=== PATIENT | male | born 1945 | race Caucasian/White ===

== ENCOUNTER 2017-08-15 11:19 | Emergency (ER) | payer OTHER ==
[2017-08-15 13:20] LABS: Basophils % (Auto) 0.5 % (0.0-1.8); Hematocrit 39.9 % (35.5-45.6); Hemoglobin 13.6 gm/dl (11.8-15.2); Mean Corpuscular HGB Conc 34 % (32-34); Mean Corpuscular Hemoglobin 30 pg (28-32); Mean Corpuscular Volume 89 fl (84-94); Platelet Count 288 K/mm3 (140-440); Red Blood Count 4.47 M/mm3 (3.65-5.03); Red Cell Distribution Width 12.5 % (13.2-15.2)
[2017-08-15 13:39] LABS: Bilirubin,Urine NEG (Negative); Blood,Urine MOD (Negative); Ketones,Urine NEG (Negative); Leukocyte Esterase,Urine TR (Negative); Nitrite,Urine NEG (Negative); Urobilinogen,Urine < 2.0 mg/dL (<2.0)
[2017-08-15 13:41] LABS: Bacteria,Urine 1+ /HPF (Negative)
[2017-08-15 13:42] LABS: RBC,Urine > 182.0 /HPF (0.0-6.0)
[2017-08-15 13:45] LABS: Alanine Aminotransferase 9 units/L (7-56); Albumin 4.1 g/dL (3.9-5); Albumin/Globulin Ratio 1.3 %; Alkaline Phosphatase 72 units/L (35-129); Anion Gap 18 mmol/L; BUN/Creatinine Ratio 18.88; Blood Urea Nitrogen 17 mg/dL (9-20); Calcium 8.8 mg/dL (8.4-10.2); Carbon Dioxide 25 mmol/L (22-30); Chloride 100.9 mmol/L (98-107); Glucose 85 mg/dL (75-100); Potassium 4.3 mmol/L (3.6-5.0); Sodium 140 mmol/L (137-145); Total Protein 7.3 g/dL (6.3-8.2)
[2017-08-15 15:31] VITALS: BP 170/85
[2017-08-15] MEDS ORDERED: MACROBID PO ONE (16:14)
--- NOTE | 2017-08-15 16:53 | Emergency Department Report ---
HPI - General Chief Complaint: Urogenital-Male Time Seen by Provider: 08/15/17 16:09 - HPI HPI: This is a 71-year-old male who presents to the emergency department with complaint of a few days of gross blood seen during urination. He will occasionally have some pain in the lower abdomen and/or pelvis but currently does not complain of any. He does not have any trouble urinating. He cannot tell me what surgery he had but says that this happened to him one time after a surgical procedure about 10 or 15 years ago. That is also last time that he appears to have seen a physician. He has not taken anything for his symptoms prior to presentation. He denies any fever, nausea, vomiting, back pain. No recent travel or sick contacts at home. No known aggravating or alleviating factors. The patient speaks some Hebrew but there is a ring which barrier and translation is done by the patient's [id number] over the phone. ED Past Medical Hx - Past Medical History Previous Medical History?: Yes Additional medical history: blood in urine with surgery - Surgical History Additional Surgical History: blood in urine with surgery - Social History Smoking Status: Never Smoker Substance Use Type: None - Medications Home Medications: Home Medications Medication Instructions Recorded Confirmed Last Taken Type Nitrofurantoin Kings/M-Cryst 100 mg PO Q12HR #14 capsule 08/15/17 Unknown Rx [Macrobid CAP] ED Review of Systems ROS: Stated complaint: BLOOD IN URINE Other details as noted in HPI Comment: All other systems reviewed and negative Constitutional: denies: chills, fever Eyes: denies: eye pain, eye discharge, vision change ENT: denies: ear pain, throat pain Respiratory: denies: cough, shortness of breath, wheezing Cardiovascular: denies: chest pain, palpitations Gastrointestinal: denies: nausea, vomiting Genitourinary: hematuria. denies: discharge Musculoskeletal: denies: back pain, joint swelling, arthralgia Skin: denies: rash, lesions Neurological: denies: headache, weakness, paresthesias Physical Exam - Physical Exam Vital Signs: Vital Signs 08/15/17 08/15/17 08/15/17 12:13 15:28 15:30 Temperature 98.2 F Pulse Rate 77 74 Respiratory 16 16 16 Rate Blood Pressure 174/90 Blood Pressure 170/85 [Left] O2 Sat by Pulse 98 100 Oximetry Physical Exam: GENERAL: The patient is well-developed well-nourished. HENT: Normocephalic. Atraumatic. Patient has moist mucous membranes. EYES: Extraocular motions are intact. Pupils equal reactive to light bilaterally. NECK: Supple. Trachea is midline. CHEST/LUNGS: Clear to auscultation. There is no respiratory distress noted. HEART/CARDIOVASCULAR: Regular. There is no tachycardia. There is no gallop rub or murmur. ABDOMEN: Abdomen is soft, nontender. Patient has normal bowel sounds. There is no abdominal distention. SKIN: Skin is warm and dry. NEURO: The patient is awake, alert, and oriented. The patient is cooperative. The patient has no focal neurologic deficits. The patient has normal speech and gait. MUSCULOSKELETAL: There is no tenderness or deformity. There is no limitation range of motion. There is no evidence of acute injury. ED Course Vital Signs 08/15/17 08/15/17 08/15/17 12:13 15:28 15:30 Temperature 98.2 F Pulse Rate 77 74 Respiratory 16 16 16 Rate Blood Pressure 174/90 Blood Pressure 170/85 [Left] O2 Sat by Pulse 98 100 Oximetry ED Medical Decision Making - Lab Data Result diagrams: 08/15/17 13:09 08/15/17 13:09 - Radiology Data Radiology results: report reviewed PROCEDURE: CT ABDOMEN PELVIS W CON TECHNIQUE: Computerized axial tomography of the abdomen and pelvis was performed after the IV injection of iodinated nonionic contrast. HISTORY: low abdominal pain, gross hematuria COMPARISON: No prior studies are available for comparison. FINDINGS: Visualized lower thorax: No significant abnormality. Liver: Normal size and attenuation. Spleen: Normal size and attenuation. Gallbladder and biliary system: Gallbladder is present. Pancreas: Normal. Adrenals: Normal. Kidneys: 6 millimeter low-density cyst in the right kidney midpole. GI tract: Appendix is visualized and does not appear inflamed. No bowel obstruction or inflammation. Lymph nodes and mesentery: Normal. Vasculature: Normal. Bladder: There is a lobular high density intraluminal filling defect, possibly related to soft tissue mass. This could also be related to blood clot. This measures up to 3.7 centimeters in maximum dimension. Reproductive organs: The prostate gland is heterogeneously enhancing and enlarged, measuring up to 5.9 centimeters transverse x 4.9 centimeters AP x 4.1 centimeters craniocaudal. Peritoneum: No free fluid. Musculoskeletal structures: Degenerative disc changes of the lumbar spine. Other: None. IMPRESSION: High density lobular filling defect within the urinary bladder may be related to blood clot or soft tissue mass. Pre contrast images could be obtained to determine if this area is enhancing or high density related to blood products. Recommend urology follow-up. Enlarged heterogeneous prostate gland. Recommend further evaluation - Medical Decision Making 71-year-old male presents with a few days of gross hematuria. He doesn't have any significant discomfort but is concerned about the hematuria and has not had followed up with a primary care physician about 10-15 years. His labs are mostly unremarkable except for the urinalysis which does show a urinary tract infection as well as the hematuria. Vital signs stable including being afebrile. A CT of the abdomen and pelvis was done that showed a filling defect of the bladder that could be a blood clot versus a soft tissue mass as well as showing some enlarged prostate. He was started on antibiotics for a urinary tract infection, which could be the source of the hematuria as well. However the patient understands that he will need to follow up with urology to make sure that the hematuria is not secondary to any type of malignancy or any other underlying condition. Using a family member as translation, all the questions were answered. - Differential Diagnosis UTI, malignancy, interstitial cystitis, nephrolithiasis Critical Care Time: No Critical care attestation.: If time is entered above; I have spent that time in minutes in the direct care of this critically ill patient, excluding procedure time. ED Disposition Clinical Impression: Gross hematuria, Enlarged prostate Hypertension Qualifiers: Hypertension type: essential hypertension Qualified Code(s): I10 - Essential ( primary) hypertension Disposition: DC- TO HOME OR SELFCARE Is pt being admited?: No Condition: Stable Instructions: Urinary Tract Infection in Men (ED), Acute Hematuria (ED), Hypertension (ED) Additional Instructions: Please follow up with a urologist as soon as possible. I have given you a referral for a local urologist, Dr. Seaman. Return to the emergency Department with any worsening of your symptoms or any acute distress. Take the antibiotics as prescribed. I have also given you a referral for some primary care physician's regarding your elevated blood pressure and to establish care for yearly annual physicals. Prescriptions: Nitrofurantoin Kings/M-Cryst [Macrobid CAP] 100 mg PO Q12HR #14 capsule Referrals: PRIMARY CARE, [Primary Care Provider] - 3-5 Days SALBADOR SEAMAN MD [Staff Physician] - 3-5 Days RUBINA BLACK JR, MD [Staff Physician] - 3-5 Days Forms: Work/School Release Form(ED) Time of Disposition: 19:35
[2017-08-15] MEDS ORDERED: NACL ONE (17:56)
--- NOTE | 2017-08-15 19:19 | Cat Scan Report ---
FINAL REPORT PROCEDURE: CT ABDOMEN PELVIS W CON TECHNIQUE: Computerized axial tomography of the abdomen and pelvis was performed after the IV injection of iodinated nonionic contrast. HISTORY: low abdominal pain, gross hematuria COMPARISON: No prior studies are available for comparison. FINDINGS: Visualized lower thorax: No significant abnormality. Liver: Normal size and attenuation. Spleen: Normal size and attenuation. Gallbladder and biliary system: Gallbladder is present. Pancreas: Normal. Adrenals: Normal. Kidneys: 6 millimeter low-density cyst in the right kidney midpole. GI tract: Appendix is visualized and does not appear inflamed. No bowel obstruction or inflammation. Lymph nodes and mesentery: Normal. Vasculature: Normal. Bladder: There is a lobular high density intraluminal filling defect, possibly related to soft tissue mass. This could also be related to blood clot. This measures up to 3.7 centimeters in maximum dimension. Reproductive organs: The prostate gland is heterogeneously enhancing and enlarged, measuring up to 5.9 centimeters transverse x 4.9 centimeters AP x 4.1 centimeters craniocaudal. Peritoneum: No free fluid. Musculoskeletal structures: Degenerative disc changes of the lumbar spine. Other: None. IMPRESSION: High density lobular filling defect within the urinary bladder may be related to blood clot or soft tissue mass. Pre contrast images could be obtained to determine if this area is enhancing or high density related to blood products. Recommend urology follow-up. Enlarged heterogeneous prostate gland. Recommend further evaluation
== END 2017-08-15 20:06 | disposition home or self-care (01) ==
LOC: ED 11:19
DX: R31.0 Gross hematuria (principal); I10 Essential (primary) hypertension; N40.0 Benign prostatic hyperplasia without lower urinary tract symptoms
CPT/HCPCS: 36415; 74177; 80053; 81001; 85025; 85730; 99284; Q9967

== ENCOUNTER 2017-08-23 07:09 | Day surgery (SDC) | payer OTHER ==
[2017-08-23] MEDS ORDERED: NACL BACTERIOSTATIC INFILTRATI ONE (07:28)
[2017-08-23] MEDS ORDERED: PEPCID PO NR (08:00)
[2017-08-23] MEDS ORDERED: NACL 0.9% 1000 ML 1,000 ML IV SCH (08:00)
--- NOTE | 2017-08-23 08:13 | Anesthesia Consultation ---
Anesthesia Consult and Med Hx Date of service: 08/23/17 - Airway Anesthetic Teeth Evaluation: Caps ROM Head & Neck: Adequate Mental/Hyoid Distance: Adequate Mallampati Class: Class II Intubation Access Assessment: Possibly Difficult - Pulmonary Exam CTA: Yes - Cardiac Exam Cardiac Exam: RRR - Pre-Operative Health Status ASA Pre-Surgery Classification: ASA1 Proposed Anesthetic Plan: General - Pulmonary Hx Smoking: No Hx Sleep Apnea: No (BECKI PRE SCREEN HIGH RISK) - Cardiovascular System Hx Hypertension: Yes (patient denies) - Central Nervous System Hx Neuromuscular Disorder: No (patient has redness and swelling left big toe - gout???) - Other Systems Hx Cancer: No - Additional Comments Anesthesia Medical History Comments: has had GA in past with no problems; speaks Maltese only
--- NOTE | 2017-08-23 08:14 | Anesthesia Day of Surgery ---
Anesthesia Day of Surgery - Day of Surgery Patient Examined: Yes Patient H&P Reviewed: Yes Patient is NPO: Yes
[2017-08-23 08:51] LABS: INR 0.94 (0.87-1.13)
[2017-08-23] MEDS: DILAUDID IV PRN ×4 (08:55→11:35)
[2017-08-23] MEDS ORDERED: DILAUDID ONE (09:58)
[2017-08-23] MEDS ORDERED: XYLOCAINE MPF 2% ONE (09:59)
[2017-08-23] MEDS ORDERED: DIPRIVAN 10 MG/ML IV ONE (09:59)
[2017-08-23] MEDS ORDERED: GARAMYCIN 120 MG in NACL 0.9% 100 ML IV SCH (10:00)
[2017-08-23] MEDS ORDERED: ANCEF/STERILE WATER 2 GM/20 ML IV NR (10:00)
[2017-08-23] MEDS ORDERED: GARAMYCIN/NS 120MG/100ML 120 MG/100 ML BAG IV SCH (10:30)
[2017-08-23] MEDS ORDERED: ZOFRAN ONE (10:38)
[2017-08-23] MEDS ORDERED: LASIX ONE (11:00)
[2017-08-23] MEDS ORDERED: WATER FOR IRRIG STERILE IR ONE (11:00)
[2017-08-23] MEDS ORDERED: ANCEF/STERILE WATER 2 GM/20 ML 2 GM/20 ML SYRINGE IV NR (11:00)
--- NOTE | 2017-08-23 11:08 | Discharge Summary ---
Short Stay Discharge Plan Activity: other (no straining ) Weight Bearing Status: Full Weight Bearing Diet: low fat, low cholesterol Special Instructions: other (teach [facility] care ) Durable Medical Equipment Needed Upon Discharge: other (castle ) Follow up with: PRIMARY CARE, [Primary Care Provider] - 7 Days OLAYINKA MALDONADO MD [Staff Physician] - 3 Days
--- NOTE | 2017-08-23 11:09 | Post Operative Note ---
Date of procedure: 08/23/17 Pre-op diagnosis: hematuria inc psa Post-op diagnosis: same Findings: nodular gland vascuklar Procedure: cysto rpg bipsies Anesthesia: GETA Surgeon: OLAYINKA MALDONADO Estimated blood loss: minimal Pathology: list (prostate) Specimen disposition: to lab Condition: stable Disposition: PACU
--- NOTE | 2017-08-23 11:39 | Fluoroscopy Report ---
RETROGRADE PYELOGRAM: History: Gross hematuria, elevated PSA. There is adequate filling of the ureters and intrarenal collecting systems with no filling defects or anatomic abnormalities identified. Please correlate with the procedural report by Dr. Murphy. Impression: No abnormality detected.
--- NOTE | 2017-08-23 12:08 | Post Anesthesia Evaluation ---
- Post Anesthesia Evaluation Patient Participated: Yes Airway Patent: Yes Stable Respiratory Function: Yes Nausea/Vomiting: No Temp > 96.8F: Yes Pain Manageable: Yes Adequeate Hydration: Yes Anesthesia Complications: No Block Receding Appropriately: Not Applicable Patient on Ventilator: No
[2017-08-23] MEDS ORDERED: NORCO 5/325 PO ONE (13:00)
--- NOTE | 2017-08-23 13:06 | Operative Report ---
PREOPERATIVE DIAGNOSES: Elevated PSA, enlarged prostate, possible bladder mass, hematuria. POSTOPERATIVE DIAGNOSES: Elevated PSA, enlarged prostate, possible bladder mass, hematuria with a very large irregular/nodular prostate. PROCEDURE: Cystoscopy, retrograde; prostate biopsy. SURGEON: Eric Murphy MD ANESTHESIA: General. FINDINGS: The gentleman from [facility] with a questionable previous urological history, who now presents for cystoscopy with hematuria and elevated PSA. DESCRIPTION OF PROCEDURE: The patient brought to the operating room and placed on the operating table. Following induction of anesthesia, placed in lithotomy position, prepped and draped in usual sterile fashion. Cystourethroscopy showed a very nodular prostate with inflammatory changes, open bladder neck, as if he had some sort of previous procedure. It was irregular and nodular. Bladder was 2+ trabeculated. There were no bladder tumors noted and the prostate was very vascular with large varices on the prostate. Retrograde showed good filling, good drainage. At this point, the ultrasound probe was placed, 6 biopsies on the right and 5 on the left was carried out. The patient tolerated the procedure well. Good core biopsies were obtained. No significant complication. The patient tolerated the procedure well and brought to recovery in stable condition. He has a 22-Maxwell. We let the family know have the Maxwell for a few days, need to await the pathology and see if there is any previous history that is relevant for this patient. JOB# [id number] CLAIRE/ISABEL
[2017-08-23] MEDS ORDERED: TRANSDERM-SCOP TD NR (14:36)
[2017-08-23] MEDS ORDERED: REGLAN IM ONE (16:59)
[2017-08-24 11:20] VITALS: BP 139/81
--- NOTE | 2017-08-24 12:02 | Ultrasound Report ---
ULTRASOUND GUIDANCE INTRAOPERATIVE - TRANSRECTAL: HISTORY: Prostate biopsy. Increased PSA. COMPARISON: None similar. FINDINGS: Transabdominal ultrasound guidance provided for Dr. Murphy for prostate biopsy. Prostate estimated at 45.5 cc. CONCLUSION: Prostate biopsy performed under ultrasound guidance. Thank you for the opportunity to participate in this patient's care.
== END 2017-08-23 17:37 | disposition home or self-care (01) ==
LOC: OR 07:09
PROVIDERS: ATTEND Urology
DX: N40.1 Benign prostatic hyperplasia with lower urinary tract symptoms (principal); R31.9 Hematuria, unspecified; N32.89 Other specified disorders of bladder; I10 Essential (primary) hypertension
CPT/HCPCS: 36415; 52005; 55700; 74420; 76998; 85610; 86850; 86900; 86901; 88305; 88341; 88342; 88344; A4217; J1170; J1580; J1940; J2405; J2704; J2765; J7030; Q9967

== ENCOUNTER 2022-07-13 00:52 | Inpatient (IN) | payer OTHER, MEDICARE ==
[2022-07-13] MEDS: NORepinephrine/NS 8 MG-250 ML 8 MG/250 ML INFUS..BTL IV SCH ×3 (00:58→16:31)
[2022-07-13] MEDS ORDERED: SODIUM CHLORIDE 0.9% 1000 ML 1,000 ML IV ONE (01:01)
--- NOTE | 2022-07-13 01:29 | XRay Report ---
Chest single view INDICATION: Chest pain IMPRESSION: Severe bilateral multifocal pneumonia especially within the right upper lobe where it is most severe. Endotracheal tube terminates at the level the mayra near the junction with the right ma instem bronchus and should be withdrawn 3 to 4 cm. Esophagogastric tube terminates within the stomach . Signer Name: López Chandler MD Signed: 07/13/2022 1:25 AM Workstation Name: [id number]
[2022-07-13 01:31] LABS: ABG Base Excess -20.8 mmol/L (-2.0-3.0); ABG HCO3 10.8 mmol/L (20.0-26.0); ABG Methemoglobin 0.8 % (0.0-1.5); ABG Oxygen Saturation 98.8 % (95.0-99.0); ABG PCO2 50.4 mm Hg; ABG PO2 197.4 mm Hg (80.0-90.0)
[2022-07-13 01:37] LABS: ABG PH 6.95 pH Units (7.350-7.450)
[2022-07-13 01:46] LABS: Mean Corpuscular HGB Conc 31 % (32-34); Mean Corpuscular Volume 97 fl (84-94); Platelet Count 211 K/mm3 (140-440); Red Cell Distribution Width 15.7 % (13.2-15.2)
[2022-07-13 01:48] LABS: Creatine Kinase MB 8.9 ng/mL (0.0-4.0)
[2022-07-13 01:50] LABS: Hematocrit 38.9 % (35.5-45.6); Hemoglobin 11.9 gm/dl (11.8-15.2)
[2022-07-13] MEDS ORDERED: SODIUM BICARBONATE 50 MEQ in SODIUM CHLORIDE 0.9% 1000 ML 1,000 ML IV SCH (02:00)
[2022-07-13] MEDS ORDERED: NORepinephrine/NS 8 MG-250 ML 8 MG/250 ML INFUS..BTL IV SCH (02:00)
[2022-07-13 02:02] LABS: INR 1.59 (0.87-1.13)
[2022-07-13 02:10] LABS: C-Reactive Protein 57.8 mg/dL (0.00-1.30)
[2022-07-13 02:22] LABS: Band Neutrophils # (Manual) 1.3 K/mm3; Basophils % (Manual) 0 % (0.0-1.8); Eosinophils % (Manual) 0 % (0.0-4.3); Platelet Estimate Consistent w Auto; Total Cells Counted 100
[2022-07-13 02:23] LABS: Albumin 2.7 g/dL (3.9-5); Calcium 8.3 mg/dL (8.4-10.2)
[2022-07-13 02:37] LABS: Color,Urine Yellow (Yellow)
[2022-07-13 02:41] LABS: Granular Casts,Urine 13 /LPF; Sperm,Urine 3+ /HPF (NP); WBC,Urine < 1.0 /HPF (0.0-6.0)
[2022-07-13 02:47] LABS: Amphetamine Screen,Urine Negative; Benzodiazepines Screen,Urine Negative; Cannabinoid Screen,Urine Negative; Cocaine Screen,Urine Negative; Methadone Screen,Urine Negative; Opiate Screen,Urine Negative
[2022-07-13] MEDS ORDERED: PIPERACILLIN/TAZOBACTAM 3.375 3.375 GM/50 ML BAG IV ONE (03:13)
--- NOTE | 2022-07-13 03:18 | Emergency Department Report ---
ED General Adult HPI - General Chief complaint: Cardiac Arrest/CPR Stated complaint: CARDIC ARREST PUI?: No Time Seen by Provider: 07/13/22 01:01 Source: EMS Mode of arrival: Stretcher Limitations: Other - History of Present Illness Initial comments: Per [facility] med 3, pt was using bathroom and went unresponsive. Down time 5 mins prior to EMS arrival. Pt was asystole on EMS arrival and compressions started. 2 rounds epi and 1 bicarb given and pt converted to sinus tach. Epi drip was started at 4 mcg/min by EMS. BG 162. 7.0 ETT established en route. Pt arrived to ED, EMS actively bagging pt. -: Sudden, minutes(s) Worsens with: none Associated Symptoms: denies: denies other symptoms, confusion, chest pain - Related Data Home Medications Medication Instructions Recorded Confirmed Last Taken No Known Home Medications [No 08/23/17 08/23/17 Unknown Reported Home Medications] Allergies Allergy/AdvReac Type Severity Reaction Status Date / Time No Known Allergies Allergy Verified 08/19/17 12:06 ED Review of Systems ROS: Stated complaint: CARDIC ARREST Other details as noted in HPI Comment: Unobtainable due to pts medical conditions ED Past Medical Hx - Past Medical History Previous Medical History?: Yes Hx Hypertension: Yes (patient denies) Additional medical history: blood in urine with surgery. enlarged prostate. bladder cancer? - Surgical History Past Surgical History?: Yes Additional Surgical History: blood in urine with surgery - Social History Smoking Status: Never Smoker - Medications Home Medications: Home Medications Medication Instructions Recorded Confirmed Last Taken Type No Known Home Medications [No 08/23/17 08/23/17 Unknown History Reported Home Medications] ED Physical Exam - General Limitations: Other General appearance: other (unresponisve intubated ) - Head Head exam: Present: atraumatic, normocephalic - Eye Eye exam: Present: other (irreactive ) - ENT ENT exam: Present: mucous membranes moist - Neck Neck exam: Present: normal inspection - Respiratory Respiratory exam: Present: wheezes, rales. Absent: respiratory distress - Cardiovascular Cardiovascular Exam: Present: normal rhythm, tachycardia. Absent: systolic murmur, diastolic murmur, rubs, gallop - GI/Abdominal GI/Abdominal exam: Present: soft, normal bowel sounds - Rectal Rectal exam: Present: deferred - Extremities Exam Extremities exam: Present: normal inspection - Back Exam Back exam: Present: normal inspection - Expanded Neurological Exam Expanded Best Eye Response (Tabor): (1) no response Best Motor Response (Erick): (1) no motor response Best Verbal Response (Tabor): (1) no verbal response Tabor Total: 3 - Skin Skin exam: Present: warm, dry, intact, normal color. Absent: rash ED Course Vital Signs 07/13/22 07/13/22 07/13/22 00:51 00:56 01:00 Temperature 97.5 F L Pulse Rate 98 H 105 H 111 H Respiratory 22 22 22 Rate Blood Pressure 68/28 Blood Pressure 52/31 [Left] O2 Sat by Pulse 94 94 92 Oximetry 07/13/22 07/13/22 07/13/22 01:06 01:10 01:15 Temperature Pulse Rate 134 H 133 H 138 H Respiratory 22 22 22 Rate Blood Pressure 155/70 154/63 164/83 Blood Pressure [Left] O2 Sat by Pulse 99 100 100 Oximetry 07/13/22 07/13/22 07/13/22 01:20 01:26 01:29 Temperature Pulse Rate 148 H 123 H 113 H Respiratory 22 22 Rate Blood Pressure 172/77 122/59 68/28 Blood Pressure [Left] O2 Sat by Pulse 100 100 98 Oximetry 07/13/22 07/13/22 07/13/22 01:30 01:36 01:40 Temperature Pulse Rate 131 H 111 H 94 H Respiratory 22 22 28 H Rate Blood Pressure 156/80 110/47 45/27 Blood Pressure [Left] O2 Sat by Pulse 100 99 93 Oximetry 07/13/22 07/13/22 07/13/22 01:46 01:50 01:55 Temperature Pulse Rate 72 140 H Respiratory 28 H 27 H 28 H Rate Blood Pressure 249/161 Blood Pressure [Left] O2 Sat by Pulse 86 82 L Oximetry 07/13/22 07/13/22 07/13/22 02:00 02:06 02:10 Temperature Pulse Rate 127 H 105 H 97 H Respiratory 28 H 28 H 28 H Rate Blood Pressure 249/161 72/43 74/43 Blood Pressure [Left] O2 Sat by Pulse 94 100 100 Oximetry 07/13/22 07/13/22 02:16 02:20 Temperature Pulse Rate 88 83 Respiratory 28 H 28 H Rate Blood Pressure 80/44 81/44 Blood Pressure [Left] O2 Sat by Pulse 100 100 Oximetry - ABG Interpretation Ph: 6.9 PCO2: 50 PO2: 195 Interpretation: metabolic acidosis - Central Line Placement Right IJ Consent Obtained: emergent situation Time Out Performed: Yes Patient Placed on Monitor/Pulse Ox: Yes Prep: mask, gown, gloves Central Line Prep: Chlorhexidine scrub Local Anesthesia Used: Lidocaine 1% Ultrasound Used for Placement: Yes Central Line Lumen Inserted: triple Reason for Insertion: Emergency Venous Access Bloods Obtained for Lab: No Central Line Position: good blood return, all ports aspirated, flus, sutured in place with 3-0, sutured in place with nyl Dressing Applied: Tegaderm, sterile gauze/tape Post Procedure X-Ray: tip of catheter in good p Patient Tolerated Procedure: well, no complications Complications: none ED Medical Decision Making - Lab Data Result diagrams: 07/13/22 01:06 07/13/22 01:06 - EKG Data -: EKG Interpreted by Me EKG shows normal: sinus rhythm Rate: tachycardia - EKG Data Interpretation: nonspecific ST-T wave yordan, other (RBBB) - Radiology Data Radiology results: report reviewed, image reviewed - Medical Decision Making work up showed : respiratory failure : intubated acidosis : 2ry to sepsis and ANA MARIA , bicarb and drip - Oneumonia cultures and abx - abnormal ekg : spoke with dr gilbert sent him a pict of EKG , will rule him out for PE gfr is low, will get v/q scan in am will start heparin untill then after ruling out ICH Critical Care Time: Yes Critical care time in (mins) excluding proc time.: 120 Critical care attestation.: If time is entered above; I have spent that time in minutes in the direct care of this critically ill patient, excluding procedure time. Critical Care Time: 120 ED Disposition Clinical Impression: Cardiac arrest, Sepsis, ANA MARIA (acute kidney injury), Pneumonia Disposition: ADMITTED INPATIENT Is pt being admited?: Yes Does the pt Need Aspirin: No Condition: Critical Instructions: Bacterial Pneumonia (ED) Referrals: LAURO CAMP MD [Primary Care Provider] - 3-5 Days
[2022-07-13] MEDS ORDERED: HEPARIN 10,000 UNITS/10 ML VIAL IV ONE (03:20)
--- NOTE | 2022-07-13 03:27 | XRay Report ---
Chest single view INDICATION: Chest pain IMPRESSION: Right IJ central venous line terminates at the SVC/right atrial junction. Severe bilatera l airspace pneumonia. No pneumothorax. Signer Name: López Chandler MD Signed: 07/13/2022 3:23 AM Workstation Name: [id number]
--- NOTE | 2022-07-13 03:55 | Cat Scan Report ---
CT head without contrast INDICATION : Cardiac arrest with altered mental status. TECHNIQUE: Axial imaging performed from the skull apex through the skull base without the use of con trast. All CT examinations performed at this facility utilize dose modulation, iterative reconstruct ion or weight-based dosing, when appropriate, to reduce radiation dose to as low as reasonably achiev able. COMPARISON: None FINDINGS: There is complete loss of pang-white differentiation throughout the cerebral cortex. There is effacement of the sulci diffusely. There is diffuse cerebral edema also involving the posterior cr anial fossa. No evidence of hydrocephalus. There is nonspecific periventricular white matter hypodens ities. There is hypodensity involving both basal ganglia. There is moderate opacities involving the right maxillary and ethmoid sinuses. IMPRESSION: Severe loss of pang-white differentiation with diffuse cerebral edema concerning for peter re anoxic brain injury. Signer Name: López Chandler MD Signed: 07/13/2022 3:51 AM Workstation Name: [facility]
[2022-07-13 04:11] LABS: ABG Base Excess -15.1 mmol/L (-2.0-3.0); ABG HCO3 11.1 mmol/L (20.0-26.0); ABG Methemoglobin 0.7 % (0.0-1.5); ABG Oxygen Saturation 93.9 % (95.0-99.0); ABG PCO2 27.7 mm Hg; ABG PH 7.221 pH Units (7.350-7.450); ABG PO2 78.2 mm Hg (80.0-90.0)
[2022-07-13] MEDS ORDERED: ALBUTEROL 2.5 MG/3 ML NEBU IH PRN (04:25)
[2022-07-13] MEDS ORDERED: ACETAMINOPHEN 325 MG TAB PO PRN (04:25)
[2022-07-13] MEDS ORDERED: ONDANSETRON 4 MG/2 ML INJ IV PRN (04:25)
[2022-07-13] MEDS ORDERED: MORPHINE 4 MG/1 ML INJ IV PRN (04:25)
[2022-07-13] MEDS ORDERED: MORPHINE 2 MG/1 ML INJ IV PRN (04:25)
[2022-07-13] MEDS ORDERED: hydrALAZINE 20 MG/1 ML INJ IV PRN (04:31)
--- NOTE | 2022-07-13 04:37 | History and Physical Report ---
History of Present Illness Date of examination: 07/13/22 Date of admission: 07/13/22 Chief complaint: Cardiac arrest History of present illness: 76 years old male with past medical history of bladder cancer, blood in the urine, prostate problem was brought to the hospital status post cardiac arrest. Pt was using bathroom and found unresponsive. Down time 5 mins prior to EMS arrival. Pt was asystole on EMS arrival . CPR was given and patient was given 2 rounds epi and 1 bicarb given and pt converted to sinus tach. Epi drip was started at 4 mcg/min by EMS. BG 162. Patient was intubated and brought to the emergency room. EMS actively bagging pt. In the emergency room patient EKG was abnormal. Subsequently Case was discussed with on-call cardiology. Patient CT scan of the head also shows severe anoxic brain injury. Also chest x-ray shows severe bilateral pneumonia.'s were going to admit the patient we will put the patient on ICU. We consult cardiology, critical care, neurology for evaluation. Past History Past Medical History: hypertension, other (blood in urine with surgery. enlarged prostate. bladder cancer?) Past Surgical History: Other (blood in urine with surgery) Social history: no significant social history Family history: hypertension Medications and Allergies Allergies Allergy/AdvReac Type Severity Reaction Status Date / Time No Known Allergies Allergy Verified 08/19/17 12:06 Home Medications Medication Instructions Recorded Confirmed Last Taken Type No Known Home Medications [No 08/23/17 08/23/17 Unknown History Reported Home Medications] Active Meds: Active Medications Acetaminophen (Acetaminophen 325 Mg Tab) 650 mg PO Q4H PRN PRN Reason: Pain MILD(1-3)/Fever >100.5/FORD Albuterol (Albuterol 2.5 Mg/3 Ml Nebu) 2.5 mg IH Q3HRT PRN PRN Reason: Shortness Of Breath Albuterol/Ipratropium (Ipratropium/Albuterol Sulfate 3 Ml Ampul.Neb) 1 ampul IH Q6HRT SUSY Famotidine (Famotidine 20 Mg/2 Ml Inj) 20 mg IV BID USSY Hydralazine HCl (Hydralazine 20 Mg/1 Ml Inj) 10 mg IV Q6H PRN PRN Reason: Blood Pressure NORepinephrine/NS 8 MG-250 ML (Norepinephrine/Ns 8 Mg-250 Ml (Double Conc)) 8 mg in 250 mls @ 3.75 mls/hr IV TITRATE SUSY; Protocol Last Titration: 07/13/22 04:25 Dose: 20 mcg/min, 37.5 mls/hr Sodium Bicarbonate 50 meq/ (Sodium Chloride) 1,050 mls @ 100 mls/hr IV DIRE CT SUSY Last Admin: 07/13/22 02:17 Dose: 100 mls/hr Dextrose/Sodium Chloride (D5ns) 1,000 mls @ 100 mls/hr IV DIRECT SSUY Vancomycin HCl (Vancomycin/Ns 1 Gm/250 Ml) 1 gm in 250 mls @ 166.667 mls/hr IV Q12H SUSY; Protocol Piperacillin Sod/Tazobactam Sod (Zosyn/Ns 4.5gm/100ml) 4.5 gm in 100 mls @ 200 mls/hr IV Q8H SUSY; Protocol Morphine Sulfate (Morphine 2 Mg/1 Ml Inj) 2 mg IV Q4H PRN PRN Reason: Pain, Moderate (4-6) Morphine Sulfate (Morphine 4 Mg/1 Ml Inj) 4 mg IV Q4H PRN PRN Reason: Pain , Severe (7-10) Ondansetron HCl (Ondansetron 4 Mg/2 Ml Inj) 4 mg IV Q8H PRN PRN Reason: Nausea And Vomiting Sodium Chloride (Sodium Chloride 0.9% 10 Ml Flush Syringe) 10 ml IV BID SUSY Sodium Chloride (Sodium Chloride 0.9% 10 Ml Flush Syringe) 10 ml IV PRN PRN PRN Reason: LINE FLUSH Review of Systems All systems: negative Constitutional: other (Unresponsive, cardiac arrest) Exam - Constitutional Vitals: Temp Pulse Resp BP Pulse Ox 97.5 F L 85 28 H 114/57 97 07/13/22 00:51 07/13/22 03:59 07/13/22 03:46 07/13/22 03:59 07/13/22 03:59 General appearance: Present: severe distress - EENT Eyes: Present: PERRL ENT: hearing intact, clear oral mucosa - Neck Neck: Present: supple, normal ROM - Respiratory Respiratory effort: normal Respiratory: bilateral: CTA - Cardiovascular Heart Sounds: Present: S1 & S2. Absent: rub, click - Extremities Extremities: pulses symmetrical, No edema Peripheral Pulses: within normal limits - Abdominal General gastrointestinal: Present: soft, non-tender, non-distended, normal bowel sounds Male genitourinary: Present: normal - Integumentary Integumentary: Present: clear, warm, dry - Musculoskeletal Musculoskeletal: gait normal, strength equal bilaterally - Psychiatric Psychiatric: other (Patient is unresponsive on vent) - Neurologic Neurologic: CNII-XII intact, moves all extremities, other (Patient is unresponsive on vent) HEART Score - HEART Score Troponin: Troponin T 0.014 ng/mL (0.00-0.029) 07/13/22 01:06 Results - Labs CBC & Chem 7: 07/13/22 01:06 07/13/22 01:06 Labs: Laboratory Last Values WBC 11.0 K/mm3 (4.5-11.0) 07/13/22 01:06 RBC 4.00 M/mm3 (3.65-5.03) 07/13/22 01:06 Hgb 11.9 gm/dl (11.8-15.2) 07/13/22 01:06 Hct 38.9 % (35.5-45.6) 07/13/22 01:06 MCV 97 fl (84-94) H 07/13/22 01:06 MCH 30 pg (28-32) 07/13/22 01:06 MCHC 31 % (32-34) L 07/13/22 01:06 RDW 15.7 % (13.2-15.2) H 07/13/22 01:06 Plt Count 211 K/mm3 (140-440) 07/13/22 01:06 Add Manual Diff Complete 07/13/22 01:06 Total Counted 100 07/13/22 01:06 Seg Neuts % (Manual) 61.0 % (40.0-70.0) 07/13/22 01:06 Band Neutrophils % 12.0 % 07/13/22 01:06 Lymphocytes % (Manual) 13.0 % (13.4-35.0) L 07/13/22 01:06 Reactive Lymphs % (Man) 0 % 07/13/22 01:06 Monocytes % (Manual) 3.0 % (0.0-7.3) 07/13/22 01:06 Eosinophils % (Manual) 0 % (0.0-4.3) 07/13/22 01:06 Basophils % (Manual) 0 % (0.0-1.8) 07/13/22 01:06 Metamyelocytes % 11.0 % 07/13/22 01:06 Myelocytes % 0 % 07/13/22 01:06 Promyelocytes % 0 % 07/13/22 01:06 Blast Cells % 0 % 07/13/22 01:06 Nucleated RBC % Not Reportable 07/13/22 01:06 Seg Neutrophils # Man 6.7 K/mm3 (1.8-7.7) 07/13/22 01:06 Band Neutrophils # 1.3 K/mm3 07/13/22 01:06 Lymphocytes # (Manual) 1.4 K/mm3 (1.2-5.4) 07/13/22 01:06 Abs React Lymphs (Man) 0.0 K/mm3 07/13/22 01:06 Monocytes # (Manual) 0.3 K/mm3 (0.0-0.8) 07/13/22 01:06 Eosinophils # (Manual) 0.0 K/mm3 (0.0-0.4) 07/13/22 01:06 Basophils # (Manual) 0.0 K/mm3 (0.0-0.1) 07/13/22 01:06 Metamyelocytes # 1.2 K/mm3 07/13/22 01:06 Myelocytes # 0.0 K/mm3 07/13/22 01:06 Promyelocytes # 0.0 K/mm3 07/13/22 01:06 Blast Cells # 0.0 K/mm3 07/13/22 01:06 WBC Morphology Not Reportable 07/13/22 01:06 Hypersegmented Neuts Not Reportable 07/13/22 01:06 Hyposegmented Neuts Not Reportable 07/13/22 01:06 Hypogranular Neuts Not Reportable 07/13/22 01:06 Smudge Cells Not Reportable 07/13/22 01:06 Toxic Granulation Not Reportable 07/13/22 01:06 Toxic Vacuolation Not Reportable 07/13/22 01:06 Dohle Bodies Not Reportable 07/13/22 01:06 Pelger-Huet Anomaly Not Reportable 07/13/22 01:06 Merlin Rods Not Reportable 07/13/22 01:06 Platelet Estimate Consistent w auto 07/13/22 01:06 Clumped Platelets Not Reportable 07/13/22 01:06 Plt Clumps, EDTA Not Reportable 07/13/22 01:06 Large Platelets Not Reportable 07/13/22 01:06 Giant Platelets Not Reportable 07/13/22 01:06 Platelet Satelliting Not Reportable 07/13/22 01:06 Plt Morphology Comment Not Reportable 07/13/22 01:06 RBC Morphology Not Reportable 07/13/22 01:06 Dimorphic RBCs Not Reportable 07/13/22 01:06 Polychromasia Not Reportable 07/13/22 01:06 Hypochromasia Not Reportable 07/13/22 01:06 Poikilocytosis Not Reportable 07/13/22 01:06 Anisocytosis Not Reportable 07/13/22 01:06 Microcytosis Not Reportable 07/13/22 01:06 Macrocytosis Not Reportable 07/13/22 01:06 Spherocytes Not Reportable 07/13/22 01:06 Pappenheimer Bodies Not Reportable 07/13/22 01:06 Sickle Cells Not Reportable 07/13/22 01:06 Target Cells Not Reportable 07/13/22 01:06 Tear Drop Cells Not Reportable 07/13/22 01:06 Ovalocytes Not Reportable 07/13/22 01:06 Helmet Cells Not Reportable 07/13/22 01:06 Myers-Costilla Bodies Not Reportable 07/13/22 01:06 Loring Rings Not Reportable 07/13/22 01:06 Trang Cells Not Reportable 07/13/22 01:06 Bite Cells Not Reportable 07/13/22 01:06 Crenated Cell Not Reportable 07/13/22 01:06 Elliptocytes Not Reportable 07/13/22 01:06 Acanthocytes (Spur) Not Reportable 07/13/22 01:06 Rouleaux Not Reportable 07/13/22 01:06 Hemoglobin C Crystals Not Reportable 07/13/22 01:06 Schistocytes Not Reportable 07/13/22 01:06 Malaria parasites Not Reportable 07/13/22 01:06 Vincenzo Bodies Not Reportable 07/13/22 01:06 Hem Pathologist Commnt No 07/13/22 01:06 PT 20.9 Sec. (12.2-14.9) H 07/13/22 01:06 INR 1.59 (0.87-1.13) H 07/13/22 01:06 ABG pH 7.221 pH Units (7.350-7.450) L 07/13/22 03:23 ABG pCO2 27.7 mm Hg 07/13/22 03:23 ABG pO2 78.2 mm Hg (80.0-90.0) L 07/13/22 03:23 ABG HCO3 11.1 mmol/L (20.0-26.0) L 07/13/22 03:23 ABG O2 Saturation 93.9 % (95.0-99.0) L 07/13/22 03:23 ABG O2 Content 15.8 (0.0-44) 07/13/22 03:23 ABG Base Excess -15.1 mmol/L (-2.0-3.0) L 07/13/22 03:23 ABG Hemoglobin 12.1 gm/dl (14.0-18.0) L 07/13/22 03:23 ABG Carboxyhemoglobin 1.0 % (0.0-5.0) 07/13/22 03:23 ABG Methemoglobin 0.7 % (0.0-1.5) 07/13/22 03:23 Oxyhemoglobin 92.3 % (95.0-99.0) L 07/13/22 03:23 FiO2 60 % 07/13/22 03:23 Sodium 133 mmol/L (137-145) L 07/13/22 01:06 Potassium 5.1 mmol/L (3.6-5.0) H 07/13/22 01:06 Chloride 90.2 mmol/L (98-107) L 07/13/22 01:06 Carbon Dioxide 10 mmol/L (22-30) L 07/13/22 01:06 Anion Gap 38 mmol/L 07/13/22 01:06 BUN 44 mg/dL (9-20) H 07/13/22 01:06 Creatinine 2.8 mg/dL (0.8-1.3) H 07/13/22 01:06 Estimated GFR 22 ml/min 07/13/22 01:06 BUN/Creatinine Ratio 16 % 07/13/22 01:06 Glucose 197 mg/dL (75-100) H 07/13/22 01:06 Lactic Acid 18.20 mmol/L (0.7-2.0) H* 07/13/22 01:06 Calcium 8.3 mg/dL (8.4-10.2) L 07/13/22 01:06 Magnesium 3.00 mg/dL (1.7-2.3) H 07/13/22 01:06 Total Bilirubin 0.90 mg/dL (0.1-1.2) 07/13/22 01:06 AST 432 units/L (5-40) H 07/13/22 01:06 ALT 101 units/L (7-56) H 07/13/22 01:06 Alkaline Phosphatase 123 units/L (35-129) 07/13/22 01:06 Total Creatine Kinase 342 units/L (55-170) H 07/13/22 01:06 Total Creatine Kinase 422 units/L (55-170) H 07/13/22 01:06 CK-MB (CK-2) 8.9 ng/mL (0.0-4.0) H 07/13/22 01:06 CK-MB (CK-2) Rel Index 2.1 (0-4) 07/13/22 01:06 Troponin T 0.014 ng/mL (0.00-0.029) 07/13/22 01:06 C-Reactive Protein 57.80 mg/dL (0.00-1.30) H 07/13/22 01:06 NT-Pro-B Natriuret Pep 3661 pg/mL (0-900) H 07/13/22 01:06 Total Protein 4.8 g/dL (6.3-8.2) L 07/13/22 01:06 Albumin 2.7 g/dL (3.9-5) L 07/13/22 01:06 Albumin/Globulin Ratio 1.3 % 07/13/22 01:06 Lipase 11 units/L (13-60) L 07/13/22 01:06 Urine Color Yellow (Yellow) 07/13/22 01:47 Urine Turbidity Slightly cloudy (Clear) 07/13/22 01:47 Specific [place] (Man) 1.020 (1.003-1.030) 07/13/22 01:47 Ur Protein (Man) 2+ mg/dL (Negative) 07/13/22 01:47 Ur Ketones (Man) Negative (Negative) 07/13/22 01:47 Ur Nitrite (Man) Negative (Negative) 07/13/22 01:47 Urine Bilirubin (Man) Negative (Negative) 07/13/22 01:47 Leukocyte Esterase (Man) Negative (Negative) 07/13/22 01:47 Urine WBC (Auto) < 1.0 /HPF (0.0-6.0) 07/13/22 01:47 Urine RBC (Auto) 4.0 /HPF (0.0-6.0) 07/13/22 01:47 Urine RBC (Manual) 3+ (Negative) 07/13/22 01:47 Granular Casts 13 /LPF 07/13/22 01:47 Urine Yeast (Budding) Few /HPF 07/13/22 01:47 Urine Sperm 3+ /HPF (HSE ADVISOR) 07/13/22 01:47 Urine Opiates Screen Negative 07/13/22 01:47 Urine Methadone Screen Negative 07/13/22 01:47 Ur Barbiturates Screen Negative 07/13/22 01:47 Ur Phencyclidine Scrn Negative 07/13/22 01:47 Ur Amphetamines Screen Negative 07/13/22 01:47 U Benzodiazepines Scrn Negative 07/13/22 01:47 Urine Cocaine Screen Negative 07/13/22 01:47 U Marijuana (THC) Screen Negative 07/13/22 01:47 Drugs of Abuse Note Disclamer 07/13/22 01:47 - Imaging and Cardiology Chest x-ray: report reviewed CT Scan - head: report reviewed Assessment and Plan VTE prophylaxis?: Mechanical Plan of care discussed with patient/family: Yes - Patient Problems (1) Acute respiratory failure Current Visit: Yes Status: Acute Plan to address problem: Admit the patient to the ICU. Patient is status post intubation. DuoNeb by ne bulizer every 4 hours. Albuterol via nebulizer every 4 hours as needed. Reconsult critical care evaluation (2) Cardiac arrest Current Visit: Yes Status: Acute Plan to address problem: Admit the patient to ICU. We will do the serial cardiac enzymes. Echocardiogram. Cardiology evaluation (3) Anoxic brain injury Current Visit: Yes Status: Acute Plan to address problem: Patient CT scan of the head shows anoxic brain injury. Patient is unresponsive. We will monitor the patient closely. Reconsult neurology for evaluation and treatment (4) Bladder cancer Current Visit: Yes Status: Acute Plan to address problem: We will continue the home medication outpatient follow-up with urology (5) ANA MARIA (acute kidney injury) Current Visit: Yes Status: Acute Plan to address problem: Avoid nephrotoxic drug. Renally dose medication. D5 normal saline at the rate of 100 cc/h. Recheck BMP in the morning. Consult nephrology if needed (6) Pneumonia Current Visit: Yes Status: Acute Plan to address problem: Vancomycin 1 g IV every 12 hours. Zosyn 4.5 g IV every 8 hours. We will do the blood culture and sputum culture. Recheck CBC BMP in the morning. Pulmonary evaluation (7) Sepsis Current Visit: Yes Status: Acute Plan to address problem: D5 normal saline at the rate of 100 cc/h.Vancomycin 1 g IV every 12 hours. Zosyn 4.5 g IV every 8 hours. We will do the blood culture and sputum culture. Recheck CBC BMP and lactic acid in the morning. Critical care evaluation (8) DVT prophylaxis Current Visit: Yes Status: Acute Plan to address problem: SCD for DVT prophylaxis because of severe anoxic brain injury. Pepcid 20 mg IV every 12 hours for GI prophylaxis. Patient is a full code
[2022-07-13 04:58] LABS: Hematocrit 36.3 % (35.5-45.6); Hemoglobin 11.3 gm/dl (11.8-15.2)
[2022-07-13] MEDS ORDERED: PIPERACIL/TAZOBACTA 4.5/NS 100 4.5 GM/100 ML VIAL IV SCH (05:00)
[2022-07-13] MEDS ORDERED: VANCOMYCIN PHARMACY TO DOSE IV SCH (05:00)
[2022-07-13] MEDS ORDERED: VANCOMYCIN/NS 1 GM/250 ML 1 GM/250 ML BAG IV ONE (05:00)
[2022-07-13] MEDS ORDERED: D5W/0.9% NACL 1,000 ML IV SCH (05:00)
[2022-07-13] MEDS ORDERED: VANCOMYCIN/NS 1 GM/250 ML 1 GM/250 ML BAG IV SCH (05:00)
[2022-07-13 05:02] LABS: INR 1.92 (0.87-1.13)
[2022-07-13 05:11] LABS: Partial Thromboplastin Time 94.4 Sec. (24.2-36.6)
[2022-07-13] MEDS ORDERED: CALCIUM CHLORIDE 1,000 MG/10 ML SYRINGE IV ONE (09:00)
[2022-07-13] MEDS ORDERED: EPINEPHrine 1 MG/10 ML SYRINGE ONE (09:00)
[2022-07-13] MEDS ORDERED: cefTRIAXone/NS 2 GM/100 ML 2 GM/100 ML BAG IV SCH (09:00)
[2022-07-13] MEDS ORDERED: AZITHROMYCIN/NS 500 MG/250 ML 500 MG/250 ML BAG IV SCH (09:00)
[2022-07-13] MEDS ORDERED: VASOPRESSIN 20 UNIT in SODIUM CHLORIDE 0.9% 100 ML IV SCH (09:00)
[2022-07-13] MEDS ORDERED: SODIUM BICARB 8.4% 50 MEQ/50 ML SYRINGE IV ONE (09:00)
[2022-07-13] MEDS: IPRATROPIUM/ALBUTEROL SULFATE 3 ML AMPUL.NEB IH SCH ×3 (09:12→20:50)
[2022-07-13] MEDS: FAMOTIDINE 20 MG/2 ML INJ IV SCH (09:34)
[2022-07-13 10:00] LABS: Hematocrit 39.3 % (35.5-45.6); Hemoglobin 12.6 gm/dl (11.8-15.2); Mean Corpuscular HGB Conc 32 % (32-34); Mean Corpuscular Volume 92 fl (84-94); Platelet Count 164 K/mm3 (140-440); Red Blood Count 4.26 M/mm3 (3.65-5.03)
[2022-07-13] MEDS ORDERED: FAMOTIDINE 20 MG/2 ML INJ IV SCH (10:00)
[2022-07-13 10:23] LABS: Calcium 6.3 mg/dL (8.4-10.2)
--- NOTE | 2022-07-13 11:11 | Consultation ---
History of Present Illness Consult date: 07/13/22 Requesting physician: LIZ FERNANDO Reason for consult: other (out of hospital cardiac arrest) History of present illness: 76 y/o male out of hospital cardiac arrest. Per report on down for 5 minutes prior to EMS arrival and CPR was being done but patient was in asystole per documentation when EMS arrived. After 2 epi and a bicarb rosc obtained. intubated and transferred to the ED. In the ED, central line placed and started on pressors. Patient was already on an epi drip started by EMS. Head CT in the ED is consistent with anoxic brain injury, severe. This am he is not responsive. Not breathing over the vent but rate set at 28. On 60% FiO2. Past History Past Medical History: hypertension, other (blood in urine with surgery. enlarged prostate. ) Past Surgical History: Other (blood in urine with surgery) Social history: no significant social history Family history: hypertension Medications and Allergies Allergies Allergy/AdvReac Type Severity Reaction Status Date / Time No Known Allergies Allergy Verified 08/19/17 12:06 Home Medications Medication Instructions Recorded Confirmed Last Taken Type No Known Home Medications [No 08/23/17 08/23/17 Unknown History Reported Home Medications] Active Meds: Active Medications Acetaminophen (Acetaminophen 325 Mg Tab) 650 mg PO Q4H PRN PRN Reason: Pain MILD(1-3)/Fever >100.5/FORD Albuterol (Albuterol 2.5 Mg/3 Ml Nebu) 2.5 mg IH Q3HRT PRN PRN Reason: Shortness Of Breath Albuterol/Ipratropium (Ipratropium/Albuterol Sulfate 3 Ml Ampul.Neb) 1 ampul IH Q6HRT SUSY Last Admin: 07/13/22 09:12 Dose: 1 ampul Famotidine (Famotidine 20 Mg/2 Ml Inj) 20 mg IV DAILY SUSY Last Admin: 07/13/22 09:34 Dose: 20 mg Hydralazine HCl (Hydralazine 20 Mg/1 Ml Inj) 10 mg IV Q6H PRN PRN Reason: SBP >/=160; DBP >/=100 NORepinephrine/NS 8 MG-250 ML (Norepinephrine/Ns 8 Mg-250 Ml (Double Conc)) 8 mg in 250 mls @ 3.75 mls/hr IV TITRATE SUSY; Protocol Last Titration: 07/13/22 10:26 Dose: 16 mcg/min, 30 mls/hr Vasopressin 20 unit/ Sodium (Chloride) 101 mls @ 9.09 mls/hr IV TITR SUSY; Protocol Sodium Bicarbonate 150 meq/ (Sterile Water) 1,150 mls @ 100 mls/hr IV DIRECT SUSY Morphine Sulfate (Morphine 2 Mg/1 Ml Inj) 2 mg IV Q4H PRN PRN Reason: Pain, Moderate (4-6) Ondansetron HCl (Ondansetron 4 Mg/2 Ml Inj) 4 mg IV Q8H PRN PRN Reason: Nausea And Vomiting Sodium Chloride (Sodium Chloride 0.9% 10 Ml Flush Syringe) 10 ml IV BID SUSY Last Admin: 07/13/22 09:38 Dose: 10 ml Sodium Chloride (Sodium Chloride 0.9% 10 Ml Flush Syringe) 10 ml IV PRN PRN PRN Reason: LINE FLUSH Review of Systems ROS unobtainable: due to endotracheal tube, due to mental status Physical Examination Vital signs: Vital Signs Temp Pulse Resp BP Pulse Ox 97.5 F L 98 H 22 52 94 07/13/22 00:51 07/13/22 00:51 07/13/22 00:51 07/13/22 00:51 07/13/22 00:51 General appearance: comatose Eyes: non-icteric ENT: other (orally intubated) Ascultation: Bilateral: rales Results - Laboratory Findings CBC and BMP: 07/13/22 Unknown 07/13/22 Unknown ABG ABG pH 7.221 pH Units (7.350-7.450) L 07/13/22 03:23 ABG pCO2 27.7 mm Hg 07/13/22 03:23 ABG pO2 78.2 mm Hg (80.0-90.0) L 07/13/22 03:23 ABG O2 Saturation 93.9 % (95.0-99.0) L 07/13/22 03:23 PT/INR, D-dimer PT 24.4 Sec. (12.2-14.9) H 07/13/22 04:25 INR 1.92 (0.87-1.13) H 07/13/22 04:25 Abnormal lab findings: Abnormal Labs 07/13/22 07/13/22 07/13/22 01:02 01:06 01:06 WBC Hgb MCV 97 H MCHC 31 L RDW 15.7 H Lymphocytes % (Manual) 13.0 L PT INR APTT ABG pH 6.950 L* ABG pO2 197.4 H ABG HCO3 10.8 L ABG O2 Saturation ABG Base Excess -20.8 L ABG Hemoglobin 11.3 L Oxyhemoglobin Sodium 133 L Potassium 5.1 H Chloride 90.2 L Carbon Dioxide 10 L BUN 44 H Creatinine 2.8 H Glucose 197 H Lactic Acid Calcium 8.3 L Magnesium 3.00 H AST 432 H ALT 101 H Total Creatine Kinase CK-MB (CK-2) C-Reactive Protein NT-Pro-B Natriuret Pep Total Protein 4.8 L Albumin 2.7 L Lipase 11 L 07/13/22 07/13/22 07/13/22 01:06 01:06 01:06 WBC Hgb MCV MCHC RDW Lymphocytes % (Manual) PT 20.9 H INR 1.59 H APTT ABG pH ABG pO2 ABG HCO3 ABG O2 Saturation ABG Base Excess ABG Hemoglobin Oxyhemoglobin Sodium Potassium Chloride Carbon Dioxide BUN Creatinine Glucose Lactic Acid 18.20 H* Calcium Magnesium AST ALT Total Creatine Kinase 422 H CK-MB (CK-2) 8.9 H C-Reactive Protein NT-Pro-B Natriuret Pep Total Protein Albumin Lipase 07/13/22 07/13/22 07/13/22 01:06 03:23 04:25 WBC Hgb MCV MCHC RDW Lymphocytes % (Manual) PT INR APTT ABG pH 7.221 L ABG pO2 78.2 L ABG HCO3 11.1 L ABG O2 Saturation 93.9 L ABG Base Excess -15.1 L ABG Hemoglobin 12.1 L Oxyhemoglobin 92.3 L Sodium Potassium Chloride Carbon Dioxide BUN Creatinine Glucose Lactic Acid 10.50 H* Calcium Magnesium AST ALT Total Creatine Kinase 342 H CK-MB (CK-2) C-Reactive Protein 57.80 H NT-Pro-B Natriuret Pep 3661 H Total Protein Albumin Lipase 07/13/22 07/13/22 07/13/22 04:25 04:25 Unknown WBC Hgb 11.3 L MCV MCHC RDW Lymphocytes % (Manual) PT 24.4 H INR 1.92 H APTT 94.4 H* ABG pH ABG pO2 ABG HCO3 ABG O2 Saturation ABG Base Excess ABG Hemoglobin Oxyhemoglobin Sodium Potassium Chloride Carbon Dioxide BUN Creatinine Glucose Lactic Acid 8.80 H* Calcium Magnesium AST ALT Total Creatine Kinase CK-MB (CK-2) C-Reactive Protein NT-Pro-B Natriuret Pep Total Protein Albumin Lipase 07/13/22 07/13/22 Unknown Unknown WBC 4.0 L Hgb MCV MCHC RDW Lymphocytes % (Manual) PT INR APTT ABG pH ABG pO2 ABG HCO3 ABG O2 Saturation ABG Base Excess ABG Hemoglobin Oxyhemoglobin Sodium Potassium Chloride Carbon Dioxide 11 L BUN 51 H Creatinine 3.1 H Glucose 215 H Lactic Acid Calcium 6.3 L D Magnesium AST ALT Total Creatine Kinase CK-MB (CK-2) C-Reactive Protein NT-Pro-B Natriuret Pep Total Protein Albumin Lipase - Diagnostic Findings Chest x-ray: image reviewed Additional studies: reviewed CT of head Assessment and Plan 76 y/o male with out of hospital cardiac arrest, ROSC achieved but with severe anoxic brain injury on CT and comatose on exam. 1. Neuro-no cough no gag. Pupil not reactive. Severe anoxic brain injury. Likelihood of recovery is slim to none. Discussed this with daughter and (the two females are not related as this is the step mother). Daughter tearful as she is the only one who speaks italian. Discussed family dynamics with CM, a nd will follow later. Can consider neurology consult. 2. Pulm-Vent dependent, not breathing over vent. High FiO2 requirements and abnormal CXR. Possible aspiration based on pattern. Hold abx for this currently. Continue vent support 3. CV-pressor dependent, possible underlying cardiovascular disease. Continue pressors and wean for MAPs >65. Consider Echo 4. Renal-renal failure, possibly atn from cardiac arrest vs acute on chronic renal disease. Needs FENA checked and renal ultrasound 5. GI- hold on feeds for now given high pressor requirement although only one now. Once lower can start trickle feeds. GI prophylaxis 6. Overall prognosis is very very poor, especially given neurologic exam and imaging. Discussed this with the daughter at bedside as she understands and spe aks [place]. CCT 31 minutes.
[2022-07-13] MEDS ORDERED: PIPERACILLIN/TAZOBACTAM 3.375 3.375 GM/50 ML BAG IV SCH (12:00)
[2022-07-13] MEDS: SODIUM BICARBONATE 150 MEQ in WATER FOR INJECTION (PF) 1,000 ML IV SCH (12:20)
--- NOTE | 2022-07-13 13:52 | Consultation ---
History of Present Illness Consult reason: cardiac arrest History of present illness: Patient is intubated and sedated and cannot provide history. Per HPI " 76 years old male with past medical history of bladder cancer, blood in the urine, prostate problem was brought to the hospital status post cardiac arrest. Pt was using bathroom and found unresponsive. Down time 5 mins prior to EMS arrival. Pt was asystole on EMS arrival . CPR was given and patient was given 2 rounds epi and 1 bicarb given and pt converted to sinus tach. Epi drip was started at 4 mcg/min by EMS. BG 162. Patient was intubated and brought to the emergency room. EMS actively bagging pt. In the emergency room patient EKG was abnormal. Subsequently Case was discussed with on-call cardiology. Patient CT scan of the head also shows severe anoxic brain injury. Also chest x-ray shows severe bilateral pneumonia.'s were going to admit the patient we will put the patient on ICU. We consult cardiology, critical care, neurology for evaluation." He is found to be in ANA MARIA with possible anoxic brain injury, lactic acidosis and respiratory failure. He has been unresponsive since being admitted to the ICU. Past History Past Medical History: hypertension, other (blood in urine with surgery. enlarged prostate. ) Past Surgical History: Other (blood in urine with surgery) Social history: no significant social history Family history: hypertension Medications and Allergies Allergies Allergy/AdvReac Type Severity Reaction Status Date / Time No Known Allergies Allergy Verified 08/19/17 12:06 Home Medications Medication Instructions Recorded Confirmed Last Taken Type No Known Home Medications [No 08/23/17 08/23/17 Unknown History Reported Home Medications] Active Meds: Active Medications Acetaminophen (Acetaminophen 325 Mg Tab) 650 mg PO Q4H PRN PRN Reason: Pain MILD(1-3)/Fever >100.5/FORD Albuterol (Albuterol 2.5 Mg/3 Ml Nebu) 2.5 mg IH Q3HRT PRN PRN Reason: Shortness Of Breath Albuterol/Ipratropium (Ipratropium/Albuterol Sulfate 3 Ml Ampul.Neb) 1 ampul IH Q6HRT [facility] Last Admin: 07/13/22 09:12 Dose: 1 ampul Famotidine (Famotidine 20 Mg/2 Ml Inj) 20 mg IV DAILY [facility] Last Admin: 07/13/22 09:34 Dose: 20 mg Hydralazine HCl (Hydralazine 20 Mg/1 Ml Inj) 10 mg IV Q6H PRN PRN Reason: SBP >/=160; DBP >/=100 NORepinephrine/NS 8 MG-250 ML (Norepinephrine/Ns 8 Mg-250 Ml (Double Conc)) 8 mg in 250 mls @ 3.75 mls/hr IV TITRATE SUSY; Protocol Last Titration: 07/13/22 13:26 Dose: 10 mcg/min, 18.75 mls/hr Vasopressin 20 unit/ Sodium (Chloride) 101 mls @ 9.09 mls/hr IV TITR SUSY; Protocol Sodium Bicarbonate 150 meq/ (Sterile Water) 1,150 mls @ 100 mls/hr IV DIRECT S[facility] Last Admin: 07/13/22 12:20 Dose: 100 mls/hr Morphine Sulfate (Morphine 2 Mg/1 Ml Inj) 2 mg IV Q4H PRN PRN Reason: Pain, Moderate (4-6) Ondansetron HCl (Ondansetron 4 Mg/2 Ml Inj) 4 mg IV Q8H PRN PRN Reason: Nausea And Vomiting Sodium Chloride (Sodium Chloride 0.9% 10 Ml Flush Syringe) 10 ml IV BID SUSY Last Admin: 07/13/22 09:38 Dose: 10 ml Sodium Chloride (Sodium Chloride 0.9% 10 Ml Flush Syringe) 10 ml IV PRN PRN PRN Reason: LINE FLUSH Review of Systems ROS unobtainable: due to endotracheal tube, due to mental status Physical Examination Vital Signs Temp Pulse Resp BP Pulse Ox 97.5 F L 98 H 22 52/31 94 07/13/22 00:51 07/13/22 00:51 07/13/22 00:51 07/13/22 00:51 07/13/22 00:51 General appearance: no acute distress, cachectic Neck: Negative: JVD/HJR Cardiac: Positive: S1/S2 (Tachycardia) Lungs: Positive: Normal Breath Sounds, Rhonchi Neuro: Positive: Other (Intubated and sedated no purposeful movements) Abdomen: Positive: Soft Skin: Negative: Rash Extremities: Absent: edema Results 07/13/22 Unknown 07/13/22 Unknown Cardiac Enzymes 07/13/22 07/13/22 Range/Units 01:06 01:06 AST 432 H (5-40) units/L CK-MB (CK-2) 8.9 H (0.0-4.0) ng/mL Coagulation 07/13/22 07/13/22 Range/Units 01:06 04:25 PT 20.9 H 24.4 H (12.2-14.9) Sec. INR 1.59 H 1.92 H (0.87-1.13) APTT 94.4 H* (24.2-36.6) Sec. CBC 07/13/22 07/13/22 07/13/22 Range/Units 01:06 04:25 Unknown WBC 11.0 4.0 L (4.5-11.0) K/mm3 RBC 4.00 4.26 (3.65-5.03) M/mm3 Hgb 11.9 11.3 L 12.6 (11.8-15.2) gm/dl Hct 38.9 36.3 39.3 (35.5-45.6) % Plt Count 211 182 164 (140-440) K/mm3 Comprehensive Metabolic Panel 07/13/22 07/13/22 Range/Units 01:06 Unknown Sodium 133 L 138 (137-145) mmol/L Potassium 5.1 H 4.2 (3.6-5.0) mmol/L Chloride 90.2 L 102.7 (98-107) mmol/L Carbon Dioxide 10 L 11 L (22-30) mmol/L BUN 44 H 51 H (9-20) mg/dL Creatinine 2.8 H 3.1 H (0.8-1.3) mg/dL Glucose 197 H 215 H (75-100) mg/dL Calcium 8.3 L 6.3 L D (8.4-10.2) mg/dL AST 432 H (5-40) units/L ALT 101 H (7-56) units/L Alkaline Phosphatase 123 (35-129) units/L Total Protein 4.8 L (6.3-8.2) g/dL Albumin 2.7 L (3.9-5) g/dL - Imaging and Cardiology Echo: image reviewed (Normal EF, right heart not well visualized, trace TR trace MR) EKG interpretations - Telemetry EKG Rhythm: Sinus Tachycardia (Diffuse ST depression, global ischemia) Assessment and Plan Patient was found to have cardiac arrest, asystole resuscitated with anoxic brain injury lactic acidosis. His ejection fraction is normal. The etiology is likely noncardiac. He is in sinus rhythm on telemetry. No further cardiac work-up needed at this time. Prognosis is guarded given his anoxic brain injury. - Patient Problems (1) Cardiac arrest Current Visit: Yes Status: Acute
--- NOTE | 2022-07-13 17:11 | Event Note ---
Date: 07/13/22 This is a 76-year-old male with bladder cancer, hematuria, BPH and hypertension who presented to hospital on 07/13 s/p cardiac arrest via EMS. Per documentation patient was using the bathroom and was found unresponsive by and downtime prior to EMS arrival was 5 minutes. Upon EMS arrival patient was found to be in asystole and CPR was initiated and patient was given epinephrine x2, bicarb and ROSC was achieved. Patient was started on epinephrine drip via EMS and intubated in the emergency department. Upon arrival to the emergency room patient had abnormal EKG and case was discussed with on-call cardiology. CT scan of the head showed severe anoxic brain injury and CXR revealed bilateral pneumonia. Patient was admitted to the hospitalist service with consults to CCM, cardiology s/p cardiac arrest, anoxic brain injury, acute hypoxic respiratory failure, ANA MARIA, and lactic acidosis on Levophed. Hospital course to date: 07/13: Patient was started on vasopressin, extensive discussion at bedside with family and by CCM. Antibiotics discontinued. Continue supportive care. This is a 76-year-old male with bladder cancer, here for dysuria, BPH, HTN admitted s/p cardiac arrest with acute hypoxic respiratory failure, anoxic brain injury, acute kidney injury and hypotension Neuro: Anoxic brain injury -Neck supine injury evident on CT head -No cough/gag, pupillary response -No response to painful stimuli -Reorientation as needed Cardiac: s/p cardiac arrest, h/o htn -Cardiology consulted, appreciate recommendations -s/p OSH cardiac arrest with ROSC -Blood pressure monitoring per protocol -Vasopressor support with levophed and vasopressin -MAP goal greater than 65 -Echocardiogram shows LVEF greater than 55% Respiratory: Acute hypoxic respiratory failure -CCM consulted, appreciate recommendations -Intubated on 07/12 with 7.0 OETT at 24 lips -A.m. vent settings: AC/PRVC Rate 22, TV 450, PEEP 8, 100% -See RT notes for titration -A.m. ABG and CXR noted -VAP bundle -SPO2 monitoring GI: Transaminitis, moderate protein calorie malnutrition -PPI -BR: senakot s -Trend LFT : Acute kidney injury likely secondary to vasomotor nephropathy, h/o BPH -Nephrology consulted, appreciate recommendations -Sodium bicarb drip -Monitor intake and output -Renally dose medications -Avoid nephrotoxic medications -Urine lites pending -Renal US pending -Trend BMP ID: Sepsis -Hypotension, lactic acidosis, leukopenia, CXR shows severe bilateral multifocal pneumonia -COVID-19 PCR negative -f/u blood culture -Monitor WBC and temperature curve Endo: NAD -Avoid hypoglycemia -Accu-Cheks q. 6 Heme: Leukopenia -Trend CBC -Transfuse hemoglobin less than 7 -SCDs to BLE while in bed Oncology: Bladder cancer -Supportive care The high probability of a clinically significant, sudden or life threatening deterioration of the [multi] system(s) required my full and direct attention, intervention and personal management. The aggregate critical care time was [60] minutes. This time is in addition to time spent performing reported procedures but includes the following: [x] Data Review and interpretation [x] Patient assessment and monitoring of vital signs [x] Documentation [x] Medication orders and management
--- NOTE | 2022-07-13 18:05 | Ultrasound Report ---
ULTRASOUND RENAL INDICATION: sariah COMPARISON: CT abdomen and pelvis 08/15/2017. FINDINGS: RIGHT KIDNEY: Size: 9.1 cm. Echogenicity: Moderately echogenic. Parenchymal thickness: Normal. Stones: None. Hydronephrosis: None. Cyst or mass: At least 2 small cysts measuring up to 2.3 cm, the larger of the 2 simple and the 8 mm lesion possibly mildly complex.. LEFT KIDNEY: Size: 9.5 cm. Echogenicity: Moderately echogenic. Parenchymal thickness: Normal. Stones: None. Hydronephrosis: None. Cyst or mass: None. Urinary Bladder: Decompressed by Maxwell catheter. Free Fluid: None. Additional Findings: None. IMPRESSION: 1. No acute sonographic abnormality of the kidneys 2. Moderately echogenic bilateral renal parenchyma as can be seen with medical renal disease though w ithout obvious atrophy 3. Right renal simple cyst and tiny indeterminate cyst Signer Name: Ashish Solis MD Signed: 07/13/2022 6:01 PM Workstation Name: [email or web address]
[2022-07-13 19:34] LABS: Creatinine,Urine 82.2 mg/dL (0.1-20.0)
[2022-07-14] MEDS: SODIUM BICARBONATE 150 MEQ in WATER FOR INJECTION (PF) 1,000 ML IV SCH ×3 (00:49→23:44)
[2022-07-14] MEDS: IPRATROPIUM/ALBUTEROL SULFATE 3 ML AMPUL.NEB IH SCH ×5 (02:17→20:38)
[2022-07-14 03:43] LABS: Hematocrit 38.6 % (35.5-45.6); Hemoglobin 12.7 gm/dl (11.8-15.2); Mean Corpuscular HGB Conc 33 % (32-34); Mean Corpuscular Volume 91 fl (84-94); Red Blood Count 4.26 M/mm3 (3.65-5.03); Red Cell Distribution Width 15.3 % (13.2-15.2)
[2022-07-14 04:00] LABS: Platelet Count 130 K/mm3 (140-440)
[2022-07-14 04:53] LABS: Band Neutrophils # (Manual) 1.2 K/mm3; Basophils % (Manual) 0 % (0.0-1.8); Eosinophils % (Manual) 0 % (0.0-4.3); Total Cells Counted 100
[2022-07-14 04:54] LABS: Anisocytosis 1+; Crenated RBC Few; Hypochromasia 1+; Platelet Estimate Consistent w Auto
[2022-07-14 05:13] LABS: ABG Base Excess -10.5 mmol/L (-2.0-3.0); ABG HCO3 13.8 mmol/L (20.0-26.0); ABG Methemoglobin 0.5 % (0.0-1.5); ABG Oxygen Saturation 98.4 % (95.0-99.0); ABG PCO2 26.8 mm Hg; ABG PH 7.331 pH Units (7.350-7.450); ABG PO2 126.6 mm Hg (80.0-90.0)
[2022-07-14] MEDS ORDERED: LIP THERAPY VASELINE TP PRN (08:48)
[2022-07-14] MEDS ORDERED: MINERAL OIL/PETROLATUM, WHITE OPHTH OINT 3.5 GM OU PRN (08:48)
[2022-07-14] MEDS ORDERED: DEXTROSE 50% IN WATER (25GM) 50 ML SYRINGE IV PRN (08:48)
--- NOTE | 2022-07-14 09:01 | XRay Report ---
. CHEST - 1 VIEW 0843 hours INDICATION: Follow up respiratory failure COMPARISON: Yesterday FINDINGS: Support devices: Stable support device positioning. Heart: Stable cardiomediastinal silhouette. Lungs/pleura: Bibasilar infiltrates, right greater than left, appear decreased by 25%. No pleural ef fusion or pneumothorax. Additional findings: None. IMPRESSION: Minimal to mild improvement in the bibasilar infiltrates. Signer Name: Alfred Lim Jr, MD Signed: 07/14/2022 8:57 AM Workstation Name: [id number]
[2022-07-14] MEDS: SENNOSIDES/DOCUSATE SODIUM 8.6/50 MG TAB FEEDTUBE SCH ×2 (10:19→21:59)
[2022-07-14] MEDS: FAMOTIDINE 20 MG/2 ML INJ IV SCH (10:19)
[2022-07-14] MEDS: NORepinephrine/NS 8 MG-250 ML 8 MG/250 ML INFUS..BTL IV SCH (10:21)
--- NOTE | 2022-07-14 11:21 | Consultation ---
History of Present Illness - Reason for Consult acute renal failure - History of Present Illness 76-year-old male brought in status post cardiac arrest at home who is currently intubated and on pressor support with Levophed at 6 mcg/kg/min. Nephrology consult at this time secondary to acute kidney injury likely secondary to severe prerenal versus ATN in the setting of aforementioned cardiac arrest. No previous documented history of kidney disease in the past. He does have documented history of hypertension on charts that were reviewed. No family at bedside and history was obtained by review of records and discussion with primary team. Patient underwent CT of the head which unfortunately shows severe anoxic brain injury. Poor neurologic reflexes noted. Patient does have a Maxwell catheter in place with minimal urine output and essentially is an uric this morning. Past History Past Medical History: hypertension, other (blood in urine with surgery. enlarged prostate. ) Past Surgical History: Other (blood in urine with surgery) Social history: no significant social history Family history: hypertension Medications and Allergies Allergies Allergy/AdvReac Type Severity Reaction Status Date / Time No Known Allergies Allergy Verified 08/19/17 12:06 Home Medications Medication Instructions Recorded Confirmed Last Taken Type No Known Home Medications [No 08/23/17 08/23/17 Unknown History Reported Home Medications] Active Meds: Active Medications Acetaminophen (Acetaminophen 325 Mg Tab) 650 mg PO Q4H PRN PRN Reason: Pain MILD(1-3)/Fever >100.5/FORD Albuterol (Albuterol 2.5 Mg/3 Ml Nebu) 2.5 mg IH Q3HRT PRN PRN Reason: Shortness Of Breath Albuterol/Ipratropium (Ipratropium/Albuterol Sulfate 3 Ml Ampul.Neb) 1 ampul IH Q6HRT [facility] Last Admin: 07/14/22 07:30 Dose: 1 ampul Dextrose (Dextrose 50% In Water (25gm) 50 Ml Syringe) 50 ml IV Q30MIN PRN; Protocol PRN Reason: Hypoglycemia Famotidine (Famotidine 20 Mg/2 Ml Inj) 20 mg IV DAILY [facility] Last Admin: 07/14/22 10:19 Dose: 20 mg Hydralazine HCl (Hydralazine 20 Mg/1 Ml Inj) 10 mg IV Q6H PRN PRN Reason: SBP >/=160; DBP >/=100 Hydrophilic Ointment (Lip Therapy Vaseline) 1 applic TP Q2HR PRN PRN Reason: Dry Lips NORepinephrine/NS 8 MG-250 ML (Norepinephrine/Ns 8 Mg-250 Ml (Double Conc)) 8 mg in 250 mls @ 3.75 mls/hr IV TITRATE SUSY; Protocol Last Admin: 07/14/22 10:21 Dose: 6 mcg/min, 11.25 mls/hr Vasopressin 20 unit/ Sodium (Chloride) 101 mls @ 9.09 mls/hr IV TITR SUSY; Protocol Sodium Bicarbonate 150 meq/ (Sterile Water) 1,150 mls @ 100 mls/hr IV DIRECT [facility] Last Admin: 07/14/22 00:49 Dose: 100 mls/hr Insulin Human Regular (Insulin Regular, Human 100 Units/1 Ml) 0 units SUB-Q Q6H SUSY; Protocol Multi-Ingred Cream/Lotion/Oil/Oint (Mineral Oil/Petrolatum, White Ophth Oint 3.5 Gm) 1 applic OU Q4HR PRN PRN Reason: Dry Eye(s) Ondansetron HCl (Ondansetron 4 Mg/2 Ml Inj) 4 mg IV Q8H PRN PRN Reason: Nausea And Vomiting Senna/Docusate Sodium (Sennosides/Docusate Sodium 8.6/50 Mg Tab) 1 tab FEEDTUBE BID [facility] Last Admin: 07/14/22 10:19 Dose: 1 tab Sodium Chloride (Sodium Chloride 0.9% 10 Ml Flush Syringe) 10 ml IV BID [facility] Last Admin: 07/14/22 10:19 Dose: 10 ml Sodium Chloride (Sodium Chloride 0.9% 10 Ml Flush Syringe) 10 ml IV PRN PRN PRN Reason: LINE FLUSH Review of Systems ROS unobtainable: due to endotracheal tube Exam - Vital Signs Vital signs: Vital Signs Temp Pulse Resp BP Pulse Ox 97.5 F L 98 H 22 52/31 94 07/13/22 00:51 07/13/22 00:51 07/13/22 00:51 07/13/22 00:51 07/13/22 00:51 - General Appearance General appearance: appears stated age, intubated EENT: ATNC Neck: Present: neck supple, trachea midline Respiratory: Clear to Ascultation Heart: regular Gastrointestinal: Present: normal Integumentary: no rash Neurologic: other (comatose) Musculoskeletal: Present: deferred Results - Lab Results 07/14/22 03:20 07/14/22 03:20 Most recent lab results ABG pH 7.331 pH Units (7.350-7.450) L 07/14/22 04:15 ABG pCO2 26.8 mm Hg 07/14/22 04:15 ABG pO2 126.6 mm Hg (80.0-90.0) H 07/14/22 04:15 ABG HCO3 13.8 mmol/L (20.0-26.0) L 07/14/22 04:15 ABG O2 Saturation 98.4 % (95.0-99.0) 07/14/22 04:15 Calcium 6.0 mg/dL (8.4-10.2) L 07/14/22 03:20 Magnesium 3.00 mg/dL (1.7-2.3) H 07/13/22 01:06 Urine Creatinine 82.2 mg/dL (0.1-20.0) H 07/13/22 17:05 Urine Sodium 76 mmol/L 07/13/22 17:05 Assessment and Plan - Patient Problems (1) ANA MARIA (acute kidney injury) Current Visit: Yes Status: Acute Plan to address problem: likely prerenal injury versus possible underlying acute tubular necrosis in the setting of cardiac arrest. CT of the head concerning for severe anoxic brain injury and patient has poor neurologic reflexes at present time. Essentially comatose and unresponsive. Very poor prognosis at present time. Agree with gentle IV fluid hydration and pressor support in order to maintain mean arterial pressure above 65 mmHg. Avoid all nephrotoxins. Renal ultrasound reviewed and patient may have underlying chronic kidney disease at baseline. We will continue to monitor closely. (2) Acute respiratory failure Current Visit: Yes Status: Acute Plan to address problem: ventilator management per ICU team (3) Anoxic brain injury Current Visit: Yes Status: Acute Plan to address problem: CT of the head concerning for severe anoxic brain injury. (4) Cardiac arrest Current Visit: Yes Status: Acute Plan to address problem: patient currently on norepinephrine at 6 mcg/kg/min. Management per primary team at this time.
--- NOTE | 2022-07-14 11:39 | Progress Note ---
Assessment and Plan 76 y/o male with out of hospital cardiac arrest, ROSC achieved but with severe anoxic brain injury on CT and comatose on exam. : Still awaiting family to show supportive documents to determine who decision maker is. Continue supportive measures. Poor prognosis. 1. Neuro-no cough no gag. Pupil not reactive. Severe anoxic brain injury. Likelihood of recovery is slim to none. Discussed this with daughter and (the two females are not related as this is the step mother). Daughter tearful as she is the only one who speaks [place] island[place]. Discussed family dynamics with CM, and will follow later. Can consider neurology consult. 2. Pulm-Vent dependent, not breathing over vent. High FiO2 requirements and abnormal CXR. Possible aspiration based on pattern. Hold abx for this currently. Continue vent support 3. CV-pressor dependent, possible underlying cardiovascular disease. Continue pressors and wean for MAPs >65. Consider Echo 4. Renal-renal failure, possibly atn from cardiac arrest vs acute on chronic renal disease. Needs FENA checked and renal ultrasound 5. GI- hold on feeds for now given high pressor requirement although only one now. Once lower can start trickle feeds. GI prophylaxis 6. Overall prognosis is very very poor, especially given neurologic exam and imaging. Discussed this with the daughter at bedside as she understands and speaks [place]. CCT 31 minutes. Subjective Date of service: 07/14/22 Interval history: Clinically no changed. Still unresponsive, on pressors. Objective Vital Signs - 12hr 07/13/22 07/13/22 07/14/22 23:40 23:50 00:00 Temperature 98 F Pulse Rate 85 85 85 Pulse Rate [ Bilateral Throughout] Pulse Rate [ 83 From Monitor] Respiratory 28 H 28 H 28 H Rate Respiratory Rate [Bilateral Throughout] Blood Pressure 106/69 106/71 106/71 O2 Sat by Pulse 98 98 96 Oximetry 07/14/22 07/14/22 07/14/22 00:10 00:20 00:30 Temperature Pulse Rate 85 86 86 Pulse Rate [ Bilateral Throughout] Pulse Rate [ From Monitor] Respiratory 28 H 28 H 28 H Rate Respiratory Rate [Bilateral Throughout] Blood Pressure 106/71 109/71 109/74 O2 Sat by Pulse 98 98 Oximetry 07/14/22 07/14/22 07/14/22 00:36 00:40 00:50 Temperature Pulse Rate 86 86 86 Pulse Rate [ Bilateral Throughout] Pulse Rate [ From Monitor] Respiratory H 28 H Rate Respiratory Rate [Bilateral Throughout] Blood Pressure 109/74 109/74 111/71 O2 Sat by Pulse 98 98 98 Oximetry 07/14/22 07/14/22 07/14/22 01:00 01:10 01:20 Temperature Pulse Rate 85 86 85 Pulse Rate [ Bilateral Throughout] Pulse Rate [ From Monitor] Respiratory H 28 H 28 H Rate Respiratory Rate [Bilateral Throughout] Blood Pressure 100/68 100/68 103/69 O2 Sat by Pulse 98 98 Oximetry 07/14/22 07/14/22 07/14/22 01:30 01:40 01:50 Temperature Pulse Rate 85 85 85 Pulse Rate [ Bilateral Throughout] Pulse Rate [ From Monitor] Respiratory 28 H 28 H 28 H Rate Respiratory Rate [Bilateral Throughout] Blood Pressure 105/66 105/66 101/68 O2 Sat by Pulse 98 98 Oximetry 07/14/22 07/14/22 07/14/22 02:00 02:10 02:18 Temperature Pulse Rate 85 85 Pulse Rate [ 86 Bilateral Throughout] Pulse Rate [ From Monitor] Respiratory 28 H 28 H Rate Respiratory 28 H Rate [Bilateral Throughout] Blood Pressure 101/68 103/67 O2 Sat by Pulse 98 98 Oximetry 07/14/22 07/14/22 07/14/22 02:20 02:30 02:40 Temperature Pulse Rate 85 85 85 Pulse Rate [ Bilateral Throughout] Pulse Rate [ From Monitor] Respiratory 28 H 28 H 28 H Rate Respiratory Rate [Bilateral Throughout] Blood Pressure 105/68 104/69 104/69 O2 Sat by Pulse 98 98 Oximetry 07/14/22 07/14/22 07/14/22 02:50 03:00 03:10 Temperature Pulse Rate 85 85 85 Pulse Rate [ Bilateral Throughout] Pulse Rate [ From Monitor] Respiratory 28 H 28 H 28 H Rate Respiratory Rate [Bilateral Throughout] Blood Pressure 104/70 99/66 99/66 O2 Sat by Pulse 99 98 Oximetry 07/14/22 07/14/22 07/14/22 03:20 03:30 03:40 Temperature Pulse Rate 84 85 85 Pulse Rate [ Bilateral Throughout] Pulse Rate [ From Monitor] Respiratory 28 H 28 H 28 H Rate Respiratory Rate [Bilateral Throughout] Blood Pressure 102/65 92/63 92/63 O2 Sat by Pulse 98 98 Oximetry 0807/14/22 07/14/22 03:50 04:00 04:10 Temperature 97.7 F Pulse Rate 85 85 85 Pulse Rate [ Bilateral Throughout] Pulse Rate [ 87 From Monitor] Respiratory H 28 H 28 H Rate Respiratory Rate [Bilateral Throughout] Blood Pressure 81/55 83/56 83/56 O2 Sat by Pulse 98 96 98 Oximetry 07/14/22 07/14/22 07/14/22 04:20 04:30 04:40 Temperature Pulse Rate 86 86 86 Pulse Rate [ Bilateral Throughout] Pulse Rate [ From Monitor] Respiratory H 28 H 28 H Rate Respiratory Rate [Bilateral Throughout] Blood Pressure 83/56 83/56 83/56 O2 Sat by Pulse 98 98 98 Oximetry 07/14/22 07/14/22 07/14/22 04:50 05:00 05:10 Temperature Pulse Rate 88 86 89 Pulse Rate [ Bilateral Throughout] Pulse Rate [ From Monitor] Respiratory H 28 H 28 H Rate Respiratory Rate [Bilateral Throughout] Blood Pressure 91/61 83/56 83/56 O2 Sat by Pulse 100 99 99 Oximetry 07/14/22 07/14/22 07/14/22 05:20 05:30 05:40 Temperature Pulse Rate 86 87 88 Pulse Rate [ Bilateral Throughout] Pulse Rate [ From Monitor] Respiratory H 28 H 28 H Rate Respiratory Rate [Bilateral Throughout] Blood Pressure 83/56 91/61 91/61 O2 Sat by Pulse 99 99 100 Oximetry 07/14/22 07/14/22 07/14/22 05:50 06:00 06:10 Temperature Pulse Rate 89 90 90 Pulse Rate [ Bilateral Throughout] Pulse Rate [ From Monitor] Respiratory H 28 H 28 H Rate Respiratory Rate [Bilateral Throughout] Blood Pressure 113/70 107/69 107/69 O2 Sat by Pulse 98 98 Oximetry 07/14/22 07/14/22 07/14/22 06:20 06:30 06:40 Temperature Pulse Rate 91 H 91 H 89 Pulse Rate [ Bilateral Throughout] Pulse Rate [ From Monitor] Respiratory 28 H 28 H 28 H Rate Respiratory Rate [Bilateral Throughout] Blood Pressure 111/66 105/68 107/69 O2 Sat by Pulse 98 97 Oximetry 07/14/22 07/14/22 07/14/22 06:50 07:00 07:10 Temperature Pulse Rate 90 91 H 92 H Pulse Rate [ Bilateral Throughout] Pulse Rate [ From Monitor] Respiratory 28 H 28 H 28 H Rate Respiratory Rate [Bilateral Throughout] Blood Pressure 86/50 108/70 108/70 O2 Sat by Pulse 98 98 98 Oximetry 07/14/22 07/14/22 07/14/22 07:20 07:25 07:26 Temperature 97.7 F Pulse Rate 92 H 92 H Pulse Rate [ Bilateral Throughout] Pulse Rate [ From Monitor] Respiratory 28 H Rate Respiratory Rate [Bilateral Throughout] Blood Pressure 105/66 105/66 O2 Sat by Pulse 98 100 Oximetry 07/14/22 07/14/22 07/14/22 07:30 07:40 07:50 Temperature Pulse Rate 93 H 92 H 93 H Pulse Rate [ 93 H Bilateral Throughout] Pulse Rate [ From Monitor] Respiratory 28 H 28 H 28 H Rate Respiratory 28 H Rate [Bilateral Throughout] Blood Pressure 104/68 104/68 105/70 O2 Sat by Pulse 98 98 98 Oximetry 07/14/22 07/14/22 07/14/22 08:00 08:10 08:20 Temperature Pulse Rate 94 H 95 H 96 H Pulse Rate [ Bilateral Throughout] Pulse Rate [ 92 H From Monitor] Respiratory 28 H 28 H 28 H Rate Respiratory Rate [Bilateral Throughout] Blood Pressure 111/70 111/70 115/69 O2 Sat by Pulse 98 97 97 Oximetry 07/14/22 07/14/22 07/14/22 08:30 08:40 08:50 Temperature Pulse Rate 96 H 97 H 97 H Pulse Rate [ Bilateral Throughout] Pulse Rate [ From Monitor] Respiratory 28 H 28 H 28 H Rate Respiratory Rate [Bilateral Throughout] Blood Pressure 114/70 114/70 104/68 O2 Sat by Pulse 96 96 Oximetry 07/14/22 07/14/22 07/14/22 09:00 09:10 09:20 Temperature Pulse Rate 97 H 97 H 97 H Pulse Rate [ Bilateral Throughout] Pulse Rate [ From Monitor] Respiratory 28 H 28 H 28 H Rate Respiratory Rate [Bilateral Throughout] Blood Pressure 107/65 114/70 105/65 O2 Sat by Pulse 97 97 Oximetry 07/14/22 07/14/22 07/14/22 09:30 09:40 09:50 Temperature Pulse Rate 98 H 98 H 97 H Pulse Rate [ Bilateral Throughout] Pulse Rate [ From Monitor] Respiratory 28 H 28 H 28 H Rate Respiratory Rate [Bilateral Throughout] Blood Pressure 109/68 109/68 109/69 O2 Sat by Pulse 97 98 Oximetry 08/30/22 08/30/22 08/30/22 10:00 10:10 10:20 Temperature Pulse Rate 92 H 98 H 97 H Pulse Rate [ Bilateral Throughout] Pulse Rate [ From Monitor] Respiratory 28 H 28 H 28 H Rate Respiratory Rate [Bilateral Throughout] Blood Pressure 113/67 113/67 105/65 O2 Sat by Pulse 97 98 98 Oximetry 07/14/22 07/14/22 07/14/22 10:30 10:40 10:50 Temperature Pulse Rate 101 H 101 H 102 H Pulse Rate [ Bilateral Throughout] Pulse Rate [ From Monitor] Respiratory 28 H 28 H 28 H Rate Respiratory Rate [Bilateral Throughout] Blood Pressure 97/62 97/62 109/63 O2 Sat by Pulse 97 98 Oximetry 07/14/22 07/14/22 11:00 11:10 Temperature Pulse Rate 102 H 102 H Pulse Rate [ Bilateral Throughout] Pulse Rate [ From Monitor] Respiratory 28 H 28 H Rate Respiratory Rate [Bilateral Throughout] Blood Pressure 104/63 104/63 O2 Sat by Pulse 98 Oximetry Constitutional: comatose Eyes: non-icteric ENT: other (orally intubated) Ascultation: Bilateral: rales CBC and BMP: 07/14/22 03:20 07/14/22 03:20 ABG, PT/INR, D-dimer: ABG ABG pH 7.331 pH Units (7.350-7.450) L 07/14/22 04:15 ABG pCO2 26.8 mm Hg 07/14/22 04:15 ABG pO2 126.6 mm Hg (80.0-90.0) H 07/14/22 04:15 ABG O2 Saturation 98.4 % (95.0-99.0) 07/14/22 04:15 PT/INR, D-dimer PT 24.4 Sec. (12.2-14.9) H 07/13/22 04:25 INR 1.92 (0.87-1.13) H 07/13/22 04:25 Abnormal lab findings: Abnormal Labs 07/13/22 07/13/22 07/13/22 01:02 01:06 01:06 WBC Hgb MCV 97 H MCHC 31 L RDW 15.7 H Plt Count Seg Neuts % (Manual) Lymphocytes % (Manual) 13.0 L Lymphocytes # (Manual) PT INR APTT ABG pH 6.950 L* ABG pO2 197.4 H ABG HCO3 10.8 L ABG O2 Saturation ABG Base Excess -20.8 L ABG Hemoglobin 11.3 L Oxyhemoglobin Sodium 133 L Potassium 5.1 H Chloride 90.2 L Carbon Dioxide 10 L BUN 44 H Creatinine 2.8 H Glucose 197 H POC Glucose Lactic Acid Calcium 8.3 L Magnesium 3.00 H AST 432 H ALT 101 H Total Creatine Kinase CK-MB (CK-2) C-Reactive Protein NT-Pro-B Natriuret Pep Total Protein 4.8 L Albumin 2.7 L Lipase 11 L Urine Creatinine 07/13/22 07/13/22 07/13/22 01:06 01:06 01:06 WBC Hgb MCV MCHC RDW Plt Count Seg Neuts % (Manual) Lymphocytes % (Manual) Lymphocytes # (Manual) PT 20.9 H INR 1.59 H APTT ABG pH ABG pO2 ABG HCO3 ABG O2 Saturation ABG Base Excess ABG Hemoglobin Oxyhemoglobin Sodium Potassium Chloride Carbon Dioxide BUN Creatinine Glucose POC Glucose Lactic Acid 18.20 H* Calcium Magnesium AST ALT Total Creatine Kinase 422 H CK-MB (CK-2) 8.9 H C-Reactive Protein NT-Pro-B Natriuret Pep Total Protein Albumin Lipase Urine Creatinine 07/13/22 07/13/22 07/13/22 01:06 03:23 04:25 WBC Hgb MCV MCHC RDW Plt Count Seg Neuts % (Manual) Lymphocytes % (Manual) Lymphocytes # (Manual) PT INR APTT ABG pH 7.221 L ABG pO2 78.2 L ABG HCO3 11.1 L ABG O2 Saturation 93.9 L ABG Base Excess -15.1 L ABG Hemoglobin 12.1 L Oxyhemoglobin 92.3 L Sodium Potassium Chloride Carbon Dioxide BUN Creatinine Glucose POC Glucose Lactic Acid 10.50 H* Calcium Magnesium AST ALT Total Creatine Kinase 342 H CK-MB (CK-2) C-Reactive Protein 57.80 H NT-Pro-B Natriuret Pep 3661 H Total Protein Albumin Lipase Urine Creatinine 07/13/22 07/13/22 07/13/22 04:25 04:25 06:38 WBC Hgb 11.3 L MCV MCHC RDW Plt Count Seg Neuts % (Manual) Lymphocytes % (Manual) Lymphocytes # (Manual) PT 24.4 H INR 1.92 H APTT 94.4 H* ABG pH ABG pO2 ABG HCO3 ABG O2 Saturation ABG Base Excess ABG Hemoglobin Oxyhemoglobin Sodium Potassium Chloride Carbon Dioxide BUN Creatinine Glucose POC Glucose 144 H Lactic Acid Calcium Magnesium AST ALT Total Creatine Kinase CK-MB (CK-2) C-Reactive Protein NT-Pro-B Natriuret Pep Total Protein Albumin Lipase Urine Creatinine 07/13/22 07/13/22 07/13/22 11:16 15:58 16:14 WBC Hgb MCV MCHC RDW Plt Count Seg Neuts % (Manual) Lymphocytes % (Manual) Lymphocytes # (Manual) PT INR APTT ABG pH ABG pO2 ABG HCO3 ABG O2 Saturation ABG Base Excess ABG Hemoglobin Oxyhemoglobin Sodium Potassium Chloride Carbon Dioxide BUN Creatinine Glucose POC Glucose 185 H 195 H Lactic Acid 9.10 H* Calcium Magnesium AST ALT Total Creatine Kinase CK-MB (CK-2) C-Reactive Protein NT-Pro-B Natriuret Pep Total Protein Albumin Lipase Urine Creatinine 07/13/22 07/13/22 07/13/22 17:05 19:31 22:38 WBC Hgb MCV MCHC RDW Plt Count Seg Neuts % (Manual) Lymphocytes % (Manual) Lymphocytes # (Manual) PT INR APTT ABG pH ABG pO2 ABG HCO3 ABG O2 Saturation ABG Base Excess ABG Hemoglobin Oxyhemoglobin Sodium Potassium Chloride Carbon Dioxide BUN Creatinine Glucose POC Glucose Lactic Acid 9.90 H* 9.60 H* Calcium Magnesium AST ALT Total Creatine Kinase CK-MB (CK-2) C-Reactive Protein NT-Pro-B Natriuret Pep Total Protein Albumin Lipase Urine Creatinine 82.2 H 07/13/22 07/13/22 07/13/22 Unknown Unknown Unknown WBC 4.0 L Hgb MCV MCHC RDW Plt Count Seg Neuts % (Manual) Lymphocytes % (Manual) Lymphocytes # (Manual) PT INR APTT ABG pH ABG pO2 ABG HCO3 ABG O2 Saturation ABG Base Excess ABG Hemoglobin Oxyhemoglobin Sodium Potassium Chloride Carbon Dioxide 11 L BUN 51 H Creatinine 3.1 H Glucose 215 H POC Glucose Lactic Acid 8.80 H* Calcium 6.3 L D Magnesium AST ALT Total Creatine Kinase CK-MB (CK-2) C-Reactive Protein NT-Pro-B Natriuret Pep Total Protein Albumin Lipase Urine Creatinine 07/14/22 07/14/22 07/14/22 03:20 03:20 04:15 WBC Hgb MCV MCHC RDW 15.3 H Plt Count 130 L Seg Neuts % (Manual) 77.0 H Lymphocytes % (Manual) 2.0 L Lymphocytes # (Manual) 0.2 L PT INR APTT ABG pH 7.331 L ABG pO2 126.6 H ABG HCO3 13.8 L ABG O2 Saturation ABG Base Excess -10.5 L ABG Hemoglobin 12.8 L Oxyhemoglobin Sodium Potassium 3.5 L Chloride Carbon Dioxide 14 L BUN 66 H Creatinine 3.7 H Glucose 243 H POC Glucose Lactic Acid Calcium 6.0 L Magnesium AST ALT Total Creatine Kinase CK-MB (CK-2) C-Reactive Protein NT-Pro-B Natriuret Pep Total Protein Albumin Lipase Urine Creatinine
[2022-07-14] MEDS: INSULIN REGULAR, HUMAN 100 UNITS/1 ML SUB-Q SCH ×2 (11:50→18:31)
--- NOTE | 2022-07-14 12:48 | Progress Note ---
Assessment and Plan Assessment and plan: This is a 76-year-old male with bladder cancer, here for dysuria, BPH, HTN admitted s/p cardiac arrest with acute hypoxic respiratory failure, anoxic brain injury, acute kidney injury and hypotension Hospital Course to Date: 07/13: Patient was started on vasopressin, extensive discussion at bedside with family and by CCM. Antibiotics discontinued. Continue supportive care. 07/14: Patient remains unresponsive on life support. Pupils are wide and nonreactive, with no gag/cough reflexes. Neurology consult pending. BP remains labile, patient is still on Levophed and bcarb gtts.Very poor prognosis. Multiple discussion with patient's and daughters by the attending and CCM. awaiting on family's decision on goal of care. Assessment and Plan Neuro: Anoxic Brain Injury -Neck supine injury evident on CT head -No cough/gag, pupillary response -No response to painful stimuli -Reorientation as needed -Neurology consult pending Cardiac: s/p cardiac arrest, h/o htn -Cardiology consulted, appreciate recommendations -s/p OSH cardiac arrest with ROSC -Blood pressure monitoring per protocol -Vasopressor support with levophed and vasopressin -MAP goal greater than 65 -Echocardiogram shows LVEF greater than 55% Respiratory: Acute Hypoxic Respiratory Failure -CCM consulted, appreciate recommendations -Intubated on 07/12 with 7.0 OETT at 24 lips -A.m. vent settings: AC/PRVC Rate 28, TV 450, PEEP 8, 50% -See RT notes for titration -A.m. ABG and CXR noted -VAP bundle -SPO2 monitoring GI: Transaminitis, moderate protein calorie malnutrition -Shock liver, LFTs continue to worsen -Continue to trend LFTs -PPI -BR: [place] : Acute kidney injury likely secondary to vasomotor nephropathy, h/o BPH -Nephrology consulted, appreciate recommendations -Sodium bicarb drip -Monitor intake and output -Renally dose medications -Avoid nephrotoxic medications -Urine lites pending -Renal US pending -Trend BMP ID: Sepsis -Hypotension, lactic acidosis, leukopenia, CXR shows severe bilateral multifocal pneumonia -COVID-19 PCR negative -f/u blood culture -Monitor WBC and temperature curve Endo: Hyperglycemia -SSI initiated -Accu-Cheks q. 6 -Avoid Hypoglycemia Heme: Thrombocytopenia Oncology: H/o Bladder cancer- Supportive care -Drop in plt count this am -H&H stable, no s/s of any active bleeding -Continue to trend CBC -Transfuse for hgb less than 7, plt less than 20 GI/DVT Prophylaxis -PPI- Pepcid -SCDs to bilateral lower extremities while in bed Advance Care Planning - Disease education data, care plan, diagnoses, and prognosis were discussed with patient's and daughter at the bedside. All questions and concerns were addressed at this time. They acknowledged understanding and agreed with current care plan. Patient remains a FULL code status at this time The high probability of a clinically significant, sudden or life threatening deterioration of the [multiple] system(s) required my full and direct attention, intervention and personal management. The aggregate critical care time was [60] minutes. This time is in addition to time spent performing reported procedures but includes the following: [x] Data Review and interpretation [x] Patient assessment and monitoring of vital signs [x] Documentation [x] Medication orders and management Disposition Plan: ICU Total Time Spent with Patient (Minutes): 60 History Interval history: Patient seen and examined at the bedside. Intubated and unresponsive, not on any sedation. Pupils are wide and nonreactive, with no gag/cough reflexes. Patient remains on Bcarb and Levophed gtts. JENNA overnight Hospitalist Physical - Constitutional Vitals: Temp Pulse Resp BP Pulse Ox 98.3 F 102 H 28 H 104/63 98 07/14/22 11:53 07/14/22 11:10 07/14/22 11:10 07/14/22 11:10 07/14/22 11:10 General appearance: Present: no acute distress, cachectic, other (Intubated and responsived) - EENT Eyes: Present: irregular pupil, mydriasis (nonreactived) - Respiratory Respiratory effort: normal Respiratory: bilateral: rhonchi - Cardiovascular Rhythm: regular Heart Sounds: Present: S1 & S2 - Extremities Extremities: no ischemia, pulses intact, pulses symmetrical Extremity abnormal: edema - Peripheral Assessment Generalized Edema Type: Non-pitting Edema Degree: 2+ Capillary Refill: < 3 seconds Skin Temperature: Warm - Abdominal General gastrointestinal: soft, non-distended, hypoactive bowel sounds - Integumentary Integumentary: Present: warm, dry - Psychiatric Psychiatric: other (Intubated and responsive, not on sedation) - Neurologic Neurologic: focal deficits (Pupils are wide, irregular, and nonreactive with no gag/cough), other (Intubated and responsive, not on sedation) - Allied Health Allied health notes reviewed: nursing, case management HEART Score - HEART Score Troponin: Troponin T 0.014 ng/mL (0.00-0.029) 07/13/22 01:06 Results - Labs CBC & Chem 7: 07/15/22 01:30 07/15/22 01:30 Labs: Laboratory Last Values WBC 8.2 K/mm3 (4.5-11.0) 07/14/22 03:20 RBC 4.26 M/mm3 (3.65-5.03) 07/14/22 03:20 Hgb 12.7 gm/dl (11.8-15.2) 07/14/22 03:20 Hct 38.6 % (35.5-45.6) 07/14/22 03:20 MCV 91 fl (84-94) 07/14/22 03:20 MCH 30 pg (28-32) 07/14/22 03:20 MCHC 33 % (32-34) 07/14/22 03:20 RDW 15.3 % (13.2-15.2) H 07/14/22 03:20 Plt Count 130 K/mm3 (140-440) L 07/14/22 03:20 Add Manual Diff Complete 07/14/22 03:20 Total Counted 100 07/14/22 03:20 Seg Neutrophils % Junior Staff Accountant 07/14/22 03:20 Seg Neuts % (Manual) 77.0 % (40.0-70.0) H 07/14/22 03:20 Band Neutrophils % 15.0 % 07/14/22 03:20 Lymphocytes % (Manual) 2.0 % (13.4-35.0) L 07/14/22 03:20 Reactive Lymphs % (Man) 0 % 07/14/22 03:20 Monocytes % (Manual) 2.0 % (0.0-7.3) 07/14/22 03:20 Eosinophils % (Manual) 0 % (0.0-4.3) 07/14/22 03:20 Basophils % (Manual) 0 % (0.0-1.8) 07/14/22 03:20 Metamyelocytes % 4.0 % 07/14/22 03:20 Myelocytes % 0 % 07/14/22 03:20 Promyelocytes % 0 % 07/14/22 03:20 Blast Cells % 0 % 07/14/22 03:20 Nucleated RBC % Not Reportable 07/14/22 03:20 Seg Neutrophils # Man 6.3 K/mm3 (1.8-7.7) 07/14/22 03:20 Band Neutrophils # 1.2 K/mm3 07/14/22 03:20 Lymphocytes # (Manual) 0.2 K/mm3 (1.2-5.4) L 07/14/22 03:20 Abs React Lymphs (Man) 0.0 K/mm3 07/14/22 03:20 Monocytes # (Manual) 0.2 K/mm3 (0.0-0.8) 07/14/22 03:20 Eosinophils # (Manual) 0.0 K/mm3 (0.0-0.4) 07/14/22 03:20 Basophils # (Manual) 0.0 K/mm3 (0.0-0.1) 07/14/22 03:20 Metamyelocytes # 0.3 K/mm3 07/14/22 03:20 Myelocytes # 0.0 K/mm3 07/14/22 03:20 Promyelocytes # 0.0 K/mm3 07/14/22 03:20 Blast Cells # 0.0 K/mm3 07/14/22 03:20 WBC Morphology Not Reportable 07/14/22 03:20 Hypersegmented Neuts Not Reportable 07/14/22 03:20 Hyposegmented Neuts Not Reportable 07/14/22 03:20 Hypogranular Neuts Not Reportable 07/14/22 03:20 Smudge Cells Not Reportable 07/14/22 03:20 Toxic Granulation Not Reportable 07/14/22 03:20 Toxic Vacuolation Not Reportable 07/14/22 03:20 Dohle Bodies Not Reportable 07/14/22 03:20 Pelger-Huet Anomaly Not Reportable 07/14/22 03:20 Merlin Rods Not Reportable 07/14/22 03:20 Platelet Estimate Consistent w auto 07/14/22 03:20 Clumped Platelets Not Reportable 07/14/22 03:20 Plt Clumps, EDTA Not Reportable 07/14/22 03:20 Large Platelets Not Reportable 07/14/22 03:20 Giant Platelets Not Reportable 07/14/22 03:20 Platelet Satelliting Not Reportable 07/14/22 03:20 Plt Morphology Comment Not Reportable 07/14/22 03:20 RBC Morphology Not Reportable 07/14/22 03:20 Dimorphic RBCs Not Reportable 07/14/22 03:20 Polychromasia Not Reportable 07/14/22 03:20 Hypochromasia 1+ 07/14/22 03:20 Poikilocytosis Not Reportable 07/14/22 03:20 Anisocytosis 1+ 07/14/22 03:20 Microcytosis Not Reportable 07/14/22 03:20 Macrocytosis Not Reportable 07/14/22 03:20 Spherocytes Not Reportable 07/14/22 03:20 Pappenheimer Bodies Not Reportable 07/14/22 03:20 Sickle Cells Not Reportable 07/14/22 03:20 Target Cells Not Reportable 07/14/22 03:20 Tear Drop Cells Not Reportable 07/14/22 03:20 Ovalocytes Not Reportable 07/14/22 03:20 Helmet Cells Not Reportable 07/14/22 03:20 Myers-Kopperston Bodies Not Reportable 07/14/22 03:20 [place] Rings Not Reportable 07/14/22 03:20 Trang Cells Not Reportable 07/14/22 03:20 Bite Cells Not Reportable 07/14/22 03:20 Crenated Cell Few 07/14/22 03:20 Elliptocytes Not Reportable 07/14/22 03:20 Acanthocytes (Spur) Not Reportable 07/14/22 03:20 Rouleaux Not Reportable 07/14/22 03:20 Hemoglobin C Crystals Not Reportable 07/14/22 03:20 Schistocytes Not Reportable 07/14/22 03:20 Malaria parasites Not Reportable 07/14/22 03:20 Vincenzo Bodies Not Reportable 07/14/22 03:20 Hem Pathologist Commnt No 07/14/22 03:20 PT 24.4 Sec. (12.2-14.9) H 07/13/22 04:25 INR 1.92 (0.87-1.13) H 07/13/22 04:25 APTT 94.4 Sec. (24.2-36.6) H* 07/13/22 04:25 ABG pH 7.331 pH Units (7.350-7.450) L 07/14/22 04:15 ABG pCO2 26.8 mm Hg 07/14/22 04:15 ABG pO2 126.6 mm Hg (80.0-90.0) H 07/14/22 04:15 ABG HCO3 13.8 mmol/L (20.0-26.0) L 07/14/22 04:15 ABG O2 Saturation 98.4 % (95.0-99.0) 07/14/22 04:15 ABG O2 Content 17.6 (0.0-44) 07/14/22 04:15 ABG Base Excess -10.5 mmol/L (-2.0-3.0) L 07/14/22 04:15 ABG Hemoglobin 12.8 gm/dl (14.0-18.0) L 07/14/22 04:15 ABG Carboxyhemoglobin 0.8 % (0.0-5.0) 07/14/22 04:15 ABG Methemoglobin 0.5 % (0.0-1.5) 07/14/22 04:15 Oxyhemoglobin 97.0 % (95.0-99.0) 07/14/22 04:15 FiO2 60 % 07/14/22 04:15 Sodium 142 mmol/L (137-145) 07/14/22 03:20 Potassium 3.5 mmol/L (3.6-5.0) L 07/14/22 03:20 Chloride 99.2 mmol/L (98-107) 07/14/22 03:20 Carbon Dioxide 14 mmol/L (22-30) L 07/14/22 03:20 Anion Gap 32 mmol/L 07/14/22 03:20 BUN 66 mg/dL (9-20) H 07/14/22 03:20 Creatinine 3.7 mg/dL (0.8-1.3) H 07/14/22 03:20 Estimated GFR 16 ml/min 07/14/22 03:20 BUN/Creatinine Ratio 18 % 07/14/22 03:20 Glucose 243 mg/dL (75-100) H 07/14/22 03:20 POC Glucose 195 mg/dL (70-105) H 07/13/22 16:14 Lactic Acid 8.80 mmol/L (0.7-2.0) H* 07/13/22 Unknown Calcium 6.0 mg/dL (8.4-10.2) L 07/14/22 03:20 Magnesium 3.00 mg/dL (1.7-2.3) H 07/13/22 01:06 Total Bilirubin 0.90 mg/dL (0.1-1.2) 07/13/22 01:06 AST 432 units/L (5-40) H 07/13/22 01:06 ALT 101 units/L (7-56) H 07/13/22 01:06 Alkaline Phosphatase 123 units/L (35-129) 07/13/22 01:06 Total Creatine Kinase 342 units/L (55-170) H 07/13/22 01:06 Total Creatine Kinase 422 units/L (55-170) H 07/13/22 01:06 CK-MB (CK-2) 8.9 ng/mL (0.0-4.0) H 07/13/22 01:06 CK-MB (CK-2) Rel Index 2.1 (0-4) 07/13/22 01:06 Troponin T 0.014 ng/mL (0.00-0.029) 07/13/22 01:06 C-Reactive Protein 57.80 mg/dL (0.00-1.30) H 07/13/22 01:06 NT-Pro-B Natriuret Pep 3661 pg/mL (0-900) H 07/13/22 01:06 Total Protein 4.8 g/dL (6.3-8.2) L 07/13/22 01:06 Albumin 2.7 g/dL (3.9-5) L 07/13/22 01:06 Albumin/Globulin Ratio 1.3 % 07/13/22 01:06 Lipase 11 units/L (13-60) L 07/13/22 01:06 Urine Color Yellow (Yellow) 07/13/22 01:47 Urine Turbidity Slightly cloudy (Clear) 07/13/22 01:47 Specific [place] (Man) 1.020 (1.003-1.030) 07/13/22 01:47 Ur Protein (Man) 2+ mg/dL (Negative) 07/13/22 01:47 Ur Ketones (Man) Negative (Negative) 07/13/22 01:47 Ur Nitrite (Man) Negative (Negative) 07/13/22 01:47 Urine Bilirubin (Man) Negative (Negative) 07/13/22 01:47 Leukocyte Esterase (Man) Negative (Negative) 07/13/22 01:47 Urine WBC (Auto) < 1.0 /HPF (0.0-6.0) 07/13/22 01:47 Urine RBC (Auto) 4.0 /HPF (0.0-6.0) 07/13/22 01:47 Urine RBC (Manual) 3+ (Negative) 07/13/22 01:47 Granular Casts 13 /LPF 07/13/22 01:47 Urine Yeast (Budding) Few /HPF 07/13/22 01:47 Urine Sperm 3+ /HPF (COUNTERINTELLIGENCE ANALYST) 07/13/22 01:47 Urine Creatinine 82.2 mg/dL (0.1-20.0) H 07/13/22 17:05 Urine Sodium 76 mmol/L 07/13/22 17:05 Urine Opiates Screen Negative 07/13/22 01:47 Urine Methadone Screen Negative 07/13/22 01:47 Ur Barbiturates Screen Negative 07/13/22 01:47 Ur Phencyclidine Scrn Negative 07/13/22 01:47 Ur Amphetamines Screen Negative 07/13/22 01:47 U Benzodiazepines Scrn Negative 07/13/22 01:47 Urine Cocaine Screen Negative 07/13/22 01:47 U Marijuana (THC) Screen Negative 07/13/22 01:47 Drugs of Abuse Note Disclamer 07/13/22 01:47 SARS-CoV-2 (PCR) Negative (Negative) 07/13/22 07:56 Microbiology: Microbiology 07/13/22 04:11 Tracheal Aspirate Sputum Culture - Preliminary Maxwell/IV: Voiding Method Indwelling Catheter Active Medications - Current Medications Current Medications: Generic Name Dose Route Start Last Admin Trade Name Freq PRN Reason Stop Dose Admin Acetaminophen 650 mg 07/13/22 04:25 Acetaminophen 325 Mg Tab PO Q4H PRN Pain MILD(1-3)/Fever >100.5/FORD Albuterol 2.5 mg 07/13/22 04:25 Albuterol 2.5 Mg/3 Ml Nebu IH Q3HRT PRN Shortness Of Breath Albuterol/Ipratropium 1 ampul 07/13/22 08:00 07/14/22 07:30 Ipratropium/Albuterol Sulfate 3 Ml Ampul.Neb IH 1 ampul Q6HRT SUSY Administration Dextrose 50 ml 07/14/22 08:48 Dextrose 50% In Water (25gm) 50 Ml Syringe IV Q30MIN PRN Hypoglycemia Protocol Famotidine 20 mg 07/13/22 10:00 07/14/22 10:19 Famotidine 20 Mg/2 Ml Inj IV 20 mg DAILY SUSY Administration Hydralazine HCl 10 mg 07/13/22 04:31 Hydralazine 20 Mg/1 Ml Inj IV Q6H PRN SBP >/=160; DBP >/=100 Hydrophilic Ointment 1 applic 07/14/22 08:48 Lip Therapy Vaseline TP Q2HR PRN Dry Lips NORepinephrine/NS 8 MG-250 ML 8 mg in 250 mls @ 3.75 mls/hr 07/13/22 01:11 07/14/22 10:21 Norepinephrine/Ns 8 Mg-250 Ml (Double Conc) IV 6 mcg/min TITRATE SUSY 11.25 mls/hr Administration Protocol 2 MCG/MIN Vasopressin 20 unit/ Sodium 101 mls @ 9.09 mls/hr 07/13/22 09:00 Chloride IV TITR SUSY Protocol 0.03 UNITS/MIN Sodium Bicarbonate 150 meq/ 1,150 mls @ 100 mls/hr 07/13/22 11:00 07/14/22 11:50 Sterile Water IV 100 mls/hr DIRECT SUSY Administration Insulin Human Regular 0 units 07/14/22 12:00 07/14/22 11:50 Insulin Regular, Human 100 Units/1 Ml SUB-Q 2 units Q6H SUSY Administration Protocol Multi-Ingred Cream/Lotion/Oil/Oint 1 applic 07/14/22 08:48 Mineral Oil/Petrolatum, White Ophth Oint 3.5 Gm OU Q4HR PRN Dry Eye(s) Ondansetron HCl 4 mg 07/13/22 04:25 Ondansetron 4 Mg/2 Ml Inj IV Q8H PRN Nausea And Vomiting Senna/Docusate Sodium 1 tab 07/14/22 10:00 07/14/22 10:19 Sennosides/Docusate Sodium 8.6/50 Mg Tab FEEDTUBE 1 tab BID SUSY Administration Sodium Chloride 10 ml 07/13/22 10:00 07/14/22 10:19 Sodium Chloride 0.9% 10 Ml Flush Syringe IV 10 ml BID SUSY Administration Sodium Chloride 10 ml 07/13/22 04:25 Sodium Chloride 0.9% 10 Ml Flush Syringe IV PRN PRN LINE FLUSH Nutrition/Malnutrition Assess - Dietary Evaluation Nutrition/Malnutrition Findings: Nutrition Notes Start: 07/13/22 14:52 Freq: Status: Active Protocol: Document 07/14/22 11:15 KI (Rec: 07/14/22 11:51 KI [id number]) Nutrition Notes Need for Assessment generated from: MD Order Initial or Follow up Reassessment Current Diagnosis Acute Kidney Injury,Sepsis, Hypertension,Respiratory Failure,Malnutrition Other Pertinent Diagnosis s/p PEA w/ROSC, Anoxic Brain Injury, Pneumonia, ABG, Transaminitis, BPH,... Current Diet NPO (since 07/13 04:26), TF- Nepro w/CARBSTEADY @ 35 ml/hr (from D 07/14). Labs/Tests 07/14: K 3.5, CO2 14, BUN 66, Crea 3.7, Glu 243, Ca 6.0. Pertinent Medications 07/14: Nutritionally unremarkable. 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 No body weight change reported in 1 day. Weight Status Overweight Subjective/Other Information RD consult for write/manage TF assessment. Pt on NPO since admission. Pt is on Mechanical Ventilation, O2 saturation @ 96%, according to Physical Assessment History notes. Pt has missing teeth, according to Physical Assessment History notes. Pt is incontinent and presents diarrhea, according to Physical Assessment History notes. Pt shows unspecified bruises as sign of concern for skin risk at the time, according to Physical Assessment History notes. Percent of energy/protein needs met: Pt on NPO since admission. Prescribed TF-Nepro w/ CARBSTEADY @ 35 ml/hr provides for energy/protein needs (1, 530 Kcal/69 g) during LOS, 93% Kcal, 78% AA. Burn Absent Trauma Absent GI Symptoms Diarrhea,Other Food Allergy No Skin Integrity/Comment Unspecified bruises. Current % PO Other Minimum of two criteria No Fluid Accumulation N/A Reduced Executive Officer Special Warfare Team Strength N/A (non-severe) Protein-Calorie Malnutrition N\A #1 Nutrition Diagnosis Inadequate oral intake Comments: Change Nutrition Diagnosis for precision. Diagnosis Progress(for reassessment Continues documentation) Is patient on ventilator? Yes Is Patient Ambulatory and/or Out of Bed No REE-([facility]-confined to bed) [phone] Calculation Used for Recommendations [facility] Additional Notes Protein: 1.2-2 g/Kg ABW; 88- 146 g/day. Fluids: 1 ml/Kcal, or as per MD. Nutrition Intervention Nutrition Support: Start TF-Nepro w/CARBSTEADY @ 35 ml/hr. Flush: 170 ml water Q 4 hr, or as per MD. Kcal 1,530 Protein (gm) 69 Carbohydrates (gm) 137 Fat (gm) 82 Fluid (mL) 618 Fiber (gm) 11 % RDI: 93% Kcal, 78% AA. Goal #1 Provide at least 75% of energy /protein needs through Enteral Feeding during LOS. Follow-Up By: 07/16/22 Additional Comments Start monitoring TF tolerance and BM.
--- NOTE | 2022-07-14 13:04 | Progress Note ---
Assessment and Plan - Patient Problems (1) Cardiopulmonary arrest Current Visit: Yes Status: Acute Plan to address problem: Admitted following an out of hospital cardiopulmonary arrest, currently unresponsive on the vent with evidence of significant anoxic encephalopathy. Echocardiogram shows well-preserved left ventricular systolic function. Continue supportive management. Prognosis is poor. Subjective Date of service: 07/14/22 Principal diagnosis: Out of hospital cardiopulmonary arrest Interval history: Patient is unresponsive, on the vent, monitor shows sinus at 102, systolic blood pressure is 103. Objective Vital Signs Temp Pulse Pulse Pulse Resp Resp BP 07/14/22 12:50 104 H 104/59 07/14/22 11:53 98.3 F 07/14/22 11:10 102 H 28 H 104/63 07/14/22 11:00 102 H 28 H 104/63 07/14/22 10:50 102 H 28 H 109/63 07/14/22 10:40 101 H 28 H 97/62 07/14/22 10:30 101 H 28 H 97/62 07/14/22 10:20 97 H 28 H 105/65 07/14/22 10:10 98 H 28 H 113/67 07/14/22 10:00 92 H 28 H 113/67 07/14/22 09:50 97 H 28 H 109/69 07/14/22 09:40 98 H 28 H 109/68 07/14/22 09:30 98 H 28 H 109/68 07/14/22 09:20 97 H 28 H 105/65 07/14/22 09:10 97 H 28 H 114/70 07/14/22 09:00 97 H 28 H 107/65 07/14/22 08:50 97 H 28 H 104/68 07/14/22 08:40 97 H 28 H 114/70 07/14/22 08:30 96 H 28 H 114/70 07/14/22 08:20 96 H 28 H 115/69 07/14/22 08:10 95 H 28 H 111/70 07/14/22 08:00 94 H 92 H 28 H 111/70 07/14/22 07:50 93 H 28 H 105/70 07/14/22 07:40 92 H 28 H 104/68 07/14/22 07:30 93 H 93 H 28 H 28 H 104/68 07/14/22 07:26 97.7 F 07/14/22 07:25 92 H 105/66 07/14/22 07:20 92 H 28 H 105/66 07/14/22 07:10 92 H 28 H 108/70 07/14/22 07:00 91 H 28 H 108/70 07/14/22 06:50 90 28 H 86/50 07/14/22 06:40 89 28 H 107/69 07/14/22 06:30 91 H 28 H 105/68 07/14/22 06:20 91 H 28 H 111/66 07/14/22 06:10 90 28 H 107/69 07/14/22 06:00 90 28 H 107/69 07/14/22 05:50 89 28 H 113/70 07/14/22 05:40 88 28 H 91/61 07/14/22 05:30 87 28 H 91/61 07/14/22 05:20 86 28 H 83/56 07/14/22 05:10 89 28 H 83/56 07/14/22 05:00 86 28 H 83/56 07/14/22 04:50 88 28 H 91/61 07/14/22 04:40 86 28 H 83/56 07/14/22 04:30 86 28 H 83/56 07/14/22 04:20 86 28 H 83/56 07/14/22 04:10 85 28 H 83/56 07/14/22 04:00 97.7 F 85 87 28 H 83/56 07/14/22 03:50 85 28 H 81/55 07/14/22 03:40 85 28 H 92/63 07/14/22 03:30 85 28 H 92/63 07/14/22 03:20 84 28 H 102/65 07/14/22 03:10 85 28 H 99/66 07/14/22 03:00 85 28 H 99/66 07/14/22 02:50 85 28 H 104/70 07/14/22 02:40 85 28 H 104/69 07/14/22 02:30 85 28 H 104/69 07/14/22 02:20 85 28 H 105/68 07/14/22 02:18 86 28 H 07/14/22 02:10 85 28 H 103/67 07/14/22 02:00 85 28 H 101/68 07/14/22 01:50 85 28 H 101/68 07/14/22 01:40 85 28 H 105/66 07/14/22 01:30 85 28 H 105/66 07/14/22 01:20 85 28 H 103/69 07/14/22 01:10 86 28 H 100/68 07/14/22 01:00 85 28 H 100/68 07/14/22 00:50 86 28 H 111/71 07/14/22 00:40 86 28 H 109/74 07/14/22 00:36 86 109/74 07/14/22 00:30 86 28 H 109/74 07/14/22 00:20 86 28 H 109/71 07/14/22 00:10 85 28 H 106/71 07/14/22 00:00 98 F 85 83 28 H 106/71 07/13/22 23:50 85 28 H 106/71 07/13/22 23:40 85 28 H 106/69 07/13/22 23:30 86 28 H 106/69 07/13/22 23:20 86 28 H 99/67 07/13/22 23:10 86 28 H 99/67 07/13/22 23:00 87 28 H 99/67 07/13/22 22:50 88 28 H 104/67 07/13/22 22:40 88 28 H 103/66 07/13/22 22:30 88 28 H 103/66 07/13/22 22:20 85 28 H 107/67 07/13/22 22:10 85 28 H 107/67 07/13/22 22:00 85 28 H 107/67 07/13/22 21:50 83 28 H 123/81 07/13/22 21:40 84 28 H 123/81 07/13/22 21:30 84 28 H 123/81 07/13/22 21:27 83 07/13/22 21:20 84 28 H 122/76 07/13/22 21:10 84 28 H 122/76 07/13/22 21:00 83 28 H 122/76 07/13/22 20:50 82 85 28 H 28 H 123/81 07/13/22 20:40 83 28 H 117/73 07/13/22 20:30 83 28 H 117/73 07/13/22 20:20 83 28 H 112/69 07/13/22 20:10 83 28 H 112/69 07/13/22 20:00 97.3 F L 83 83 28 H 112/69 07/13/22 19:50 83 28 H 112/68 07/13/22 19:40 83 28 H 112/68 07/13/22 19:30 83 28 H 112/68 07/13/22 19:20 83 28 H 106/65 07/13/22 19:10 83 28 H 106/65 07/13/22 19:00 83 28 H 106/65 07/13/22 18:50 83 28 H 94/58 07/13/22 18:40 83 28 H 94/58 07/13/22 18:30 84 28 H 94/58 07/13/22 18:20 84 28 H 103/71 07/13/22 18:10 85 28 H 95/58 07/13/22 18:00 86 28 H 95/58 07/13/22 17:50 88 28 H 103/71 07/13/22 17:40 88 28 H 103/71 07/13/22 17:30 88 28 H 103/71 07/13/22 17:20 84 28 H 96/64 07/13/22 17:10 81 28 H 96/64 07/13/22 17:00 81 28 H 96/64 07/13/22 16:50 81 28 H 101/64 07/13/22 16:49 81 101/64 07/13/22 16:40 80 28 H 101/64 07/13/22 16:36 97.5 F L 07/13/22 16:30 81 28 H 101/64 07/13/22 16:20 79 28 H 84/57 07/13/22 16:10 80 28 H 67/46 07/13/22 16:00 77 88 28 H 123/78 07/13/22 15:50 80 28 H 123/78 07/13/22 15:40 80 28 H 123/78 07/13/22 15:30 80 28 H 123/78 07/13/22 15:20 79 28 H 122/81 07/13/22 15:10 79 28 H 122/81 07/13/22 15:00 78 28 H 122/81 07/13/22 14:50 78 28 H 121/78 07/13/22 14:42 79 28 H 07/13/22 14:40 78 28 H 121/78 07/13/22 14:30 79 28 H 121/78 07/13/22 14:20 78 28 H 114/78 07/13/22 14:10 78 28 H 114/78 07/13/22 14:00 78 28 H 114/78 07/13/22 13:50 79 28 H 109/73 07/13/22 13:40 79 28 H 109/73 07/13/22 13:30 80 28 H 109/73 07/13/22 13:20 81 28 H 112/74 07/13/22 13:10 82 28 H 112/74 Pulse Ox 07/14/22 12:50 98 07/14/22 11:53 07/14/22 11:10 98 07/14/22 11:00 07/14/22 10:50 98 07/14/22 10:40 97 07/14/22 10:30 07/14/22 10:20 98 07/14/22 10:10 98 07/14/22 10:00 97 07/14/22 09:50 98 07/14/22 09:40 97 07/14/22 09:30 07/14/22 09:20 97 07/14/22 09:10 97 07/14/22 09:00 07/14/22 08:50 96 07/14/22 08:40 96 07/14/22 08:30 07/14/22 08:20 97 07/14/22 08:10 97 07/14/22 08:00 98 07/14/22 07:50 98 07/14/22 07:40 98 07/14/22 07:30 98 07/14/22 07:26 07/14/22 07:25 100 07/14/22 07:20 98 07/14/22 07:10 98 07/14/22 07:00 98 07/14/22 06:50 98 07/14/22 06:40 97 07/14/22 06:30 07/14/22 06:20 98 07/14/22 06:10 98 07/14/22 06:00 07/14/22 05:50 98 07/14/22 05:40 100 07/14/22 05:30 99 07/14/22 05:20 99 07/14/22 05:10 99 07/14/22 05:00 99 07/14/22 04:50 100 07/14/22 04:40 98 07/14/22 04:30 98 07/14/22 04:20 98 07/14/22 04:10 98 07/14/22 04:00 96 07/14/22 03:50 98 07/14/22 03:40 98 07/14/22 03:30 07/14/22 03:20 98 07/14/22 03:10 98 07/14/22 03:00 07/14/22 02:50 99 07/14/22 02:40 98 07/14/22 02:30 07/14/22 02:20 98 07/14/22 02:18 07/14/22 02:10 98 07/14/22 02:00 98 07/14/22 01:50 98 07/14/22 01:40 98 07/14/22 01:30 07/14/22 01:20 98 07/14/22 01:10 98 07/14/22 01:00 07/14/22 00:50 98 07/14/22 00:40 98 07/14/22 00:36 98 07/14/22 00:30 07/14/22 00:20 98 07/14/22 00:10 98 07/14/22 00:00 96 07/13/22 23:50 98 07/13/22 23:40 98 07/13/22 23:30 07/13/22 23:20 98 07/13/22 23:10 98 07/13/22 23:00 07/13/22 22:50 98 07/13/22 22:40 97 07/13/22 22:30 07/13/22 22:20 97 07/13/22 22:10 97 07/13/22 22:00 97 07/13/22 21:50 97 07/13/22 21:40 98 07/13/22 21:30 07/13/22 21:27 07/13/22 21:20 98 07/13/22 21:10 98 07/13/22 21:00 07/13/22 20:50 98 07/13/22 20:40 97 07/13/22 20:30 07/13/22 20:20 97 07/13/22 20:10 97 07/13/22 20:00 96 07/13/22 19:50 97 07/13/22 19:40 96 07/13/22 19:30 07/13/22 19:20 97 07/13/22 19:10 97 07/13/22 19:00 07/13/22 18:50 97 07/13/22 18:40 97 07/13/22 18:30 96 07/13/22 18:20 96 07/13/22 18:10 96 07/13/22 18:00 96 07/13/22 17:50 97 07/13/22 17:40 96 07/13/22 17:30 07/13/22 17:20 96 07/13/22 17:10 97 07/13/22 17:00 96 07/13/22 16:50 96 07/13/22 16:49 96 07/13/22 16:40 96 07/13/22 16:36 07/13/22 16:30 96 07/13/22 16:20 93 07/13/22 16:10 97 07/13/22 16:00 96 07/13/22 15:50 97 07/13/22 15:40 97 07/13/22 15:30 97 07/13/22 15:20 98 07/13/22 15:10 98 07/13/22 15:00 07/13/22 14:50 98 07/13/22 14:42 07/13/22 14:40 98 07/13/22 14:30 07/13/22 14:20 98 07/13/22 14:10 98 07/13/22 14:00 07/13/22 13:50 97 07/13/22 13:40 97 07/13/22 13:30 96 07/13/22 13:20 97 07/13/22 13:10 97 - Physical Examination General: Other (Unresponsive, on the vent) HEENT: Positive: Other (Pupils fixed) Neck: Positive: neck supple, trachea midline Cardiac: Positive: Reg Rate and Rhythm Lungs: Positive: Decreased Breath Sounds Neuro: Positive: Other (Unresponsive, intubated on the vent) Abdomen: Positive: Soft Skin: Negative: Rash Extremities: Absent: edema - Labs and Meds CBC 07/14/22 Range/Units 03:20 WBC 8.2 (4.5-11.0) K/mm3 RBC 4.26 (3.65-5.03) M/mm3 Hgb 12.7 (11.8-15.2) gm/dl Hct 38.6 (35.5-45.6) % Plt Count 130 L (140-440) K/mm3 Comprehensive Metabolic Panel 07/14/22 Range/Units 03:20 Sodium 142 (137-145) mmol/L Potassium 3.5 L (3.6-5.0) mmol/L Chloride 99.2 (98-107) mmol/L Carbon Dioxide 14 L (22-30) mmol/L BUN 66 H (9-20) mg/dL Creatinine 3.7 H (0.8-1.3) mg/dL Glucose 243 H (75-100) mg/dL Calcium 6.0 L (8.4-10.2) mg/dL - Imaging and Cardiology Echo: image reviewed (Normal EF, right heart not well visualized, trace TR trace MR)
--- NOTE | 2022-07-14 13:11 | Electrocardiograph Report ---
[facility] Test Date: 2022-07-13 Test Time: 00:49:31 Pat Name: LOGAN GREGORY Department: Room: A259 1 Gender: M [employer] Examiner: NURSE : 1945 Requested By: LIZ FERNANDO Order Number: [id number] Reading MD: Trey Nance Measurements Intervals Belva Rate: 106 P: 57 WV: 179 QRS: 3 QRSD: 148 T: 266 QT: 387 QTc: 515 Interpretive Statements Sinus tachycardia Probable left atrial enlargement Right bundle branch block ST depression, consider acute lateral ischemia No previous ECG available for comparison Electronically Signed On 07-14-2022 13:10:48 EDT by Trey Nance
--- NOTE | 2022-07-14 14:46 | Consultation ---
History of Present Illness Consult date: 07/14/22 Chief complaint: Coma History of present illness: 76 years old male with past medical history of bladder cancer, blood in the urine, prostate problem was brought to the hospital status post cardiac arrest. Pt was using bathroom and found unresponsive. Down time 5 mins prior to EMS arrival. Pt was asystole on EMS arrival . CPR was given and patient was given 2 rounds epi and 1 bicarb given and pt converted to sinus tach. Epi drip was star jory at 4 mcg/min by EMS. BG 162. Patient was intubated and brought to the emergency room. EMS actively bagging pt. In the emergency room patient EKG was abnormal. Subsequently Case was discussed with on-call cardiology. Patient CT scan of the head also shows severe anoxic brain injury. Also chest x-ray shows severe bilateral pneumonia.'s were going to admit the patient we will put the patient on ICU. Spoke with who is at bedside . patient is intubated . Past History Past Medical History: hypertension, other (blood in urine with surgery. enl arged prostate. ) Past Surgical History: Other (blood in urine with surgery) Social history: no significant social history Family history: hypertension Medications and Allergies Allergies Allergy/AdvReac Type Severity Reaction Status Date / Time No Known Allergies Allergy Verified 08/19/17 12:06 Home Medications Medication Instructions Recorded Confirmed Last Taken Type No Known Home Medications [No 08/23/17 08/23/17 Unknown History Reported Home Medications] Active Meds: Active Medications Acetaminophen (Acetaminophen 325 Mg Tab) 650 mg PO Q4H PRN PRN Reason: Pain MILD(1-3)/Fever >100.5/FORD Albuterol (Albuterol 2.5 Mg/3 Ml Nebu) 2.5 mg IH Q3HRT PRN PRN Reason: Shortness Of Breath Albuterol/Ipratropium (Ipratropium/Albuterol Sulfate 3 Ml Ampul.Neb) 1 ampul IH Q6HRT [facility] Last Admin: 07/14/22 13:51 Dose: 1 ampul Dextrose (Dextrose 50% In Water (25gm) 50 Ml Syringe) 50 ml IV Q30MIN PRN; Protocol PRN Reason: Hypoglycemia Famotidine (Famotidine 20 Mg/2 Ml Inj) 20 mg IV DAILY [facility] Last Admin: 07/14/22 10:19 Dose: 20 mg Hydralazine HCl (Hydralazine 20 Mg/1 Ml Inj) 10 mg IV Q6H PRN PRN Reason: SBP >/=160; DBP >/=100 Hydrophilic Ointment (Lip Therapy Vaseline) 1 applic TP Q2HR PRN PRN Reason: Dry Lips NORepinephrine/NS 8 MG-250 ML (Norepinephrine/Ns 8 Mg-250 Ml (Double Conc)) 8 mg in 250 mls @ 3.75 mls/hr IV TITRATE SUSY; Protocol Last Admin: 07/14/22 10:21 Dose: 6 mcg/min, 11.25 mls/hr Vasopressin 20 unit/ Sodium (Chloride) 101 mls @ 9.09 mls/hr IV TITR SUSY; Pr otocol Sodium Bicarbonate 150 meq/ (Sterile Water) 1,150 mls @ 100 mls/hr IV DIRECT SUSY Last Admin: 07/14/22 11:50 Dose: 100 mls/hr Insulin Human Regular (Insulin Regular, Human 100 Units/1 Ml) 0 units SUB-Q Q6H SUSY; Protocol Last Admin: 07/14/22 11:50 Dose: 2 units Multi-Ingred Cream/Lotion/Oil/Oint (Mineral Oil/Petrolatum, White Ophth Oint 3.5 Gm) 1 applic OU Q4HR PRN PRN Reason: Dry Eye(s) Ondansetron HCl (Ondansetron 4 Mg/2 Ml Inj) 4 mg IV Q8H PRN PRN Reason: Nausea And Vomiting Senna/Docusate Sodium (Sennosides/Docusate Sodium 8.6/50 Mg Tab) 1 tab FEEDTUBE BID SUSY Last Admin: 07/14/22 10:19 Dose: 1 tab Sodium Chloride (Sodium Chloride 0.9% 10 Ml Flush Syringe) 10 ml IV BID SUSY Last Admin: 07/14/22 10:19 Dose: 10 ml Sodium Chloride (Sodium Chloride 0.9% 10 Ml Flush Syringe) 10 ml IV PRN PRN PRN Reason: LINE FLUSH Physical Examination - Vital Signs Vital Signs: Vital Signs Temp Pulse Resp BP Pulse Ox 97.5 F L 98 H 22 52/31 94 07/13/22 00:51 07/13/22 00:51 07/13/22 00:51 07/13/22 00:51 07/13/22 00:51 - Physical Exam Narrative exam: The patient is intubated , the patient is unable to move upper and lower extremity . Results - Laboratory Findings CBC and BMP: 07/14/22 03:20 07/14/22 03:20 Abnormal Lab Findings: Abnormal Labs 07/13/22 07/13/22 07/13/22 01:02 01:06 01:06 WBC Hgb MCV 97 H MCHC 31 L RDW 15.7 H Plt Count Seg Neuts % (Manual) Lymphocytes % (Manual) 13.0 L Lymphocytes # (Manual) PT INR APTT ABG pH 6.950 L* ABG pO2 197.4 H ABG HCO3 10.8 L ABG O2 Saturation ABG Base Excess -20.8 L ABG Hemoglobin 11.3 L Oxyhemoglobin Sodium 133 L Potassium 5.1 H Chloride 90.2 L Carbon Dioxide 10 L BUN 44 H Creatinine 2.8 H Glucose 197 H POC Glucose Lactic Acid Calcium 8.3 L Magnesium 3.00 H AST 432 H ALT 101 H Total Creatine Kinase CK-MB (CK-2) C-Reactive Protein NT-Pro-B Natriuret Pep Total Protein 4.8 L Albumin 2.7 L Lipase 11 L Urine Creatinine 07/13/22 07/13/22 07/13/22 01:06 01:06 01:06 WBC Hgb MCV MCHC RDW Plt Count Seg Neuts % (Manual) Lymphocytes % (Manual) Lymphocytes # (Manual) PT 20.9 H INR 1.59 H APTT ABG pH ABG pO2 ABG HCO3 ABG O2 Saturation ABG Base Excess ABG Hemoglobin Oxyhemoglobin Sodium Potassium Chloride Carbon Dioxide BUN Creatinine Glucose POC Glucose Lactic Acid 18.20 H* Calcium Magnesium AST ALT Total Creatine Kinase 422 H CK-MB (CK-2) 8.9 H C-Reactive Protein NT-Pro-B Natriuret Pep Total Protein Albumin Lipase Urine Creatinine 07/13/22 07/13/22 07/13/22 01:06 03:23 04:25 WBC Hgb MCV MCHC RDW Plt Count Seg Neuts % (Manual) Lymphocytes % (Manual) Lymphocytes # (Manual) PT INR APTT ABG pH 7.221 L ABG pO2 78.2 L ABG HCO3 11.1 L ABG O2 Saturation 93.9 L ABG Base Excess -15.1 L ABG Hemoglobin 12.1 L Oxyhemoglobin 92.3 L Sodium Potassium Chloride Carbon Dioxide BUN Creatinine Glucose POC Glucose Lactic Acid 10.50 H* Calcium Magnesium AST ALT Total Creatine Kinase 342 H CK-MB (CK-2) C-Reactive Protein 57.80 H NT-Pro-B Natriuret Pep 3661 H Total Protein Albumin Lipase Urine Creatinine 07/13/22 07/13/22 07/13/22 04:25 04:25 06:38 WBC Hgb 11.3 L MCV MCHC RDW Plt Count Seg Neuts % (Manual) Lymphocytes % (Manual) Lymphocytes # (Manual) PT 24.4 H INR 1.92 H APTT 94.4 H* ABG pH ABG pO2 ABG HCO3 ABG O2 Saturation ABG Base Excess ABG Hemoglobin Oxyhemoglobin Sodium Potassium Chloride Carbon Dioxide BUN Creatinine Glucose POC Glucose 144 H Lactic Acid Calcium Magnesium AST ALT Total Creatine Kinase CK-MB (CK-2) C-Reactive Protein NT-Pro-B Natriuret Pep Total Protein Albumin Lipase Urine Creatinine 07/13/22 07/13/22 07/13/22 11:16 15:58 16:14 WBC Hgb MCV MCHC RDW Plt Count Seg Neuts % (Manual) Lymphocytes % (Manual) Lymphocytes # (Manual) PT INR APTT ABG pH ABG pO2 ABG HCO3 ABG O2 Saturation ABG Base Excess ABG Hemoglobin Oxyhemoglobin Sodium Potassium Chloride Carbon Dioxide BUN Creatinine Glucose POC Glucose 185 H 195 H Lactic Acid 9.10 H* Calcium Magnesium AST ALT Total Creatine Kinase CK-MB (CK-2) C-Reactive Protein NT-Pro-B Natriuret Pep Total Protein Albumin Lipase Urine Creatinine 07/13/22 07/13/22 07/13/22 17:05 19:31 22:38 WBC Hgb MCV MCHC RDW Plt Count Seg Neuts % (Manual) Lymphocytes % (Manual) Lymphocytes # (Manual) PT INR APTT ABG pH ABG pO2 ABG HCO3 ABG O2 Saturation ABG Base Excess ABG Hemoglobin Oxyhemoglobin Sodium Potassium Chloride Carbon Dioxide BUN Creatinine Glucose POC Glucose Lactic Acid 9.90 H* 9.60 H* Calcium Magnesium AST ALT Total Creatine Kinase CK-MB (CK-2) C-Reactive Protein NT-Pro-B Natriuret Pep Total Protein Albumin Lipase Urine Creatinine 82.2 H 07/13/22 07/13/22 07/13/22 Unknown Unknown Unknown WBC 4.0 L Hgb MCV MCHC RDW Plt Count Seg Neuts % (Manual) Lymphocytes % (Manual) Lymphocytes # (Manual) PT INR APTT ABG pH ABG pO2 ABG HCO3 ABG O2 Saturation ABG Base Excess ABG Hemoglobin Oxyhemoglobin Sodium Potassium Chloride Carbon Dioxide 11 L BUN 51 H Creatinine 3.1 H Glucose 215 H POC Glucose Lactic Acid 8.80 H* Calcium 6.3 L D Magnesium AST ALT Total Creatine Kinase CK-MB (CK-2) C-Reactive Protein NT-Pro-B Natriuret Pep Total Protein Albumin Lipase Urine Creatinine 07/14/22 07/14/22 07/14/22 03:20 03:20 04:15 WBC Hgb MCV MCHC RDW 15.3 H Plt Count 130 L Seg Neuts % (Manual) 77.0 H Lymphocytes % (Manual) 2.0 L Lymphocytes # (Manual) 0.2 L PT INR APTT ABG pH 7.331 L ABG pO2 126.6 H ABG HCO3 13.8 L ABG O2 Saturation ABG Base Excess -10.5 L ABG Hemoglobin 12.8 L Oxyhemoglobin Sodium Potassium 3.5 L Chloride Carbon Dioxide 14 L BUN 66 H Creatinine 3.7 H Glucose 243 H POC Glucose Lactic Acid Calcium 6.0 L Magnesium AST ALT Total Creatine Kinase CK-MB (CK-2) C-Reactive Protein NT-Pro-B Natriuret Pep Total Protein Albumin Lipase Urine Creatinine 07/14/22 11:14 WBC Hgb MCV MCHC RDW Plt Count Seg Neuts % (Manual) Lymphocytes % (Manual) Lymphocytes # (Manual) PT INR APTT ABG pH ABG pO2 ABG HCO3 ABG O2 Saturation ABG Base Excess ABG Hemoglobin Oxyhemoglobin Sodium Potassium Chloride Carbon Dioxide BUN Creatinine Glucose POC Glucose 187 H Lactic Acid Calcium Magnesium AST ALT Total Creatine Kinase CK-MB (CK-2) C-Reactive Protein NT-Pro-B Natriuret Pep Total Protein Albumin Lipase Urine Creatinine Assessment and Plan 1. Hypoxic and Ischemic Encephalopathy status post cardiac arrest . 2. CT Brain - abnormal 3. Neurological Examination -( patient is not able to moves all 4 extremity ). 4. Patient is intubated . 5. Neurological Prognosis is Guarded . 6. Explained to patient family about the Prognosis . Dr. Reich
--- NOTE | 2022-07-14 16:42 | Event Note ---
Date: 07/14/22 I had an extensive discussion with the patients daughters and , we used an pumper head. I explained the current clinical condition and the grave prognosis. While the daughters were understanding, the spouse wants to be given more time, she is states that she is believing for a miracle. she agrees that if he does not breath over the vent by tomorrow to proceed with a brain determination and understands the ramification of the study. Advance care planning was discussed and she wants full code until such time as determined following the brain flow test. 60 mins spent on conferring and planning including advance care discussion
[2022-07-15] MEDS: INSULIN REGULAR, HUMAN 100 UNITS/1 ML SUB-Q SCH ×3 (00:22→11:51)
[2022-07-15] MEDS: NORepinephrine/NS 8 MG-250 ML 8 MG/250 ML INFUS..BTL IV SCH ×2 (01:33→10:20)
[2022-07-15 01:44] LABS: Hematocrit 35.7 % (35.5-45.6); Hemoglobin 11.8 gm/dl (11.8-15.2); Mean Corpuscular HGB Conc 33 % (32-34); Mean Corpuscular Volume 88 fl (84-94); Red Blood Count 4.04 M/mm3 (3.65-5.03)
[2022-07-15 01:47] LABS: Platelet Count 99 K/mm3 (140-440)
[2022-07-15 02:43] LABS: Albumin 1.9 g/dL (3.9-5)
[2022-07-15] MEDS: IPRATROPIUM/ALBUTEROL SULFATE 3 ML AMPUL.NEB IH SCH ×3 (02:51→15:59)
[2022-07-15] MEDS ORDERED: SODIUM CHLORIDE 0.9% 500 ML 500 ML IV ONE (03:03)
[2022-07-15] MEDS ORDERED: CALCIUM GLUCONATE 2,000 MG in SODIUM CHLORIDE 0.9% 100 ML IV ONE (03:03)
--- NOTE | 2022-07-15 04:17 | XRay Report ---
CHEST 1 VIEW INDICATION / CLINICAL INFORMATION: follow up respiratory failure. FINDINGS: SUPPORT DEVICES: No significant change in position. HEART / MEDIASTINUM: The cardiomediastinal silhouette has not significantly changed in the interim. LUNGS / PLEURA: No change in severe right-sided airspace pneumonia when compared yesterday's exam. No pneumothorax. Signer Name: López Chandler MD Signed: 07/15/2022 4:12 AM Workstation Name: [id number]
[2022-07-15 05:28] LABS: ABG HCO3 24.3 mmol/L (20.0-26.0); ABG Methemoglobin 0.8 % (0.0-1.5); ABG Oxygen Saturation 98.4 % (95.0-99.0); ABG PCO2 38.3 mm Hg; ABG PH 7.42 pH Units (7.350-7.450); ABG PO2 124.2 mm Hg (80.0-90.0)
[2022-07-15] MEDS: SENNOSIDES/DOCUSATE SODIUM 8.6/50 MG TAB FEEDTUBE SCH (09:43)
[2022-07-15] MEDS: FAMOTIDINE 20 MG/2 ML INJ IV SCH (10:19)
[2022-07-15] MEDS ORDERED: SODIUM CHLORIDE 0.9% 1000 ML 1,000 ML IV ONE (11:15)
--- NOTE | 2022-07-15 12:13 | Progress Note ---
<NEERAJ GILES - Last Filed: 07/15/22 16:43> Assessment and Plan Assessment and plan: This is a 76-year-old male with bladder cancer, here for dysuria, BPH, HTN admitted s/p cardiac arrest with acute hypoxic respiratory failure, anoxic brain injury, acute kidney injury and hypotension Hospital Course to Date: 07/13: Patient was started on vasopressin, extensive discussion at bedside with family and by CCM. Antibiotics discontinued. Continue supportive care. 07/14: Patient remains unresponsive on life support. Pupils are wide and nonreactive, with no gag/cough reflexes. Neurology consult pending. BP remains labile, patient is still on Levophed and bcarb gtts.Very poor prognosis. Multiple discussion with patient's and daughters by the attending and CCM. awaiting on family's decision on goal of care. 07/15: Remains on the vent and unresponsive, neuro exam is unchanged. Remains on Levo and bcarb gtt with worsen lactic acidosis and now with tachycardia. 1L of IVF bolus ordered. Per family's request plan for [place] brain flow scan today. Very poor prognosis. Plan of care discussed with patient's and daughters at the bedside. Patient remains a FULL code at this time. Assessment and Plan Neuro: Anoxic Brain Injury -Neck supine injury evident on CT head -No cough/gag, pupillary response -No response to painful stimuli -Reorientation as needed -Neurology consult pending Cardiac: s/p cardiac arrest, h/o htn -Cardiology consulted, appreciate recommendations -s/p OSH cardiac arrest with ROSC -Blood pressure monitoring per protocol -Vasopressor support with levophed and vasopressin -MAP goal greater than 65 -Echocardiogram shows LVEF greater than 55% Respiratory: Acute Hypoxic Respiratory Failure -CCM consulted, appreciate recommendations -Intubated on 07/12 with 7.0 OETT at 24 lips -A.m. vent settings: AC/PRVC Rate 28, TV 450, PEEP 8, 50% -See RT notes for titration -A.m. ABG and CXR noted -VAP bundle -SPO2 monitoring GI: Transaminitis, moderate protein calorie malnutrition -Shock liver, LFTs continue to worsen -Continue to trend LFTs -PPI -BR: senakot : Acute kidney injury likely secondary to vasomotor nephropathy, h/o BPH -Nephrology consulted, appreciate recommendations -Sodium bicarb drip -Monitor intake and output -Renally dose medications -Avoid nephrotoxic medications -Urine lites pending -Renal US pending -Trend BMP ID: Sepsis -Hypotension, lactic acidosis, leukopenia, CXR shows severe bilateral multifocal pneumonia -COVID-19 PCR negative -f/u blood culture -Monitor WBC and temperature curve Endo: Hyperglycemia -SSI initiated -Accu-Cheks q. 6 -Avoid Hypoglycemia Heme: Thrombocytopenia Oncology: H/o Bladder cancer- Supportive care -Drop in plt count this am -H&H stable, no s/s of any active bleeding -Continue to trend CBC -Transfuse for hgb less than 7, plt less than 20 GI/DVT Prophylaxis -PPI- Pepcid -SCDs to bilateral lower extremities while in bed Advance Care Planning - Disease education data, care plan, diagnoses, and prognosis were discussed wit h patient's and daughter at the bedside. All questions and concerns were addressed at this time. They acknowledged understanding and agreed with current care plan. Patient remains a FULL code status at this time The high probability of a clinically significant, sudden or life threatening de terioration of the [multiple] system(s) required my full and direct attention, intervention and personal management. The aggregate critical care time was [60] minutes. This time is in addition to time spent performing reported procedures but includes the following: [x] Data Review and interpretation [x] Patient assessment and monitoring of vital signs [x] Documentation [x] Medication orders and management Disposition Plan: ICU Total Time Spent with Patient (Minutes): 60 History Interval history: Patient seen and examined at the bedside. Intubated and unresponsive, not on any sedation. Pupils are wide and nonreactive, with no gag/cough reflexes. Patient remains on Bcarb and Levophed gtts. ST on the monitor, HR in the 130s. JENNA overnight Hospitalist Physical - Physical exam Narrative exam: General appearance: Present: no acute distress, cachectic, other (Intubated and unresponsive) - EENT Eyes: Present: irregular pupil, mydriasis (nonreactived) - Respiratory Respiratory effort: normal Respiratory: bilateral: rhonchi - Cardiovascular Rhythm: regular Heart Sounds: Present: S1 & S2 - Extremities Extremities: no ischemia, pulses intact, pulses symmetrical Extremity abnormal: edema - Peripheral Assessment Generalized Edema Type: Non-pitting Edema Degree: 2+ Capillary Refill: < 3 seconds Skin Temperature: Warm - Abdominal General gastrointestinal: soft, non-distended, hypoactive bowel sounds - Integumentary Integumentary: Present: warm, dry - Psychiatric Psychiatric: other (Intubated and unresponsive, not on sedations) - Neurologic Neurologic: focal deficits (Pupils are wide, irregular, and nonreactive with no gag/cough), other (Intubated and unresponsive, not on sedations) - Allied Health Allied health notes reviewed: nursing, case management - Constitutional Vitals: Temp Pulse Resp BP Pulse Ox 99.8 F H 138 H 28 H 99/55 95 07/15/22 11:30 07/15/22 12:02 07/15/22 12:00 07/15/22 12:00 07/15/22 12:00 HEART Score - HEART Score Troponin: Troponin T 0.014 ng/mL (0.00-0.029) 07/13/22 01:06 Results - Labs CBC & Chem 7: 07/15/22 01:30 07/15/22 01:30 Labs: Laboratory Last Values WBC 9.1 K/mm3 (4.5-11.0) 07/15/22 01:30 RBC 4.04 M/mm3 (3.65-5.03) 07/15/22 01:30 Hgb 11.8 gm/dl (11.8-15.2) 07/15/22 01:30 Hct 35.7 % (35.5-45.6) 07/15/22 01:30 MCV 88 fl (84-94) 07/15/22 01:30 MCH 29 pg (28-32) 07/15/22 01:30 MCHC 33 % (32-34) 07/15/22 01:30 RDW 15.0 % (13.2-15.2) 07/15/22 01:30 Plt Count 99 K/mm3 (140-440) L 07/15/22 01:30 Add Manual Diff Complete 07/14/22 03:20 Total Counted 100 07/14/22 03:20 Seg Neutrophils % Wound Treatment Rn 07/14/22 03:20 Seg Neuts % (Manual) 77.0 % (40.0-70.0) H 07/14/22 03:20 Band Neutrophils % 15.0 % 07/14/22 03:20 Lymphocytes % (Manual) 2.0 % (13.4-35.0) L 07/14/22 03:20 Reactive Lymphs % (Man) 0 % 07/14/22 03:20 Monocytes % (Manual) 2.0 % (0.0-7.3) 07/14/22 03:20 Eosinophils % (Manual) 0 % (0.0-4.3) 07/14/22 03:20 Basophils % (Manual) 0 % (0.0-1.8) 07/14/22 03:20 Metamyelocytes % 4.0 % 07/14/22 03:20 Myelocytes % 0 % 07/14/22 03:20 Promyelocytes % 0 % 07/14/22 03:20 Blast Cells % 0 % 07/14/22 03:20 Nucleated RBC % Not Reportable 07/14/22 03:20 Seg Neutrophils # Man 6.3 K/mm3 (1.8-7.7) 07/14/22 03:20 Band Neutrophils # 1.2 K/mm3 07/14/22 03:20 Lymphocytes # (Manual) 0.2 K/mm3 (1.2-5.4) L 07/14/22 03:20 Abs React Lymphs (Man) 0.0 K/mm3 07/14/22 03:20 Monocytes # (Manual) 0.2 K/mm3 (0.0-0.8) 07/14/22 03:20 Eosinophils # (Manual) 0.0 K/mm3 (0.0-0.4) 07/14/22 03:20 Basophils # (Manual) 0.0 K/mm3 (0.0-0.1) 07/14/22 03:20 Metamyelocytes # 0.3 K/mm3 07/14/22 03:20 Myelocytes # 0.0 K/mm3 07/14/22 03:20 Promyelocytes # 0.0 K/mm3 07/14/22 03:20 Blast Cells # 0.0 K/mm3 07/14/22 03:20 WBC Morphology Not Reportable 07/14/22 03:20 Hypersegmented Neuts Not Reportable 07/14/22 03:20 Hyposegmented Neuts Not Reportable 07/14/22 03:20 Hypogranular Neuts Not Reportable 07/14/22 03:20 Smudge Cells Not Reportable 07/14/22 03:20 Toxic Granulation Not Reportable 07/14/22 03:20 Toxic Vacuolation Not Reportable 07/14/22 03:20 Dohle Bodies Not Reportable 07/14/22 03:20 Pelger-Huet Anomaly Not Reportable 07/14/22 03:20 Merlin Rods Not Reportable 07/14/22 03:20 Platelet Estimate Consistent w auto 07/14/22 03:20 Clumped Platelets Not Reportable 07/14/22 03:20 Plt Clumps, EDTA Not Reportable 07/14/22 03:20 Large Platelets Not Reportable 07/14/22 03:20 Giant Platelets Not Reportable 07/14/22 03:20 Platelet Satelliting Not Reportable 07/14/22 03:20 Plt Morphology Comment Not Reportable 07/14/22 03:20 RBC Morphology Not Reportable 07/14/22 03:20 Dimorphic RBCs Not Reportable 07/14/22 03:20 Polychromasia Not Reportable 07/14/22 03:20 Hypochromasia 1+ 07/14/22 03:20 Poikilocytosis Not Reportable 07/14/22 03:20 Anisocytosis 1+ 07/14/22 03:20 Microcytosis Not Reportable 07/14/22 03:20 Macrocytosis Not Reportable 07/14/22 03:20 Spherocytes Not Reportable 07/14/22 03:20 Pappenheimer Bodies Not Reportable 07/14/22 03:20 Sickle Cells Not Reportable 07/14/22 03:20 Target Cells Not Reportable 07/14/22 03:20 Tear Drop Cells Not Reportable 07/14/22 03:20 Ovalocytes Not Reportable 07/14/22 03:20 Helmet Cells Not Reportable 07/14/22 03:20 Myers-[place] Bodies Not Reportable 07/14/22 03:20 [place] Rings Not Reportable 07/14/22 03:20 Trang Cells Not Reportable 07/14/22 03:20 Bite Cells Not Reportable 07/14/22 03:20 Crenated Cell Few 07/14/22 03:20 Elliptocytes Not Reportable 07/14/22 03:20 Acanthocytes (Spur) Not Reportable 07/14/22 03:20 Rouleaux Not Reportable 07/14/22 03:20 Hemoglobin C Crystals Not Reportable 07/14/22 03:20 Schistocytes Not Reportable 07/14/22 03:20 Malaria parasites Not Reportable 07/14/22 03:20 Vincenzo Bodies Not Reportable 07/14/22 03:20 Hem Pathologist Commnt No 07/14/22 03:20 PT 24.4 Sec. (12.2-14.9) H 07/13/22 04:25 INR 1.92 (0.87-1.13) H 07/13/22 04:25 APTT 94.4 Sec. (24.2-36.6) H* 07/13/22 04:25 ABG pH 7.420 pH Units (7.350-7.450) 07/15/22 04:45 ABG pCO2 38.3 mm Hg 07/15/22 04:45 ABG pO2 124.2 mm Hg (80.0-90.0) H 07/15/22 04:45 ABG HCO3 24.3 mmol/L (20.0-26.0) 07/15/22 04:45 ABG O2 Saturation 98.4 % (95.0-99.0) 07/15/22 04:45 ABG O2 Content 17.0 (0.0-44) 07/15/22 04:45 ABG Base Excess 0.0 mmol/L (-2.0-3.0) 07/15/22 04:45 ABG Hemoglobin 12.3 gm/dl (14.0-18.0) L 07/15/22 04:45 ABG Carboxyhemoglobin 0.9 % (0.0-5.0) 07/15/22 04:45 ABG Methemoglobin 0.8 % (0.0-1.5) 07/15/22 04:45 Oxyhemoglobin 96.8 % (95.0-99.0) 07/15/22 04:45 FiO2 30 % 07/15/22 04:45 Sodium 141 mmol/L (137-145) 07/15/22 01:30 Potassium 3.6 mmol/L (3.6-5.0) 07/15/22 01:30 Chloride 90.5 mmol/L (98-107) L 07/15/22 01:30 Carbon Dioxide 23 mmol/L (22-30) D 07/15/22 01:30 Anion Gap 31 mmol/L 07/15/22 01:30 BUN 80 mg/dL (9-20) H 07/15/22 01:30 Creatinine 4.7 mg/dL (0.8-1.3) H 07/15/22 01:30 Estimated GFR 12 ml/min 07/15/22 01:30 BUN/Creatinine Ratio 17 % 07/15/22 01:30 Glucose 165 mg/dL (75-100) H 07/15/22 01:30 POC Glucose 132 mg/dL (70-105) H 07/15/22 06:05 Lactic Acid 7.70 mmol/L (0.7-2.0) H* 07/15/22 Unknown Calcium 5.0 mg/dL (8.4-10.2) L* D 07/15/22 01:30 Phosphorus 6.50 mg/dL (2.5-4.5) H 07/15/22 01:30 Magnesium 1.90 mg/dL (1.7-2.3) 07/15/22 01:30 Total Bilirubin 2.00 mg/dL (0.1-1.2) H 07/15/22 01:30 AST 2891 units/L (5-40) H 07/15/22 01:30 ALT 487 units/L (7-56) H 07/15/22 01:30 Alkaline Phosphatase 195 units/L (35-129) H 07/15/22 01:30 Total Creatine Kinase 342 units/L (55-170) H 07/13/22 01:06 Total Creatine Kinase 422 units/L (55-170) H 07/13/22 01:06 CK-MB (CK-2) 8.9 ng/mL (0.0-4.0) H 07/13/22 01:06 CK-MB (CK-2) Rel Index 2.1 (0-4) 07/13/22 01:06 Troponin T 0.014 ng/mL (0.00-0.029) 07/13/22 01:06 C-Reactive Protein 57.80 mg/dL (0.00-1.30) H 07/13/22 01:06 NT-Pro-B Natriuret Pep 3661 pg/mL (0-900) H 07/13/22 01:06 Total Protein 3.9 g/dL (6.3-8.2) L 07/15/22 01:30 Albumin 1.9 g/dL (3.9-5) L 07/15/22 01:30 Albumin/Globulin Ratio 1.0 % 07/15/22 01:30 Lipase 11 units/L (13-60) L 07/13/22 01:06 Urine Color Yellow (Yellow) 07/13/22 01:47 Urine Turbidity Slightly cloudy (Clear) 07/13/22 01:47 Specific [place] (Man) 1.020 (1.003-1.030) 07/13/22 01:47 Ur Protein (Man) 2+ mg/dL (Negative) 07/13/22 01:47 Ur Ketones (Man) Negative (Negative) 07/13/22 01:47 Ur Nitrite (Man) Negative (Negative) 07/13/22 01:47 Urine Bilirubin (Man) Negative (Negative) 07/13/22 01:47 Leukocyte Esterase (Man) Negative (Negative) 07/13/22 01:47 Urine WBC (Auto) < 1.0 /HPF (0.0-6.0) 07/13/22 01:47 Urine RBC (Auto) 4.0 /HPF (0.0-6.0) 07/13/22 01:47 Urine RBC (Manual) 3+ (Negative) 07/13/22 01:47 Granular Casts 13 /LPF 07/13/22 01:47 Urine Yeast (Budding) Few /HPF 07/13/22 01:47 Urine Sperm 3+ /HPF (PA[employer] W[employer]ER) 07/13/22 01:47 Urine Creatinine 82.2 mg/dL (0.1-20.0) H 07/13/22 17:05 Urine Sodium 76 mmol/L 07/13/22 17:05 Urine Opiates Screen Negative 07/13/22 01:47 Urine Methadone Screen Negative 07/13/22 01:47 Ur Barbiturates Screen Negative 07/13/22 01:47 Ur Phencyclidine Scrn Negative 07/13/22 01:47 Ur Amphetamines Screen Negative 07/13/22 01:47 U Benzodiazepines Scrn Negative 07/13/22 01:47 Urine Cocaine Screen Negative 07/13/22 01:47 U Marijuana (THC) Screen Negative 07/13/22 01:47 Drugs of Abuse Note Disclamer 07/13/22 01:47 SARS-CoV-2 (PCR) Negative (Negative) 07/13/22 07:56 Maxwell/IV: Voiding Method Indwelling Catheter Active Medications - Current Medications Current Medications: Generic Name Dose Route Start Last Admin Trade Name Freq PRN Reason Stop Dose Admin Acetaminophen 650 mg 07/13/22 04:25 07/14/22 22:00 Acetaminophen 325 Mg Tab PO 650 mg Q4H PRN Administration Pain MILD(1-3)/Fever >100.5/FORD Albuterol 2.5 mg 07/13/22 04:25 Albuterol 2.5 Mg/3 Ml Nebu IH Q3HRT PRN Shortness Of Breath Albuterol/Ipratropium 1 ampul 07/13/22 08:00 07/15/22 08:18 Ipratropium/Albuterol Sulfate 3 Ml Ampul.Neb IH 1 ampul Q6HRT SUSY Administration Dextrose 50 ml 07/14/22 08:48 Dextrose 50% In Water (25gm) 50 Ml Syringe IV Q30MIN PRN Hypoglycemia Protocol Famotidine 20 mg 07/13/22 10:00 07/15/22 10:19 Famotidine 20 Mg/2 Ml Inj IV 20 mg DAILY SUSY Administration Hydralazine HCl 10 mg 07/13/22 04:31 Hydralazine 20 Mg/1 Ml Inj IV Q6H PRN SBP >/=160; DBP >/=100 Hydrophilic Ointment 1 applic 07/14/22 08:48 Lip Therapy Vaseline TP Q2HR PRN Dry Lips NORepinephrine/NS 8 MG-250 ML 8 mg in 250 mls @ 3.75 mls/hr 07/13/22 01:11 07/15/22 10:20 Norepinephrine/Ns 8 Mg-250 Ml (Double Conc) IV 14 mcg/min TITRATE SUSY 26.25 mls/hr Administration Protocol 2 MCG/MIN Vasopressin 20 unit/ Sodium 101 mls @ 9.09 mls/hr 07/13/22 09:00 Chloride IV TITR SUSY Protocol 0.03 UNITS/MIN Sodium Chloride 1,000 mls @ 999 mls/hr 07/15/22 11:15 Nacl 0.9% 1000 Ml IV 07/15/22 12:15 BOLUS ONE Insulin Human Regular 0 units 07/14/22 12:00 07/15/22 11:51 Insulin Regular, Human 100 Units/1 Ml SUB-Q 2 units Q6H SUSY Administration Protocol Multi-Ingred Cream/Lotion/Oil/Oint 1 applic 07/14/22 08:48 Mineral Oil/Petrolatum, White Ophth Oint 3.5 Gm OU Q4HR PRN Dry Eye(s) Ondansetron HCl 4 mg 07/13/22 04:25 Ondansetron 4 Mg/2 Ml Inj IV Q8H PRN Nausea And Vomiting Senna/Docusate Sodium 1 tab 07/14/22 10:00 07/15/22 09:43 Sennosides/Docusate Sodium 8.6/50 Mg Tab FEEDTUBE Not Given BID SUSY Sodium Chloride 10 ml 07/13/22 10:00 07/15/22 10:20 Sodium Chloride 0.9% 10 Ml Flush Syringe IV 10 ml BID SUSY Administration Sodium Chloride 10 ml 07/13/22 04:25 Sodium Chloride 0.9% 10 Ml Flush Syringe IV PRN PRN LINE FLUSH Nutrition/Malnutrition Assess - Dietary Evaluation Nutrition/Malnutrition Findings: Nutrition Notes Start: 07/13/22 14:52 Freq: Status: Active Protocol: Document 07/14/22 11:15 KI (Rec: 07/14/22 11:51 IK [id number]) Nutrition Notes Need for Assessment generated from: MD Order Initial or Follow up Reassessment Current Diagnosis Acute Kidney Injury,Sepsis, Hypertension,Respiratory Failure,Malnutrition Other Pertinent Diagnosis s/p PEA w/ROSC, Anoxic Brain Injury, Pneumonia, ABG, Transaminitis, BPH,... Current Diet NPO (since 07/13 04:26), TF- Nepro w/CARBSTEADY @ 35 ml/hr (from D 07/14). Labs/Tests 07/14: K 3.5, CO2 14, BUN 66, Crea 3.7, Glu 243, Ca 6.0. Pertinent Medications 07/14: Nutritionally unremarkable. Height 5 ft 4 in Weight 72.5 kg [place] Body Weight (kg) 59.09 BMI 27.4 Intake Prior to Admission Good Weight change and time frame Pt states being unsure if loss body weight CORRECTIVE THERAPIST. No body weight change reported in 1 day. Weight Status Overweight Subjective/Other Information RD consult for write/manage TF assessment. Pt on NPO since admission. Pt is on Mechanical Ventilation, O2 saturation @ 96%, according to Physical Assessment History notes. Pt has missing teeth, according to Physical Assessment History notes. Pt is incontinent and presents diarrhea, according to Physical Assessment History notes. Pt shows unspecified bruises as sign of concern for skin risk at the time, according to Physical Assessment History notes. Percent of energy/protein needs met: Pt on NPO since admission. Prescribed TF-Nepro w/ CARBSTEADY @ 35 ml/hr provides for energy/protein needs (1, 530 Kcal/69 g) during LOS, 93% Kcal, 78% AA. Burn Absent Trauma Absent GI Symptoms Diarrhea,Other Food Allergy No Skin Integrity/Comment Unspecified bruises. Current % PO Other Minimum of two criteria No Fluid Accumulation N/A Reduced Forming Process Line Worker Strength N/A (non-severe) Protein-Calorie Malnutrition N\A #1 Nutrition Diagnosis Inadequate oral intake Comments: Change Nutrition Diagnosis for precision. Diagnosis Progress(for reassessment Continues documentation) Is patient on ventilator? Yes Is Patient Ambulatory and/or Out of Bed No REE-([facility]-confined to bed) [phone] Calculation Used for Recommendations [facility] Additional Notes Protein: 1.2-2 g/Kg ABW; 88- 146 g/day. Fluids: 1 ml/Kcal, or as per MD. Nutrition Intervention Nutrition Support: Start TF-Nepro w/CARBSTEADY @ 35 ml/hr. Flush: 170 ml water Q 4 hr, or as per MD. Kcal 1,530 Protein (gm) 69 Carbohydrates (gm) 137 Fat (gm) 82 Fluid (mL) 618 Fiber (gm) 11 % RDI: 93% Kcal, 78% AA. Goal #1 Provide at least 75% of energy /protein needs through Enteral Feeding during LOS. Follow-Up By: 07/16/22 Additional Comments Start monitoring TF tolerance and BM. <RUTHY BAKER - Last Filed: 07/16/22 07:30> Assessment and Plan - Patient Problems (1) Acute respiratory failure Status: Acute (2) Anoxic brain injury Status: Acute (3) Cardiopulmonary arrest Status: Acute Hospitalist Physical - Constitutional Vitals: Temp Pulse Resp BP Pulse Ox 99.8 F H 0 L 28 H 126/60 98 07/15/22 11:30 07/15/22 15:00 07/15/22 14:00 07/15/22 14:00 07/15/22 14:42 HEART Score - HEART Score Troponin: Troponin T 0.014 ng/mL (0.00-0.029) 07/13/22 01:06 Results - Labs CBC & Chem 7: 07/15/22 01:30 07/15/22 01:30 Labs: Laboratory Last Values WBC 9.1 K/mm3 (4.5-11.0) 07/15/22 01:30 RBC 4.04 M/mm3 (3.65-5.03) 07/15/22 01:30 Hgb 11.8 gm/dl (11.8-15.2) 07/15/22 01:30 Hct 35.7 % (35.5-45.6) 07/15/22 01:30 MCV 88 fl (84-94) 07/15/22 01:30 MCH 29 pg (28-32) 07/15/22 01:30 MCHC 33 % (32-34) 07/15/22 01:30 RDW 15.0 % (13.2-15.2) 07/15/22 01:30 Plt Count 99 K/mm3 (140-440) L 07/15/22 01:30 Add Manual Diff Complete 07/14/22 03:20 Total Counted 100 07/14/22 03:20 Seg Neutrophils % Wound Treatment Rn 07/14/22 03:20 Seg Neuts % (Manual) 77.0 % (40.0-70.0) H 07/14/22 03:20 Band Neutrophils % 15.0 % 07/14/22 03:20 Lymphocytes % (Manual) 2.0 % (13.4-35.0) L 07/14/22 03:20 Reactive Lymphs % (Man) 0 % 07/14/22 03:20 Monocytes % (Manual) 2.0 % (0.0-7.3) 07/14/22 03:20 Eosinophils % (Manual) 0 % (0.0-4.3) 07/14/22 03:20 Basophils % (Manual) 0 % (0.0-1.8) 07/14/22 03:20 Metamyelocytes % 4.0 % 07/14/22 03:20 Myelocytes % 0 % 07/14/22 03:20 Promyelocytes % 0 % 07/14/22 03:20 Blast Cells % 0 % 07/14/22 03:20 Nucleated RBC % Not Reportable 07/14/22 03:20 Seg Neutrophils # Man 6.3 K/mm3 (1.8-7.7) 07/14/22 03:20 Band Neutrophils # 1.2 K/mm3 07/14/22 03:20 Lymphocytes # (Manual) 0.2 K/mm3 (1.2-5.4) L 07/14/22 03:20 Abs React Lymphs (Man) 0.0 K/mm3 07/14/22 03:20 Monocytes # (Manual) 0.2 K/mm3 (0.0-0.8) 07/14/22 03:20 Eosinophils # (Manual) 0.0 K/mm3 (0.0-0.4) 07/14/22 03:20 Basophils # (Manual) 0.0 K/mm3 (0.0-0.1) 07/14/22 03:20 Metamyelocytes # 0.3 K/mm3 07/14/22 03:20 Myelocytes # 0.0 K/mm3 07/14/22 03:20 Promyelocytes # 0.0 K/mm3 07/14/22 03:20 Blast Cells # 0.0 K/mm3 07/14/22 03:20 WBC Morphology Not Reportable 07/14/22 03:20 Hypersegmented Neuts Not Reportable 07/14/22 03:20 Hyposegmented Neuts Not Reportable 07/14/22 03:20 Hypogranular Neuts Not Reportable 07/14/22 03:20 Smudge Cells Not Reportable 07/14/22 03:20 Toxic Granulation Not Reportable 07/14/22 03:20 Toxic Vacuolation Not Reportable 07/14/22 03:20 Dohle Bodies Not Reportable 07/14/22 03:20 Pelger-Huet Anomaly Not Reportable 07/14/22 03:20 Merlin Rods Not Reportable 07/14/22 03:20 Platelet Estimate Consistent w auto 07/14/22 03:20 Clumped Platelets Not Reportable 07/14/22 03:20 Plt Clumps, EDTA Not Reportable 07/14/22 03:20 Large Platelets Not Reportable 07/14/22 03:20 Giant Platelets Not Reportable 07/14/22 03:20 Platelet Satelliting Not Reportable 07/14/22 03:20 Plt Morphology Comment Not Reportable 07/14/22 03:20 RBC Morphology Not Reportable 07/14/22 03:20 Dimorphic RBCs Not Reportable 07/14/22 03:20 Polychromasia Not Reportable 07/14/22 03:20 Hypochromasia 1+ 07/14/22 03:20 Poikilocytosis Not Reportable 07/14/22 03:20 Anisocytosis 1+ 07/14/22 03:20 Microcytosis Not Reportable 07/14/22 03:20 Macrocytosis Not Reportable 07/14/22 03:20 Spherocytes Not Reportable 07/14/22 03:20 Pappenheimer Bodies Not Reportable 07/14/22 03:20 Sickle Cells Not Reportable 07/14/22 03:20 Target Cells Not Reportable 07/14/22 03:20 Tear Drop Cells Not Reportable 07/14/22 03:20 Ovalocytes Not Reportable 07/14/22 03:20 Helmet Cells Not Reportable 07/14/22 03:20 Myers-[place] Bodies Not Reportable 07/14/22 03:20 [place] Rings Not Reportable 07/14/22 03:20 [place] Cells Not Reportable 07/14/22 03:20 Bite Cells Not Reportable 07/14/22 03:20 Crenated Cell Few 07/14/22 03:20 Elliptocytes Not Reportable 07/14/22 03:20 Acanthocytes (Spur) Not Reportable 07/14/22 03:20 Rouleaux Not Reportable 07/14/22 03:20 Hemoglobin C Crystals Not Reportable 07/14/22 03:20 Schistocytes Not Reportable 07/14/22 03:20 Malaria parasites Not Reportable 07/14/22 03:20 Vincenzo Bodies Not Reportable 07/14/22 03:20 Hem Pathologist Commnt No 07/14/22 03:20 PT 24.4 Sec. (12.2-14.9) H 07/13/22 04:25 INR 1.92 (0.87-1.13) H 07/13/22 04:25 APTT 94.4 Sec. (24.2-36.6) H* 07/13/22 04:25 ABG pH 7.420 pH Units (7.350-7.450) 07/15/22 04:45 ABG pCO2 38.3 mm Hg 07/15/22 04:45 ABG pO2 124.2 mm Hg (80.0-90.0) H 07/15/22 04:45 ABG HCO3 24.3 mmol/L (20.0-26.0) 07/15/22 04:45 ABG O2 Saturation 98.4 % (95.0-99.0) 07/15/22 04:45 ABG O2 Content 17.0 (0.0-44) 07/15/22 04:45 ABG Base Excess 0.0 mmol/L (-2.0-3.0) 07/15/22 04:45 ABG Hemoglobin 12.3 gm/dl (14.0-18.0) L 07/15/22 04:45 ABG Carboxyhemoglobin 0.9 % (0.0-5.0) 07/15/22 04:45 ABG Methemoglobin 0.8 % (0.0-1.5) 07/15/22 04:45 Oxyhemoglobin 96.8 % (95.0-99.0) 07/15/22 04:45 FiO2 30 % 07/15/22 04:45 Sodium 141 mmol/L (137-145) 07/15/22 01:30 Potassium 3.6 mmol/L (3.6-5.0) 07/15/22 01:30 Chloride 90.5 mmol/L (98-107) L 07/15/22 01:30 Carbon Dioxide 23 mmol/L (22-30) D 07/15/22 01:30 Anion Gap 31 mmol/L 07/15/22 01:30 BUN 80 mg/dL (9-20) H 07/15/22 01:30 Creatinine 4.7 mg/dL (0.8-1.3) H 07/15/22 01:30 Estimated GFR 12 ml/min 07/15/22 01:30 BUN/Creatinine Ratio 17 % 07/15/22 01:30 Glucose 165 mg/dL (75-100) H 07/15/22 01:30 POC Glucose 163 mg/dL (70-105) H 07/15/22 11:49 Lactic Acid 7.70 mmol/L (0.7-2.0) H* 07/15/22 Unknown Calcium 5.0 mg/dL (8.4-10.2) L* D 07/15/22 01:30 Phosphorus 6.50 mg/dL (2.5-4.5) H 07/15/22 01:30 Magnesium 1.90 mg/dL (1.7-2.3) 07/15/22 01:30 Total Bilirubin 2.00 mg/dL (0.1-1.2) H 07/15/22 01:30 AST 2891 units/L (5-40) H 07/15/22 01:30 ALT 487 units/L (7-56) H 07/15/22 01:30 Alkaline Phosphatase 195 units/L (35-129) H 07/15/22 01:30 Total Creatine Kinase 342 units/L (55-170) H 07/13/22 01:06 Total Creatine Kinase 422 units/L (55-170) H 07/13/22 01:06 CK-MB (CK-2) 8.9 ng/mL (0.0-4.0) H 07/13/22 01:06 CK-MB (CK-2) Rel Index 2.1 (0-4) 07/13/22 01:06 Troponin T 0.014 ng/mL (0.00-0.029) 07/13/22 01:06 C-Reactive Protein 57.80 mg/dL (0.00-1.30) H 07/13/22 01:06 NT-Pro-B Natriuret Pep 3661 pg/mL (0-900) H 07/13/22 01:06 Total Protein 3.9 g/dL (6.3-8.2) L 07/15/22 01:30 Albumin 1.9 g/dL (3.9-5) L 07/15/22 01:30 Albumin/Globulin Ratio 1.0 % 07/15/22 01:30 Lipase 11 units/L (13-60) L 07/13/22 01:06 Urine Color Yellow (Yellow) 07/13/22 01:47 Urine Turbidity Slightly cloudy (Clear) 07/13/22 01:47 Specific [place] (Man) 1.020 (1.003-1.030) 07/13/22 01:47 Ur Protein (Man) 2+ mg/dL (Negative) 08/29/22 01:47 Ur Ketones (Man) Negative (Negative) 07/13/22 01:47 Ur Nitrite (Man) Negative (Negative) 07/13/22 01:47 Urine Bilirubin (Man) Negative (Negative) 07/13/22 01:47 Leukocyte Esterase (Man) Negative (Negative) 07/13/22 01:47 Urine WBC (Auto) < 1.0 /HPF (0.0-6.0) 07/13/22 01:47 Urine RBC (Auto) 4.0 /HPF (0.0-6.0) 07/13/22 01:47 Urine RBC (Manual) 3+ (Negative) 07/13/22 01:47 Granular Casts 13 /LPF 07/13/22 01:47 Urine Yeast (Budding) Few /HPF 07/13/22 01:47 Urine Sperm 3+ /HPF ([employer]) 07/13/22 01:47 Urine Creatinine 82.2 mg/dL (0.1-20.0) H 07/13/22 17:05 Urine Sodium 76 mmol/L 07/13/22 17:05 Urine Opiates Screen Negative 07/13/22 01:47 Urine Methadone Screen Negative 07/13/22 01:47 Ur Barbiturates Screen Negative 07/13/22 01:47 Ur Phencyclidine Scrn Negative 07/13/22 01:47 Ur Amphetamines Screen Negative 07/13/22 01:47 U Benzodiazepines Scrn Negative 07/13/22 01:47 Urine Cocaine Screen Negative 07/13/22 01:47 U Marijuana (THC) Screen Negative 07/13/22 01:47 Drugs of Abuse Note Disclamer 07/13/22 01:47 SARS-CoV-2 (PCR) Negative (Negative) 07/13/22 07:56 Microbiology: Microbiology 07/13/22 04:11 Tracheal Aspirate Sputum Culture - Preliminary Maxwell/IV: Voiding Method Indwelling Catheter Nutrition/Malnutrition Assess - Dietary Evaluation Nutrition/Malnutrition Findings: Nutrition Notes Start: 07/13/22 14:52 Freq: Status: Discharge Protocol: Document 07/14/22 11:15 KI (Rec: 07/14/22 11:51 KI [id number]) Nutrition Notes Need for Assessment generated from: MD Order Initial or Follow up Reassessment Current Diagnosis Acute Kidney Injury,Sepsis, Hypertension,Respiratory Failure,Malnutrition Other Pertinent Diagnosis s/p PEA w/ROSC, Anoxic Brain Injury, Pneumonia, ABG, Transaminitis, BPH,... Current Diet NPO (since 07/13 04:26), TF- Nepro w/CARBSTEADY @ 35 ml/hr (from D 07/14). Labs/Tests 07/14: K 3.5, CO2 14, BUN 66, Crea 3.7, Glu 243, Ca 6.0. Pertinent Medications 07/14: Nutritionally unremarkable. Height 5 ft 4 in Weight 72.5 kg [place] Body Weight (kg) 59.09 BMI 27.4 Intake Prior to Admission Good Weight change and time frame Pt states being unsure if loss body weight CORRECTIVE THERAPIST. No body weight change reported in 1 day. Weight Status Overweight Subjective/Other Information RD consult for write/manage TF assessment. Pt on NPO since admission. Pt is on Mechanical Ventilation, O2 saturation @ 96%, according to Physical Assessment History notes. Pt has missing teeth, according to Physical Assessment History notes. Pt is incontinent and presents diarrhea, according to Physical Assessment History notes. Pt shows unspecified bruises as sign of concern for skin risk at the time, according to Physical Assessment History notes. Percent of energy/protein needs met: Pt on NPO since admission. Prescribed TF-Nepro w/ CARBSTEADY @ 35 ml/hr provides for energy/protein needs (1, 530 Kcal/69 g) during LOS, 93% Kcal, 78% AA. Burn Absent Trauma Absent GI Symptoms Diarrhea,Other Food Allergy No Skin Integrity/Comment Unspecified bruises. Current % PO Other Minimum of two criteria No Fluid Accumulation N/A Reduced Forming Process Line Worker Strength N/A (non-severe) Protein-Calorie Malnutrition N\A #1 Nutrition Diagnosis Inadequate oral intake Comments: Change Nutrition Diagnosis for precision. Diagnosis Progress(for reassessment Continues documentation) Is patient on ventilator? Yes Is Patient Ambulatory and/or Out of Bed No REE-([facility]-confined to bed) [phone] Calculation Used for Recommendations [facility] Additional Notes Protein: 1.2-2 g/Kg ABW; 88- 146 g/day. Fluids: 1 ml/Kcal, or as per MD. Nutrition Intervention Nutrition Support: Start TF-Nepro w/CARBSTEADY @ 35 ml/hr. Flush: 170 ml water Q 4 hr, or as per MD. Kcal 1,530 Protein (gm) 69 Carbohydrates (gm) 137 Fat (gm) 82 Fluid (mL) 618 Fiber (gm) 11 % RDI: 93% Kcal, 78% AA. Goal #1 Provide at least 75% of energy /protein needs through Enteral Feeding during LOS. Follow-Up By: 07/16/22 Additional Comments Start monitoring TF tolerance and BM.
--- NOTE | 2022-07-15 13:05 | Progress Note ---
Assessment and Plan - Patient Problems (1) Cardiopulmonary arrest Current Visit: Yes Status: Acute Plan to address problem: Admitted following an out of hospital cardiopulmonary arrest, currently unresponsive on the vent with evidence of significant anoxic encephalopathy. Echocardiogram shows well-preserved left ventricular systolic function. Continue supportive management. Prognosis is poor. Subjective Date of service: 07/15/22 Principal diagnosis: Out of hospital cardiopulmonary arrest Interval history: Patient is on the vent, unresponsive, no new cardiac events reported. Objective Vital Signs Temp Pulse Pulse Pulse Pulse Resp Resp 07/15/22 12:02 138 H 07/15/22 12:00 139 H 138 H 28 H 07/15/22 11:50 139 H 28 H 07/15/22 11:40 135 H 28 H 07/15/22 11:33 134 H 07/15/22 11:30 99.8 F H 134 H 28 H 07/15/22 11:20 134 H 28 H 07/15/22 11:10 134 H 28 H 07/15/22 11:00 133 H 28 H 07/15/22 10:50 133 H 28 H 07/15/22 10:40 134 H 28 H 07/15/22 10:30 132 H 28 H 07/15/22 10:20 131 H 28 H 07/15/22 10:10 131 H 28 H 07/15/22 10:00 131 H 28 H 07/15/22 09:50 131 H 28 H 07/15/22 09:40 132 H 28 H 07/15/22 09:30 132 H 28 H 07/15/22 09:21 133 H 07/15/22 09:20 132 H 28 H 07/15/22 09:10 133 H 28 H 07/15/22 09:00 133 H 28 H 07/15/22 08:50 133 H 28 H 07/15/22 08:40 132 H 28 H 07/15/22 08:30 132 H 28 H 07/15/22 08:20 134 H 28 H 07/15/22 08:10 132 H 28 H 07/15/22 08:00 129 H 134 H 133 H 28 H 28 H 07/15/22 07:51 99.1 F 07/15/22 07:50 127 H 28 H 07/15/22 07:40 128 H 28 H 07/15/22 07:30 127 H 28 H 07/15/22 07:20 127 H 28 H 07/15/22 07:10 126 H 28 H 07/15/22 07:00 127 H 28 H 07/15/22 06:50 126 H 28 H 07/15/22 06:40 126 H 28 H 07/15/22 06:30 126 H 28 H 07/15/22 06:20 126 H 28 H 07/15/22 06:10 125 H 28 H 07/15/22 06:00 125 H 28 H 07/15/22 05:50 125 H 28 H 07/15/22 05:40 125 H 28 H 07/15/22 05:30 126 H 28 H 07/15/22 05:20 126 H 28 H 07/15/22 05:10 126 H 28 H 07/15/22 05:00 126 H 28 H 07/15/22 04:50 127 H 28 H 07/15/22 04:40 128 H 28 H 07/15/22 04:30 128 H 28 H 07/15/22 04:20 128 H 28 H 07/15/22 04:15 130 H 07/15/22 04:10 128 H 28 H 07/15/22 04:00 99 F 128 H 123 H 28 H 07/15/22 03:50 127 H 28 H 07/15/22 03:40 130 H 28 H 07/15/22 03:30 130 H 28 H 07/15/22 03:20 131 H 28 H 07/15/22 03:10 131 H 28 H 07/15/22 03:00 131 H 28 H 07/15/22 02:51 130 H 07/15/22 02:50 130 H 28 H 07/15/22 02:40 128 H 28 H 07/15/22 02:30 129 H 28 H 07/15/22 02:20 130 H 28 H 07/15/22 02:10 131 H 28 H 07/15/22 02:00 129 H 28 H 07/15/22 01:50 129 H 28 H 07/15/22 01:40 130 H 28 H 07/15/22 01:30 130 H 28 H 07/15/22 01:20 130 H 28 H 07/15/22 01:10 129 H 28 H 07/15/22 01:00 129 H 28 H 07/15/22 00:50 130 H 28 H 07/15/22 00:40 129 H 28 H 07/15/22 00:30 130 H 28 H 07/15/22 00:20 129 H 28 H 07/15/22 00:15 130 H 07/15/22 00:10 128 H 28 H 07/15/22 00:00 127 H 130 H 28 H 07/14/22 23:56 99.9 F H 07/14/22 23:50 127 H 28 H 07/14/22 23:44 127 H 28 H 07/14/22 23:40 119 H 28 H 07/14/22 23:30 99 H 28 H 07/14/22 23:20 105 H 28 H 07/14/22 23:10 119 H 28 H 07/14/22 23:00 119 H 28 H 07/14/22 22:50 119 H 28 H 07/14/22 22:40 121 H 28 H 07/14/22 22:30 121 H 28 H 07/14/22 22:20 121 H 28 H 07/14/22 22:10 121 H 28 H 07/14/22 22:00 119 H 28 H 07/14/22 21:50 121 H 28 H 07/14/22 21:40 121 H 28 H 07/14/22 21:30 122 H 28 H 07/14/22 21:20 122 H 28 H 07/14/22 21:10 119 H 28 H 07/14/22 21:00 125 H 28 H 07/14/22 20:50 118 H 28 H 07/14/22 20:40 118 H 28 H 07/14/22 20:38 118 H 118 H 07/14/22 20:30 118 H 28 H 07/14/22 20:20 118 H 28 H 07/14/22 20:10 118 H 28 H 07/14/22 20:00 100.2 F H 118 H 118 H 28 H 07/14/22 19:50 118 H 28 H 07/14/22 19:40 119 H 28 H 07/14/22 19:30 120 H 28 H 07/14/22 19:20 120 H 28 H 07/14/22 19:10 120 H 28 H 07/14/22 19:00 121 H 28 H 07/14/22 18:50 121 H 28 H 07/14/22 18:40 120 H 28 H 07/14/22 18:30 114 H 28 H 07/14/22 18:20 114 H 28 H 07/14/22 18:10 114 H 28 H 07/14/22 18:00 114 H 28 H 07/14/22 17:50 114 H 28 H 07/14/22 17:40 113 H 28 H 07/14/22 17:30 112 H 28 H 07/14/22 17:20 112 H 28 H 07/14/22 17:10 111 H 28 H 07/14/22 17:00 110 H 28 H 07/14/22 16:50 110 H 28 H 07/14/22 16:42 98.0 F 07/14/22 16:40 110 H 28 H 07/14/22 16:30 109 H 28 H 07/14/22 16:20 109 H 28 H 07/14/22 16:10 109 H 28 H 07/14/22 16:00 109 H 103 H 28 H 07/14/22 15:50 108 H 28 H 07/14/22 15:40 108 H 28 H 07/14/22 15:30 108 H 28 H 07/14/22 15:20 108 H 28 H 07/14/22 15:10 108 H 28 H 07/14/22 15:00 107 H 28 H 07/14/22 14:50 107 H 28 H 07/14/22 14:40 107 H 28 H 07/14/22 14:30 106 H 28 H 07/14/22 14:20 107 H 28 H 07/14/22 14:10 106 H 28 H 07/14/22 14:00 106 H 28 H 07/14/22 13:52 105 H 07/14/22 13:50 106 H 28 H 07/14/22 13:40 105 H 28 H 07/14/22 13:30 105 H 28 H 07/14/22 13:20 105 H 28 H 07/14/22 13:10 105 H 28 H Resp BP Pulse Ox 07/15/22 12:02 07/15/22 12:00 99/55 96 07/15/22 11:50 101/57 96 07/15/22 11:40 95/53 95 07/15/22 11:33 95/53 98 07/15/22 11:30 95/53 98 07/15/22 11:20 97/51 98 07/15/22 11:10 100/54 98 07/15/22 11:00 100/54 98 07/15/22 10:50 108/53 97 07/15/22 10:40 112/59 97 07/15/22 10:30 112/59 97 07/15/22 10:20 100/47 98 07/15/22 10:10 103/53 98 07/15/22 10:00 103/53 98 07/15/22 09:50 105/52 98 07/15/22 09:40 103/47 96 07/15/22 09:30 103/47 98 07/15/22 09:21 07/15/22 09:20 104/49 98 07/15/22 09:10 102/47 98 07/15/22 09:00 102/47 98 07/15/22 08:50 115/57 98 07/15/22 08:40 102/49 99 07/15/22 08:30 102/49 99 07/15/22 08:20 103/54 99 07/15/22 08:10 115/57 96 07/15/22 08:00 115/57 98 07/15/22 07:51 07/15/22 07:50 106/57 98 07/15/22 07:40 107/59 98 07/15/22 07:30 107/59 98 07/15/22 07:20 112/60 98 07/15/22 07:10 107/54 98 07/15/22 07:00 107/54 97 07/15/22 06:50 97/55 97 07/15/22 06:40 97/53 97 07/15/22 06:30 97/53 97 07/15/22 06:20 99/52 97 07/15/22 06:10 104/52 98 07/15/22 06:00 104/52 98 07/15/22 05:50 110/53 98 07/15/22 05:40 104/54 98 07/15/22 05:30 104/54 99 07/15/22 05:20 103/53 98 07/15/22 05:10 108/56 98 07/15/22 05:00 108/56 98 07/15/22 04:50 117/58 98 07/15/22 04:40 122/61 98 07/15/22 04:30 122/61 98 07/15/22 04:20 115/61 98 07/15/22 04:15 108/61 99 07/15/22 04:10 105/63 99 07/15/22 04:00 105/63 99 07/15/22 03:50 108/60 99 07/15/22 03:40 110/60 99 07/15/22 03:30 108/61 99 07/15/22 03:20 110/60 100 07/15/22 03:10 93/51 100 07/15/22 03:00 93/51 99 07/15/22 02:51 28 H 07/15/22 02:50 107/57 99 07/15/22 02:40 117/60 99 07/15/22 02:30 117/60 99 07/15/22 02:20 109/56 99 07/15/22 02:10 101/55 99 07/15/22 02:00 101/55 99 07/15/22 01:50 101/57 99 07/15/22 01:40 99/57 99 07/15/22 01:30 99/57 99 07/15/22 01:20 92/59 99 07/15/22 01:10 85/55 100 07/15/22 01:00 85/55 100 07/15/22 00:50 88/55 99 07/15/22 00:40 86/50 99 07/15/22 00:30 88/55 99 07/15/22 00:20 82/51 99 07/15/22 00:15 88/55 99 07/15/22 00:10 86/50 96 07/15/22 00:00 86/50 96 07/14/22 23:56 07/14/22 23:50 121/61 98 07/14/22 23:44 121/61 97 07/14/22 23:40 69/45 100 07/14/22 23:30 54/31 07/14/22 23:20 82/46 100 07/14/22 23:10 76/46 100 07/14/22 23:00 76/46 99 07/14/22 22:50 79/50 100 07/14/22 22:40 79/48 100 07/14/22 22:30 85/51 95 07/14/22 22:20 86/46 100 07/14/22 22:10 90/54 100 07/14/22 22:00 90/54 98 07/14/22 21:50 89/54 100 07/14/22 21:40 103/53 99 07/14/22 21:30 103/53 95 07/14/22 21:20 104/54 99 07/14/22 21:10 102/56 100 07/14/22 21:00 102/56 97 07/14/22 20:50 92/55 100 07/14/22 20:40 94/58 100 07/14/22 20:38 28 H 94/58 100 07/14/22 20:30 94/58 07/14/22 20:20 93/58 100 07/14/22 20:10 93/57 100 07/14/22 20:00 93/57 96 07/14/22 19:50 88/56 100 07/14/22 19:40 91/57 99 07/14/22 19:30 91/57 99 07/14/22 19:20 101/59 100 07/14/22 19:10 98/60 99 07/14/22 19:00 98/60 07/14/22 18:50 91/61 99 07/14/22 18:40 90/53 99 07/14/22 18:30 90/53 99 07/14/22 18:20 93/53 100 07/14/22 18:10 84/51 100 07/14/22 18:00 84/51 96 07/14/22 17:50 86/52 100 07/14/22 17:40 88/52 100 07/14/22 17:30 88/52 99 07/14/22 17:20 88/52 100 07/14/22 17:10 85/54 100 07/14/22 17:00 85/54 100 07/14/22 16:50 99/53 100 07/14/22 16:42 07/14/22 16:40 96/54 100 07/14/22 16:30 96/54 99 07/14/22 16:20 90/56 100 07/14/22 16:10 92/56 93 07/14/22 16:00 92/56 100 07/14/22 15:50 94/54 98 07/14/22 15:40 102/55 98 07/14/22 15:30 102/55 07/14/22 15:20 101/57 98 07/14/22 15:10 93/57 98 07/14/22 15:00 93/57 07/14/22 14:50 90/57 99 07/14/22 14:40 90/55 99 07/14/22 14:30 90/55 98 07/14/22 14:20 94/55 98 07/14/22 14:10 99/58 98 07/14/22 14:00 93/59 96 07/14/22 13:52 28 H 07/14/22 13:50 93/59 99 07/14/22 13:40 99/58 98 07/14/22 13:30 100/59 98 07/14/22 13:20 100/59 99 07/14/22 13:10 99/58 98 - Physical Examination General: Other (Unresponsive, on the vent) HEENT: Positive: Other (Pupils fixed) Neck: Positive: neck supple, trachea midline Cardiac: Positive: Reg Rate and Rhythm Lungs: Positive: Decreased Breath Sounds Neuro: Positive: Other (Unresponsive, intubated on the vent) Abdomen: Positive: Soft Skin: Negative: Rash Extremities: Absent: edema - Labs and Meds Cardiac Enzymes 07/15/22 Range/Units 01:30 AST 2891 H (5-40) units/L CBC 07/15/22 Range/Units 01:30 WBC 9.1 (4.5-11.0) K/mm3 RBC 4.04 (3.65-5.03) M/mm3 Hgb 11.8 (11.8-15.2) gm/dl Hct 35.7 (35.5-45.6) % Plt Count 99 L (140-440) K/mm3 Comprehensive Metabolic Panel 07/15/22 Range/Units 01:30 Sodium 141 (137-145) mmol/L Potassium 3.6 (3.6-5.0) mmol/L Chloride 90.5 L (98-107) mmol/L Carbon Dioxide 23 D (22-30) mmol/L BUN 80 H (9-20) mg/dL Creatinine 4.7 H (0.8-1.3) mg/dL Glucose 165 H (75-100) mg/dL Calcium 5.0 L* D (8.4-10.2) mg/dL AST 2891 H (5-40) units/L ALT 487 H (7-56) units/L Alkaline Phosphatase 195 H (35-129) units/L Total Protein 3.9 L (6.3-8.2) g/dL Albumin 1.9 L (3.9-5) g/dL - Imaging and Cardiology Echo: image reviewed (Normal EF, right heart not well visualized, trace TR trace MR)
--- NOTE | 2022-07-15 13:27 | Nuclear Medicine Report ---
NM BRAIN FLOW HISTORY: Anoxic injury COMPARISON: None. TECHNIQUE: Following administration of radiopharmaceutical, followed by a saline flush, immediate dyn amic images of the head and neck were acquired in the anterior projection for one minute. Subsequentl y, static images of the head were obtained. RADIOPHARMACEUTICAL: 20.5 mCi of [id number] FINDINGS: DYNAMIC IMAGING: No activity in the internal carotid arteries with no identification of the anterior and middle cerebral arteries. DELAYED IMAGING: No intracranial activity is identified. Increased activity in the nose is indicativ e of increased collateral flow through the external carotids. Additional Findings: None. IMPRESSION: 1. Intracranial cerebral perfusion is absent. Signer Name: Jay Jones MD Signed: 07/15/2022 1:23 PM Workstation Name: [id number]
[2022-07-15] MEDS ORDERED: LORazepam 2 MG/ML VIAL IV PRN ×2 (14:02)
[2022-07-15 14:03] VITALS: BP 126/60
--- NOTE | 2022-07-15 14:04 | Event Note ---
Date: 07/15/22 Per family request Brain flow scan was done and showed no blood flow to the brain. Patients and 2 daughters elected to make him a DNR and proceed with withdrawal of life support. Information relayed to the consulting actuary, and no objections. Proceeded with withdrawal of life support/Terminal wean.
[2022-07-15] MEDS ORDERED: ACETAMINOPHEN 650 MG RECT SUPP PR PRN (14:30)
[2022-07-15] MEDS ORDERED: ONDANSETRON 4 MG/2 ML INJ IV PRN (14:30)
[2022-07-15] MEDS ORDERED: HYPROMELLOSE 0.5% OPHTH SOLN 15 ML OU PRN (14:30)
[2022-07-15] MEDS ORDERED: MORPHINE 2 MG/1 ML INJ IV PRN ×2 (14:30)
[2022-07-15] MEDS ORDERED: SCOPOLAMINE TRANSDERMAL PATCH 72 HR TD SCH (15:00)
--- NOTE | 2022-07-15 15:49 | Death Note ---
Note Date of : 07/15/22 Time of : 15:00 Time Pronounced: 15:00 (Called to the bedside following terminal extubation patient . No spontaneous breathing or lung sounds appreciated. No heart sounds are auscultated. Patient unresponsive to verbal and noxious stimuli. Time of is not documented discussed with family in detail condolences expressed) - Preliminary Cause of (problem) (1) Acute respiratory failure Preliminary cause of (2) Anoxic brain injury Preliminary cause of (3) Cardiopulmonary arrest Preliminary cause of
--- NOTE | 2022-07-15 16:44 | Death Summary ---
Summary - Providers Date of service: 07/15/22 Consults: 07/13/22 03:21 Consult to Physician [CONS] Stat Comment: Consulting Provider: MADELIN TREVINO Physician Instructions: Reason For Exam: abnormal ekg , post cardiac arrest 07/13/22 04:25 Consult to Physician [CONS] Routine Comment: Consulting Provider: SEBAS TORRES Physician Instructions: Reason For Exam: Cardiac arrest 07/13/22 04:31 Consult to Physician [CONS] Routine Comment: Consulting Provider: ZARIA ROJAS Physician Instructions: Reason For Exam: Anoxic brain injury 07/13/22 17:06 Consult to Physician [CONS] Routine Comment: nurse spoke with dr. diehl/ankur Consulting Provider: CONNIE DIEHL Physician Instructions: Reason For Exam: sariah 07/14/22 08:31 Consult to Dietitian/Nutrition [CONS] Routine Physician Instructions: Reason For Exam: Reason for Consult: Write/Manage Tube Feeding Attending: RUTHY BAKER MD - summary Date of admission: 07/13/22 04:36 Date of : 07/15/22
== END 2022-07-15 15:00 | DRG 871 ==
LOC: ED 00:52 → CC1 04:36
PROVIDERS: ADMIT Hospitalist; ATTEND Internal Medicine
PROC: 5A1945Z Respiratory Ventilation, 24-96 Consecutive Hours (ICD-10-PCS; principal; 2022-07-13)
PROC: 0BH17EZ Insertion of Endotracheal Airway into Trachea, Via Natural or Artificial Opening (ICD-10-PCS; 2022-07-13)
PROC: 4A033R1 Measurement of Arterial Saturation, Peripheral, Percutaneous Approach (ICD-10-PCS; 2022-07-13)
PROC: 05HY33Z Insertion of Infusion Device into Upper Vein, Percutaneous Approach (ICD-10-PCS; 2022-07-13)
PROC: B543ZZA Ultrasonography of Right Jugular Veins, Guidance (ICD-10-PCS; 2022-07-13)
DX: A41.9 Sepsis, unspecified organism (principal); I46.9 Cardiac arrest, cause unspecified; J18.9 Pneumonia, unspecified organism; J96.01 Acute respiratory failure with hypoxia; N17.0 Acute kidney failure with tubular necrosis; G93.1 Anoxic brain damage, not elsewhere classified; E44.0 Moderate protein-calorie malnutrition; Z20.822 Contact with and (suspected) exposure to COVID-19; Z66 Do not resuscitate; C67.9 Malignant neoplasm of bladder, unspecified; I10 Essential (primary) hypertension; N40.0 Benign prostatic hyperplasia without lower urinary tract symptoms; R73.9 Hyperglycemia, unspecified; D69.6 Thrombocytopenia, unspecified; Z82.49 Family history of ischemic heart disease and other diseases of the circulatory system; Z68.27 Body mass index [BMI] 27.0-27.9, adult
CPT/HCPCS: 36415; 36600; 70450; 71045; 76770; 78601; 80048; 80053; 80307; 81001; 82140; 82550; 82553; 82570; 82803; 82962; 83690; 83735; 83880; 84100; 84300; 84484; 85007; 85014; 85018; 85025; 85027; 85049; 85610; 85730; 86140; 87070; 87205; 93005; 93306; 94002; 94003; 94640; G0378; J2354; J3490; Q9967; A9512; C8929; J0171; J0610; J1644; J1815; J2060; J2270; J2543; J3370; J7030; J7040; J7042; U0003